=== PATIENT | female | born 1940 | race Caucasian/White ===

== ENCOUNTER 2018-01-29 03:54 | Inpatient (IN) ==
[2018-01-29] MEDS ORDERED: IOPAMIDOL 100 ML BOTTLE IV ONE (03:55)
--- NOTE | 2018-01-29 04:37 | Emergency Department Note ---
Fever HPI - General Chief Complaint: Fever Stated Complaint: fever Time Seen by Provider: 01/29/18 04:12 Source: family, EMS Mode of arrival: EMS Limitations: no limitations - History of Present Illness HPI Narrative: Patient brought in by ambulance due to increasing shortness of breath and fever. USP states 102 temperature recorded however current temperature now is 100.4. Patient had diverticulitis with perforation and thus had colectomy and osteotomy performed at [facility] and was also diagnosed with pneumonia related to MRSA on 01/22. She has been on IV vancomycin and Rocephin. She was seen on 01/25 at [facility] ED and her chest x- ray at that time was normal she has chronic back pain and that 1 of her complaints she has myasthenia gravis is just on prednisone. She does have a history of COPD and CHF her sats are 90% when she first arrived on room air but with O2 is back up to 94. States that prior to being hospitalized she did have oxygen used on a daily basis because of her COPD she states however she is not on oxygen at the usp.Her temperature is 100.4 the pulse is 141 respiratory rate 22 blood pressure 165/99 pulse ox 90% on room air rates the pain in her back is a 9/10 which she states is a chronic problem. USP states she is a DNR with limited interventions. Her daughter is here and confirms that she is DNR/DNI. Patient has a history of A. fib and CHF - Related Data Home Medications Medication Instructions Recorded Confirmed ALPRAZolam [Xanax] 1 mg PO HS 05/08/15 01/29/18 Cholecalciferol (Vitamin D3) 5,000 unit PO QDAY 05/08/15 01/29/18 [Vitamin D-3] albuterol sulfate HFA 90 2 puff INHALATION QID PRN g 06/18/17 01/29/18 mcg/actuation aerosol inhaler ipratropium bromide 0.02 % 0.5 mg INHALATION Q6H PRN ml 09/24/17 01/29/18 solution for inhalation ivabradine 5 mg tablet 5 mg PO BID 09/24/17 01/29/18 montelukast 10 mg tablet 10 mg PO QPM 09/24/17 01/29/18 trazodone 50 mg tablet 50 mg PO HS tab 09/24/17 01/29/18 Ibuprofen [Ibu] 600 mg PO ONCE PRN 01/29/18 01/29/18 Ondansetron HCl [Zofran ODT] 4 mg SL Q4-6HP PRN 01/29/18 01/29/18 Pantoprazole [Protonix] 40 mg PO ONCE 01/29/18 01/29/18 predniSONE [Prednisone] 12.5 mg PO ONCE 01/29/18 01/29/18 Allergies Allergy/AdvReac Type Severity Reaction Status Date / Time fluoxetine Allergy Verified 01/29/18 03:59 immune globulin,alpha (IgA) Allergy Verified 01/29/18 03:59 codeine AdvReac Mild Hallucinati Verified 09/24/17 13:19 ng morphine AdvReac Mild Hallucinati Verified 09/24/17 13:19 ng Review of Systems All systems ED: reviewed and negative except as stated. Constitutional: Reports: fever, chills Cardiovascular: Reports: dyspnea on exertion. Denies: chest pain, palpitations Respiratory: Reports: shortness of breath, cough Gastrointestinal: Reports: nausea. Denies: abdominal pain, vomiting Genitourinary: Denies: dysuria, urgency, frequency Musculoskeletal: Reports: back pain Fever PMH - Past Medical History [facility] Narrative: All Active Problems (Last Reviewed 09/24/17 @ 14:02 by Aung Bearden MD) Sleepiness (Acute) Medication side effects (Acute) Dyspnea (Chronic) Arthritis of sacroiliac joint of both sides (Chronic) Macular degeneration (Chronic) Osteoporosis (Chronic) Fracture of left foot (Chronic ~01/2006) Myasthenia gravis (Chronic) Atypical chest pain (Chronic) Past Surgical History (Last Reviewed 09/24/17 @ 14:02 by Aung Bearden MD) History of lumbar surgery (Chronic ~10/2010) Hx of total hysterectomy (Chronic) Family History (Last Reviewed 09/24/17 @ 14:02 by Aung Bearden MD) Mother Heart disease Hypertension Kidney disease Arthritis Osteoporosis Medical history: Reports: atrial fibrillation, CHF, hypertension, other ( myasthenia gravis. CHRONIC NARCOTICS. Chronic PREDNISONE. Pneumonia. Chronic anticoagulation with Lovenox.). Denies: cancer, CVA, DVT, DM, pulmonary embolus Psychiatric history: Reports: anxiety, depression - Social History smoking status: Never smoker (She does have COPD they are uncertain whether causes although her did smoke heavily) Alcohol use: Reports: None Drug use: Reports: none. Denies: marijuana Physical Exam Limitations: no limitations General appearance: anxious Head: atraumatic, normocephalic Eye: Present: normal appearance, PERRL ENT: normal exam, normal oropharynx, mucous membranes moist Neck: Present: normal inspection, full ROM Chest: Present: normal inspection, symmetric chest wall rise Respiratory: Present: normal lung sounds bilaterally Cardiovascular: Present: regular rate, normal rhythm, tachycardia. Absent: bradycardia Abdominal: Present: soft, normal bowel sounds. Absent: distention, tenderness, guarding, rebound, rigidity Extremities: Present: normal inspection, full ROM. Absent: tenderness Back: Present: tenderness, L-S tenderness Neurological: Present: alert, oriented X3, CN II-XII intact, reflexes normal. Absent: motor sensory deficit Psychiatric: Present: anxious Course Vital Signs Temperature 100.4 F H 01/29/18 03:59 Pulse Rate 141 H 01/29/18 03:59 Respiratory Rate 22 01/29/18 03:59 Blood Pressure 165/99 01/29/18 03:59 Pulse Oximetry (%) 90 01/29/18 03:59 Temperature 102.1 F H 01/29/18 06:51 Pulse Rate 144 H 01/29/18 07:07 Respiratory Rate 39 H 01/29/18 07:07 Blood Pressure 146/103 01/29/18 07:01 Pulse Oximetry (%) 90 01/29/18 07:07 Fever - MDM Narrative Medical decision making narrative: Patient was given a DuoNeb and during the DuoNeb her heart rate did go back down to 90 and appeared to be in flutter. However she is continued to run at 140. Patient given ditialzem.. Patient had an episode where her sats dropped to the 70s and required high flow O2 nonrebreather bag and however she did cough and did clear her lungs and her sats have come back to the 90s and is now on just 2 L nasal cannula at 95% d-dimer is elevated at 2.730 calcitonin less than 0.05 lactic acid running at 1.2 and can panel normal with a BUN of 8 and creatinine 1.0 sodium is 141 potassium 3.0 proBNP is 910 initial ABG showed pH of 7.47 the CO2 is 45 and the O2 at 72 on oxygen. CTA of the chest and abdomen is being performed at this time CTA shows no evidence of pulmonary emboli. Dr. Cam contacted requested a flu swab as well as a manual differential patient to be admitted. SIRS criteria - Lab Data Result diagrams: 01/29/18 04:18 01/29/18 04:18 Lab Results 01/29/18 01/29/18 01/29/18 Range/Units 04:18 04:18 04:18 WBC 3.5 L (4.5-11.0) K/mcL RBC 3.26 L (4.00-5.20) M/mcL Hgb 9.8 L (12.0-15.0) g/dL Hct 29.4 L (36.0-48.0) % MCV 90.2 (80.0-100.0) fL MCH 30.2 (26.0-34.0) pg MCHC 33.5 (31.0-36.0) g/dL RDW 17.2 H (11.5-14.5) % Plt Count 234 (140-440) K/mcL MPV 7.4 (7.4-10.4) fL Gran % 57.6 (38.0-78.0) % Lymph % (Auto) 20.5 (15.5-49.0) % [place] % (Auto) 21.0 H (1.0-12.0) % Eos % (Auto) 0.3 (0.0-7.0) % Baso % (Auto) 0.6 (0.0-2.0) % Gran # 2.0 (1.8-8.0) K/mcL Lymph # (Auto) 0.7 L (1.5-4.8) K/mcL [place] # (Auto) 0.7 (0.1-0.9) K/mcL Eos # (Auto) 0 (0.0-0.7) K/mcL Baso # (Auto) 0 (0.0-0.3) K/mcL D-Dimer (0.00-0.40) ug/ml VBG Lactic Acid 1.2 (0.5-2.2) mmol/L Sodium 141 (133-145) mmol/L Potassium 3.0 L (3.3-5.1) mmol/L Chloride 99 (96-108) mmol/L Carbon Dioxide 28 (22-30) mmol/L Anion Gap 14.0 (8-16) BUN 8 (8-23) mg/dl Creatinine 1.0 (0.6-1.1) mg/dl GFR Calculation 54 Glucose 72 (70-105) mg/dL Calcium 8.1 L (8.6-10.4) mg/dl Total Bilirubin 0.2 (0.0-1.0) mg/dL AST 22 (0-37) U/l ALT 15 (0-40) U/l Alkaline Phosphatase 80 (39-117) U/L NT-Pro-B Natriuret Pep 910.4 H (0-450) pg/ml Total Protein 5.6 L (5.9-8.4) gm/dL Albumin 3.2 (3.2-5.2) gm/dL Globulin 2.4 (2.2-3.7) gm/dL Albumin/Globulin Ratio 1.3 (1.0-2.3) Procalcitonin (<0.10) ng/mL Urine Color Urine Appearance Urine pH (5.0-9.0) Ur Specific [place] (1.000-1.035) Urine Protein (NEG) mg/dL Urine Glucose (UA) (NEG) mg/dL Urine Ketones (NEG) mg/dL Urine Occult Blood (<0.03) mg/dL Urine Nitrate (NEG) Urine Bilirubin (NEG) mg/dL Urine Urobilinogen (NEG) mg/dL Ur Leukocyte Esterase (NEG) /uL Urine RBC (0-1) /hpf Urine WBC (0-4) /hpf Ur Squamous Epith Cells (0-4) /hpf Amorphous Crystals (0) /hpf Urine Bacteria (0) /hpf Hyaline Casts (0-2) /lpf Urine Mucus (0) /hpf Ur Culture Indicated? 01/29/18 01/29/18 01/29/18 Range/Units 04:18 04:34 04:52 WBC (4.5-11.0) K/mcL RBC (4.00-5.20) M/mcL Hgb (12.0-15.0) g/dL Hct (36.0-48.0) % MCV (80.0-100.0) fL MCH (26.0-34.0) pg MCHC (31.0-36.0) g/dL RDW (11.5-14.5) % Plt Count (140-440) K/mcL MPV (7.4-10.4) fL Gran % (38.0-78.0) % Lymph % (Auto) (15.5-49.0) % [place] % (Auto) (1.0-12.0) % Eos % (Auto) (0.0-7.0) % Baso % (Auto) (0.0-2.0) % Gran # (1.8-8.0) K/mcL Lymph # (Auto) (1.5-4.8) K/mcL [place] # (Auto) (0.1-0.9) K/mcL Eos # (Auto) (0.0-0.7) K/mcL Baso # (Auto) (0.0-0.3) K/mcL D-Dimer 2.73 H (0.00-0.40) ug/ml VBG Lactic Acid (0.5-2.2) mmol/L Sodium (133-145) mmol/L Potassium (3.3-5.1) mmol/L Chloride (96-108) mmol/L Carbon Dioxide (22-30) mmol/L Anion Gap (8-16) BUN (8-23) mg/dl Creatinine (0.6-1.1) mg/dl GFR Calculation Glucose (70-105) mg/dL Calcium (8.6-10.4) mg/dl Total Bilirubin (0.0-1.0) mg/dL AST (0-37) U/l ALT (0-40) U/l Alkaline Phosphatase (39-117) U/L NT-Pro-B Natriuret Pep (0-450) pg/ml Total Protein (5.9-8.4) gm/dL Albumin (3.2-5.2) gm/dL Globulin (2.2-3.7) gm/dL Albumin/Globulin Ratio (1.0-2.3) Procalcitonin < 0.05 (<0.10) ng/mL Urine Color Yellow Urine Appearance Hazy Urine pH 6.0 (5.0-9.0) Ur Specific [place] 1.012 (1.000-1.035) Urine Protein 30 A (NEG) mg/dL Urine Glucose (UA) Negative (NEG) mg/dL Urine Ketones Neg (NEG) mg/dL Urine Occult Blood Neg (<0.03) mg/dL Urine Nitrate Neg (NEG) Urine Bilirubin Neg (NEG) mg/dL Urine Urobilinogen Neg (NEG) mg/dL Ur Leukocyte Esterase Neg (NEG) /uL Urine RBC 1 (0-1) /hpf Urine WBC 0 (0-4) /hpf Ur Squamous Epith Cells 0 (0-4) /hpf Amorphous Crystals Few A (0) /hpf Urine Bacteria 0 (0) /hpf Hyaline Casts 4 H (0-2) /lpf Urine Mucus Few (0) /hpf Ur Culture Indicated? No Disposition Pt seen by TERRA[facility] FINISHER/PA only: No Clinical Impression: Sepsis Disposition: Xfer As Inpt ([facility]) Condition: Fair Referrals: Ashley Azar ARNP [Primary Care Provider] -
[2018-01-29] MEDS ORDERED: IPRATROPIUM/ALBUTEROL 3 ML AMPUL.NEB NEB ONE (04:43)
--- NOTE | 2018-01-29 04:49 | XRay Report ---
CLINICAL INFORMATION: SOB COMPARISON: 01/25/2018 FINDINGS: Left PICC line tip remains in satisfactory position overlying the SVC/right atrial junction. Heart is mildly enlarged, but unchanged. Mediastinum and pulmonary vessels are normal. Minor airspace disease developing in the right base likely represents atelectasis. Right diaphragm is chronically elevated IMPRESSION: Minor right basilar atelectasis. Mild cardiomegaly - stable Interpreted and Authenticated by: Roland Simmons 01/29/18
[2018-01-29] MEDS ORDERED: 0.9 % SODIUM CHLORIDE 1,000 ML IV ONE (04:55)
[2018-01-29] MEDS ORDERED: VANCOMYCIN 1,500 MG in 0.9 % SODIUM CHLORIDE 500 ML IV ONE (04:55)
[2018-01-29] MEDS ORDERED: DILTIAZEM 25 MG/5 ML VIAL IV ONE (05:25)
[2018-01-29] MEDS ORDERED: DILTIAZEM 125 MG in DEXTROSE 5% IN WATER 100 ML IV SCH (05:30)
[2018-01-29 05:42] LABS: ALT/SGPT 15 U/l (0-40); Albumin 3.2 gm/dL (3.2-5.2); Albumin/Globulin Ratio 1.3 (1.0-2.3); Alkaline Phosphatase 80 U/L (39-117); Blood Urea Nitrogen 8 mg/dl (8-23); proBNP 910.4 pg/ml (0-450)
[2018-01-29 06:03] LABS: Basophils # (Auto) 0 K/mcL (0.0-0.3); Basophils % (Auto) 0.6 % (0.0-2.0); Eosinophils # (Auto) 0 K/mcL (0.0-0.7); Eosinophils % (Auto) 0.3 % (0.0-7.0); Granulocytes % (Auto) 57.6 % (38.0-78.0); Lymphocytes # (Auto) 0.7 K/mcL (1.5-4.8); Lymphocytes % (Auto) 20.5 % (15.5-49.0); Mean Cell Volume 90.2 fL (80.0-100.0); Mean Corpuscular HGB Conc 33.5 g/dL (31.0-36.0); Mean Corpuscular Hemoglobin 30.2 pg (26.0-34.0); Monocytes # (Auto) 0.7 K/mcL (0.1-0.9); Platelet Count 234 K/mcL (140-440); RBC 3.26 M/mcL (4.00-5.20); Red Cell Distribution Width 17.2 % (11.5-14.5)
[2018-01-29 06:42] LABS: Appearance,Urine HAZY; Bacteria,Urine 0 /hpf (0); Bilirubin,Urine NEG (NEG); Color,Urine YELLOW; Glucose,Urine (UA) NEGATIVE (NEG); Leukocyte Esterase,Urine NEG /uL (NEG); Mucus,Urine FEW /hpf (0); Protein,Urine 30 mg/dL (NEG); Specific Gravity,Urine 1.012 (1.000-1.035); Urine Amorphous Crystals FEW /hpf (0); Urine Blood NEG mg/dL (<0.03); Urine Hyaline Cast 4 /lpf (0-2); Urine RBC 1 /hpf (0-1); Urine Squamous Epithelial Cell 0 /hpf (0-4); Urine WBC 0 /hpf (0-4); Urobilinogen,Urine NEG (NEG)
[2018-01-29] MEDS ORDERED: ACETAMINOPHEN 325 MG TABLET PO ONE (06:45)
[2018-01-29] MEDS ORDERED: CEFEPIME 2 GM VIAL IV SCH (09:00)
--- NOTE | 2018-01-29 09:04 | Internal Med History&Physical ---
<Devan Gautam - Last Filed: 01/29/18 09:26> Medical - H&P: HPI Patient information: Note initiated : 01/29/18 at 8:55 am Service Date, if different from initiated Date: [] Patient: Inessa Torres a 77 y/o F admitted on for fever. Chief Complaint: [] Chief complaint: SOB History of present illness: Ms. Torres is a 77 year old F who presented to the ED today with a miriad of problems. Both her and her ex- [id number] provided the history. She states that she has been short of breath for the last few days with a green productive cough while in [facility] home. Pt came in a couple of days ago to the ED for productive cough, but was rehydrated and not admitted (per pt). 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 Manzano. She also had a portion of her colon removed in [place]. All of this resulted in her being placed in [facility] for rehabilitation. She has been there for a few weeks, but only in the last few days has complained of SOB. She is on 2L of oxygen at home, but received none at [place]. Pt also reports fever , chills and recent weight loss. She also states she has 8/10 pain all over her body. Daughter in law states that the aids at [place] were doing a poor job of changing/emptying pt's colostomy bag and that some contents might have entered a nearby recent suture. - Constitutional Constitutional: Present: chills, fatigue, fever(s), headache(s), night sweats, weakness, weight loss - Cardiovascular Cardiovascular: Present: chest pain (when coughing), irregular heart rhythm, leg edema, palpatations - Respiratory Respiratory: Present: cough, dyspnea, excessive phlegm production, pain with cough. Absent: hemoptysis - Gastrointestinal Gastrointestinal: Present: early satiety, nausea. Absent: abdominal pain, diarrhea, vomiting - Musculoskeletal Musculoskeletal: Present: arthralgias, back pain, myalgias - Integumentary Integumentary: Present: dry skin, unusual bruising - Neurological Neurological: Present: dizziness, headache(s), weakness Medical - H&P: PMH Medical history: Myasthenia gravis HTN Paralyzed rt diaphragm Surgical history: Hysterectomy 40 years ago Appendectomy 40 years ago Back surgery 4 years ago Hip surgery 1-2 months ago Colostomy 1-2 months ago Colectomy 1-2 months ago Family history: reviewed and not pertinent Social history: Never smoker Doesn't' drink alcohol Smoking status: Never smoker Have you smoked in the last 12 months: No Alcohol use: none Medical - H&P: Meds Home Medications Medication Instructions Recorded Confirmed Type ALPRAZolam [Xanax] 1 mg PO HS 05/08/15 01/29/18 History Cholecalciferol (Vitamin D3) 5,000 unit PO QDAY 05/08/15 01/29/18 History [Vitamin D-3] albuterol sulfate HFA 90 2 puff INHALATION QID PRN g 06/18/17 01/29/18 History mcg/actuation aerosol inhaler ipratropium bromide 0.02 % 0.5 mg INHALATION Q6H PRN ml 09/24/17 01/29/18 History solution for inhalation ivabradine 5 mg tablet 5 mg PO BID 09/24/17 01/29/18 History montelukast 10 mg tablet 10 mg PO QPM 09/24/17 01/29/18 History trazodone 50 mg tablet 50 mg PO HS tab 09/24/17 01/29/18 History Ibuprofen [Ibu] 600 mg PO ONCE PRN 01/29/18 01/29/18 History Ondansetron HCl [Zofran ODT] 4 mg SL Q4-6HP PRN 01/29/18 01/29/18 History Pantoprazole [Protonix] 40 mg PO ONCE 01/29/18 01/29/18 History predniSONE [Prednisone] 12.5 mg PO ONCE 01/29/18 01/29/18 History Allergies Allergy/AdvReac Type Severity Reaction Status Date / Time fluoxetine Allergy Verified 01/29/18 03:59 immune globulin,alpha (IgA) Allergy Verified 01/29/18 03:59 codeine AdvReac Mild Hallucinati Verified 09/24/17 13:19 ng morphine AdvReac Mild Hallucinati Verified 09/24/17 13:19 ng Medical - H&P: Exam - Constitutional Vitals: Temp Pulse Resp BP Pulse Ox 100.3 F H 144 H 27 H 130/79 87 L 01/29/18 08:33 01/29/18 08:28 01/29/18 08:28 01/29/18 07:31 01/29/18 08:28 General appearance: no acute distress - Eye Eye exam: Present: normal appearance - ENT ENT exam: Present: mucous membranes moist - Respiratory Respiratory exam: Present: accessory muscle use, decreased breath sounds, rhonchi - Expanded Respiratory Exam Location: decreased breath sounds: Left, Right, Upper, Lower, rhonchi: Left, Right, Upper, Lower - Cardiovascular Cardiovascular exam: Present: gallop, irregular rhythm, +S1, +S2. Absent: rubs , systolic murmur - GI/Abdominal GI/Abdominal exam: Present: normal bowel sounds, soft. Absent: guarding, rigid , tenderness - Extremities Exam Extremities exam: Present: tenderness, Foot pink and warm - Expanded Upper Extremities Exam Hand wrist exam: Present: ecchymosis - Expanded Neurological Exam Neuro motor strength exam: LUE: 05/07, RUE: 05/07, LLE: 05/07, RLE: 2 Medical - H&P: Reslt - Labs CBC & Chem 7: 01/29/18 04:18 01/29/18 04:18 Labs: Short CBC 01/29/18 Range/Units 04:18 WBC 3.5 L (4.5-11.0) K/mcL Hgb 9.8 L (12.0-15.0) g/dL Hct 29.4 L (36.0-48.0) % Plt Count 234 (140-440) K/mcL BMP 01/29/18 04:18 Sodium 141 Potassium 3.0 L Chloride 99 Carbon Dioxide 28 BUN 8 Creatinine 1.0 Glucose 72 Calcium 8.1 L Liver Function 01/29/18 Range/Units 04:18 Total Bilirubin 0.2 (0.0-1.0) mg/dL AST 22 (0-37) U/l ALT 15 (0-40) U/l Alkaline Phosphatase 80 (39-117) U/L Albumin 3.2 (3.2-5.2) gm/dL Urine 01/29/18 Range/Units 04:52 Urine Color Yellow Urine Appearance Hazy Urine pH 6.0 (5.0-9.0) Ur Specific [place] 1.012 (1.000-1.035) Urine Protein 30 A (NEG) mg/dL Urine Glucose (UA) Negative (NEG) mg/dL Medical - H&P: A/P (1) Shortness of breath Current visit: Yes Status: Acute Pt currently on vanco (MRSA) and Rocephin? for CAP, but apparently not working. Will change cefepime to Zosyn to cover for pseudomonas and get sputum culture to narrow abx's later. (2) Sepsis Current visit: Yes Status: Acute Blood culture have been drawn. Abx's for her PNA should cover most organisms. Will adjust according to cultures. (3) Heart palpitations Current visit: Yes Status: Acute Pt started on diltiazem in ED by Dr. Drake for potential AFib. <Nick Sams - Last Filed: 01/29/18 11:46> Medical - H&P: HPI Patient information: Note initiated : 01/29/18 at 11:24 am Service Date, if different from initiated Date: [] Patient: Inessa Torres a 77 y/o F admitted on 01/29/18 for fever. Chief Complaint: [] History of present illness: Ms. Torres is a 77 year old F who [facility] shortness of breath fever along with mental status change weakness that has evolved over the last 72 hours. Patient has been recovering from a recent hospitalization at [facility] and she was treated for bowel perforation and underwent colectomy with colostomy. She was transferred for continued rehabilitation. She was also diagnosed with MRSA pneumonia and was continuing Rocephin/vancomycin at the care center. However over the last few days patient has had worsening symptoms as above including shortness of breath and fatigue ,malaise ,fever and shaking chills. She was transferred to [facility] for further evaluation. Initial workup in the ER was consistent with sepsis with fever and leukopenia however source was unclear. She was atrial fibrillation with rapid ventricular rate and was started on diltiazem. She underwent CT scan angiogram without any evidence of PE. CT abdomen was unremarkable. Hospitalist service consulted in light of above. Patient was started on antibiotic coverage. At the Time of evaluation and remembers at present. Patient was lethargic and weak however was able to provide answers to some of the questions and provide review of systems. She denies increasing ostomy output however her abdominal midline incision has not been feeling well. She denies dysuria, night sweats. She denies headache photophobia or chest pain. We had the process of obtaining records from previous hospitalization including hip fracture/bowel surgeries/pneumonia and discharged summary. I reviewed previous records including rayon coner report from 09/24/17 for evaluation of nonfunctioning right diaphragm Review of systems A 10 point review of systems was performed and is negative except as discussed above Agree with past medical/social/family history as per medical student's note above Vital signs BP 108/68, heart rate 144 temperature 102.1 lethargic diminished breath sounds bases Mid abdominal incision site with purulent discharge but no fluctuation at the lower end of incision, fredi noted. Left lower quadrant colostomy No lymphedema Agree with the rest of examination as per student Labs and imaging as above Medical - H&P: Exam - Constitutional Vitals: Temp Pulse Resp BP Pulse Ox 100.3 F H 79 27 H 108/68 100 01/29/18 08:33 01/29/18 10:25 01/29/18 08:28 01/29/18 09:14 01/29/18 10:25 Medical - H&P: Reslt - Labs CBC & Chem 7: 01/29/18 04:18 01/29/18 04:18 Labs: Short CBC 01/29/18 01/29/18 Range/Units 04:18 04:18 WBC 3.5 L TNP (4.5-11.0) K/mcL Hgb 9.8 L TNP (12.0-15.0) g/dL Hct 29.4 L TNP (36.0-48.0) % Plt Count 234 TNP (140-440) K/mcL BMP 01/29/18 04:18 Sodium 141 Potassium 3.0 L Chloride 99 Carbon Dioxide 28 BUN 8 Creatinine 1.0 Glucose 72 Calcium 8.1 L Liver Function 01/29/18 Range/Units 04:18 Total Bilirubin 0.2 (0.0-1.0) mg/dL AST 22 (0-37) U/l ALT 15 (0-40) U/l Alkaline Phosphatase 80 (39-117) U/L Albumin 3.2 (3.2-5.2) gm/dL Urine 01/29/18 Range/Units 04:52 Urine Color Yellow Urine Appearance Hazy Urine pH 6.0 (5.0-9.0) Ur Specific [place] 1.012 (1.000-1.035) Urine Protein 30 A (NEG) mg/dL Urine Glucose (UA) Negative (NEG) mg/dL Medical - H&P: A/P (1) Nosocomial condition Current visit: Yes Status: Acute 77-year-old with a recent abdominal surgery/MRSA pneumonia undergoing rehabilitation at [facility] home receiving IV antibiotics decompensated with fever and shortness of breath progressing over the last 3 days * Nosocomial pneumonia-extend coverage with vancomycin and zosyn to include Pseudomonas and intraabdomial pathogens. Infectious disease consult. * Atrial fibrillation with RVR secondary to above- start diltiazem drip. Continue rate control measures and transition to oral diltiazem once adequate rate control achieved * Sepsis with leukopenia and fever. 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
[2018-01-29] MEDS ORDERED: PANTOPRAZOLE 40 MG TABLET PO SCH (10:04)
[2018-01-29] MEDS ORDERED: MAGNESIUM SULFATE 2 GM/50 ML BAG IV PRN (10:04)
[2018-01-29] MEDS ORDERED: VANCOMYCIN PER PHARMACY IV SCH (10:04)
[2018-01-29] MEDS ORDERED: ACETAMINOPHEN 325 MG TABLET PO PRN (10:04)
[2018-01-29] MEDS: BUDESONIDE 0.5 MG/2 ML AMPUL.NEB NEB SCH ×2 (10:20→18:50)
[2018-01-29] MEDS ORDERED: BUDESONIDE 0.5 MG/2 ML AMPUL.NEB NEB ONE (10:24)
[2018-01-29] MEDS: METOPROLOL TARTRATE 5 MG/5 ML VIAL IV SCH ×2 (11:10→21:42)
[2018-01-29] MEDS: DILTIAZEM 125 MG in DEXTROSE 5% IN WATER 100 ML IV SCH ×2 (11:15→23:42)
[2018-01-29 11:22] LABS: Anisocytosis 1+ (NONE SEEN); Band Neutrophils % 4 % (0-10); Lymphocytes % 22 % (15-49); Monocytes % (Manual) 14 % (1-12); Platelet Estimate NORMAL (NORMAL); RBC Morphology ABNORM (NORMAL); Segmented Neutrophils % 60 % (38-78)
[2018-01-29] MEDS: DOCUSATE SODIUM 100 MG CAPSULE PO SCH ×3 (11:35→19:43)
[2018-01-29] MEDS: MULTIVIT,THER IRON,CA,FA & MIN 1 TABLET PO SCH ×2 (11:35→11:52)
[2018-01-29] MEDS: HEPARIN 5,000 UNIT/ML VIAL SQ SCH ×2 (11:36→19:42)
[2018-01-29] MEDS: 0.9 % SODIUM CHLORIDE 1,000 ML IV SCH (11:37)
[2018-01-29] MEDS: IPRATROPIUM/ALBUTEROL 3 ML AMPUL.NEB NEB SCH ×4 (11:56→22:50)
[2018-01-29] MEDS: methylPREDNISolone SOD SUCC 125 MG/2 ML VIAL IV SCH ×2 (12:13→17:55)
[2018-01-29] MEDS: PIPERACILLIN SODIUM/TAZOBACTAM 3.375 GM in DEXTROSE 5% IN WATER 50 ML IV SCH ×2 (12:13→17:55)
--- NOTE | 2018-01-29 14:05 | Cat Scan Report ---
CLINICAL INFORMATION: Elevated d-dimer and shortness of breath COMPARISON: 01/20/2018 and 01/04/[address] TECHNIQUE: 80 cc of Isovue-300 were injected intravenously. Using SmartPrep to maximize pulmonary artery opacification, 2.5 mm helical slices were obtained from the lung apices through the lung bases. Following reconstruction, 2.5 mm sagittal, coronal, and axial reformations were processed. The exam was reviewed at mediastinal, lung, and bone windows. The exam was performed using radiation dose optimization techniques including, but not limited to, automated exposure control, adjustment of the mA and/or kV according to patient size and use of iterative reconstruction technique. FINDINGS: Pulmonary parenchymal windows show chronic complete atelectasis of the entire right middle lobe. There is also subsegmental atelectasis in both posterior lower lobes and focal pleural-based scarring in the lingula which demonstrates long-term stability. No new pulmonary abnormalities. No effusions. There are few tiny nodules less than 5 mm scattered within the tracheobronchial lumen has also described on the recent CT nine days ago. Presumably, these represent tiny polyps or adherent mucus. Mediastinal windows show the pulmonary arteries are normal in contour and caliber and well opacified - no evidence of embolus. The thoracic aorta x-ray minimal diffuse wall thickening and is normal in diameter. There is no adenopathy in the mediastinal hilar or axillary regions. Heart is moderately enlarged and there is moderate atherosclerotic plaque scattered throughout the coronary arteries. Sternotomy changes noted. Esophagus is grossly normal. Inhomogeneous thyroid with a few small low-attenuation nodule are stable. IMPRESSION: 1. Complete chronic atelectasis of the right middle lobe is also noted on CTs dating back two years. No endobronchial mass or other cause for obstruction. 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 Subsegmental atelectasis noted in both posterior lower lobes. The remaining lungs are clear. 2. Pulmonary arteries are well opacified - no evidence of embolus. 3. Scattered tiny nodules in the tracheobronchial tree are also seen on today's exam. They may represent small polyps or adherent mucus. Interpreted and Authenticated by: Roland Simmons 01/29/18
--- NOTE | 2018-01-29 14:15 | Cat Scan Report ---
CLINICAL INFORMATION: Recent partial sigmoid colectomy colostomy and Lackey's pouch creation abdominal pain COMPARISON: Postoperative abdomen and pelvic CT nine days prior - 01/20/2018. TECHNIQUE: Following enteric contrast, 80 cc of Isovue-300 were injected intravenously, and 60 seconds later, 0.625 mm helical slices were obtained from the mid heart through the subtrochanteric regions. Following reconstruction, 2.5 mm sagittal, coronal and axial reformatted images were processed and reviewed at bone, lung and soft tissue windows. Five minutes later, 0.625 mm helical slices were obtained from the mid heart through the kidneys and viewed at soft tissue windows.The exam was performed using radiation dose optimization techniques including, but not limited to, automated exposure control, adjustment of the mA and/or kV according to patient size and use of iterative reconstruction technique. FINDINGS: Gallbladder and bile ducts are normal: CBD measures 5 mm. The liver, both kidneys, adrenal glands, spleen are normal in size, configuration and attenuation without focal lesion. 16 mm well-circumscribed cyst in the pancreatic head is again noted. The remaining pancreas, including the pancreatic ducts, normal.. The aorta is normal in contour and caliber with scattered atherosclerotic plaque. Aortic branches are normal. Images should the pelvis show Powers catheter well-positioned in the urinary bladder with complete bladder decompression.. Hysterectomy last oophorectomy changes are noted. Left lower quadrant colostomy featuring the descending colon swung in the anterior abdominal wall again appreciated. Mild edema within Camper's fascia surrounding the colostomy is stable Lackey's pouch been created of the mid/distal sigmoid colon and rectum. Proximal sigmoid colon shows minimal wall thickening and inflammation in the perisigmoid fat with a small (2.6 cm) free fluid collection. No luther abscess. Findings compatible with resolving sigmoid diverticulitis. Nonunified old fractures of the left superior pubic ramus root, the left inferior pubic ramus and right pubic symphysis are seen - as before. Fusion changes lower lumbar spine stable. IMPRESSION: 1. Partial sigmoid colectomy with descending colon swung into a left lower quadrant colostomy and Lackey's pouch creation the residual sigmoid colon and rectum. Mild sigmoid diverticulitis within the oversewn proximal sigmoid colon has improved since the comparison CT nine days prior. No evidence of abscess. There is a small amount of fluid adjacent to the sigmoid colon which has decreased. 2. 16 mm simple cyst in the pancreatic head is almost certainly merely a simple cyst rather than IPMN or cystadenoma. Suggest follow ultrasound in 6-12 months Interpreted and Authenticated by: Roland Simmons 01/29/18
[2018-01-29] MEDS: 0.9 % SODIUM CHLORIDE 10 ML SYRINGE IV SCH ×2 (16:25→22:40)
[2018-01-29] MEDS: POTASSIUM CHLORIDE 20 MEQ PACKET PO PRN (18:45)
[2018-01-29] MEDS: ALPRAZolam 0.5 MG TABLET PO SCH (19:42)
[2018-01-29] MEDS: traZODone HCL 50 MG TABLET PO SCH (19:42)
[2018-01-29] MEDS: SENNOSIDES/DOCUSATE SODIUM 1 TAB TABLET PO SCH (19:43)
[2018-01-29] MEDS: MONTELUKAST 10 MG TABLET PO SCH (19:43)
[2018-01-29] MEDS: ACETAMINOPHEN 1,000 MG/100 ML BOTTLE IV PRN (20:24)
[2018-01-29] MEDS: METOPROLOL TARTRATE 50 MG TABLET PO SCH (21:05)
[2018-01-29] MEDS: ONDANSETRON 4 MG/2 ML VIAL IV PRN (21:13)
[2018-01-29] MEDS ORDERED: KETOROLAC 15 MG/ML VIAL ONE (22:33)
[2018-01-29] MEDS ORDERED: KETOROLAC 15 MG/ML VIAL IV PRN (22:37)
[2018-01-30] MEDS: PIPERACILLIN SODIUM/TAZOBACTAM 3.375 GM in DEXTROSE 5% IN WATER 50 ML IV SCH ×4 (00:05→17:31)
[2018-01-30] MEDS: methylPREDNISolone SOD SUCC 125 MG/2 ML VIAL IV SCH ×4 (00:05→17:36)
[2018-01-30] MEDS: ACETAMINOPHEN 1,000 MG/100 ML BOTTLE IV PRN (02:06)
[2018-01-30] MEDS: IPRATROPIUM/ALBUTEROL 3 ML AMPUL.NEB NEB SCH ×6 (02:35→22:49)
[2018-01-30] MEDS ORDERED: KETOROLAC 15 MG/ML VIAL ONE (04:40)
[2018-01-30] MEDS: 0.9 % SODIUM CHLORIDE 10 ML SYRINGE IV SCH ×3 (05:26→20:58)
[2018-01-30 06:09] LABS: Mean Corpuscular HGB Conc 32.8 g/dL (31.0-36.0); Mean Corpuscular Hemoglobin 29.8 pg (26.0-34.0); Platelet Count 163 K/mcL (140-440); RBC 2.83 M/mcL (4.00-5.20); Red Cell Distribution Width 17.4 % (11.5-14.5)
[2018-01-30 07:06] LABS: ALT/SGPT 12 U/l (0-40); Albumin 2.7 gm/dL (3.2-5.2); Albumin/Globulin Ratio 1.1 (1.0-2.3); Alkaline Phosphatase 62 U/L (39-117); Bilirubin,Direct < 0.2 mg/dL (0.0-0.3); Blood Urea Nitrogen 11 mg/dl (8-23); Gamma Glutamyl Transpeptidase 62 U/L (5-36)
[2018-01-30] MEDS: BUDESONIDE 0.5 MG/2 ML AMPUL.NEB NEB SCH ×2 (07:26→19:47)
[2018-01-30] MEDS ORDERED: DILTIAZEM 125 MG in DEXTROSE 5% IN WATER 100 ML IV PRN (08:15)
[2018-01-30] MEDS: VANCOMYCIN 1,000 MG in 0.9 % SODIUM CHLORIDE 250 ML IV SCH (09:00)
[2018-01-30 09:08] LABS: Anisocytosis 1+ (NONE SEEN); Band Neutrophils % 5 % (0-10); Lymphocytes % 9 % (15-49); Monocytes % (Manual) 4 % (1-12); Platelet Estimate NORMAL (NORMAL); RBC Morphology ABNORM (NORMAL); Segmented Neutrophils % 82 % (38-78)
[2018-01-30] MEDS: 0.9 % SODIUM CHLORIDE 1,000 ML IV SCH ×3 (09:34→15:02)
[2018-01-30] MEDS: HEPARIN 5,000 UNIT/ML VIAL SQ SCH ×2 (09:43→20:56)
[2018-01-30] MEDS: MULTIVIT,THER IRON,CA,FA & MIN 1 TABLET PO SCH (09:43)
[2018-01-30] MEDS: DOCUSATE SODIUM 100 MG CAPSULE PO SCH ×2 (09:43→20:56)
[2018-01-30] MEDS: METOPROLOL TARTRATE 50 MG TABLET PO SCH ×2 (09:43→20:56)
--- NOTE | 2018-01-30 12:28 | Internal Med Progress Note ---
Medical - PN: Subj Patient information: Note initiated : 01/30/18 at 12:13 pm Service Date, if different from initiated Date: [] Patient: Inessa Torres 77 y/o F admitted on 01/29/18 for fever. Chief Complaint: f/u febrile illness Interval history: 01/29 Ms. Torres is a 77 year old F who presents from [facility] with worsening shortness of breath fever along with mental status change weakness that has evolved over the last 72 hours. Patient has been recovering from a recent hospitalization at [place]. Where and she was treated for bowel perforation and underwent colectomy with colostomy. She was transferred for continued rehabilitation. She was also diagnosed with MRSA pneumonia and was continuing Rocephin/vancomycin at the care center. However over the last few days patient has had worsening symptoms as above including shortness of breath and fatigue ,malaise ,fever and shaking chills. She was transferred to [facility] for further evaluation. Initial workup in the ER was consistent with sepsis with fever and leukopenia however source was unclear. She was atrial fibrillation with rapid ventricular rate and was started on diltiazem. She underwent CT scan angiogram without any evidence of PE. CT abdomen was unremarkable. Hospitalist service consulted in light of above. Patient was started on antibiotic coverage. At the Time of evaluation and remembers at present. Patient was lethargic and weak however was able to provide answers to some of the questions and provide review of systems. She denies increasing ostomy output however her abdominal midline incision has not been feeling well. She denies dysuria, night sweats. She denies headache photophobia or chest pain. 01/30 Significant old records reviewed from [facility]. Patient with a history of pelvic fracture about 2 months ago, had returned to home Early January, abdominal pain and diarrhea-->diagnosed and treated for diverticulitis, returned home Forty-eight hours after returning home, recuttent abdominal pain, nausea, no stool, decreased flatus 01/14-Presents to [place], found to have perforated diverticulitis with pneumoperitoneum and pneumomediastinum (tracking from peritoneum) Transferred to [facility], underwent laparotomy, sigmoid resection with sigmoidostomy and Martin's procedure Cultures: Abd: Citrobacter freundii; Klebsiella pneumoniae, Enterococcus faecalis, MRSA , Bacteroides fragilis, Clostridium perfringens Sputum: MRSA She was treated with ceftriaxone, metronidazole (and presumptive vancomycin-as is on SNF med list, but not in D/C summary) At [facility], receiving vancomycin and ceftriaxone, do not see metronidazole. Overnight, significant back pain (chronic low back pain with sciatica, worsened in bed), Tx with ketorolac Codeine listed as an allergy, but she confirms she takes Tylenol #3 at home--> allergy list updated, ketorolac stopped Today feels a little better; coughing, but no sputum; some abdominal pain, but unchanged. Cultures NGTD - Constitutional Vitals: Vital Signs Temp Pulse Resp BP Pulse Ox 97.7 F 76 16 143/70 97 01/30/18 06:02 01/30/18 11:54 01/30/18 11:54 01/30/18 06:02 01/30/18 07:30 Period Temp Pulse Resp BP Sys/Montiel Pulse Ox Last 24 Hr 97.1 F-98.9 F 59-147 16-32 107-155/58-90 93-100 Intake and Output 01/29/18 01/30/18 01/30/18 21:59 05:59 13:59 Intake Total 163 / 163 200 / 200 994 / 994 Output Total 927 / 927 181 / 181 34 / 34 Balance -764 / -764 19 960 / 960 Weight 163 lb 9 oz Intake & Output: Intake & Output 01/29/18 01/30/18 01/30/18 21:59 05:59 13:59 Intake Total 163 / 163 200 / 200 994 / 994 Output Total 927 / 927 181 / 181 34 / 34 Balance -764 / -764 19 960 / 960 Weight 163 lb 9 oz Intake: IV 163 / 163 200 / 200 994 / 994 Cardizem 125 mg In Dextrose 5% 63 / 63 0 / 0 in Water 100 ml @ 5 MG/HR 5 mls /hr IV Q12H [facility] Rx#:[id number] Zosyn 3.375 gm In Dextrose 5% 100 / 100 50 / 50 in Water 50 ml @ 100 mls/hr IV Q6H ARUN Rx#:[id number] Output: Urine Catheter Amount 927 / 927 181 / 181 34 / 34 Other: Meal Breakfast Percent of Meal Consumed 100% Feeding Ability Independent Urine Appearance Uretheral (Powers) Clear Urine Color Straw Straw Uretheral (Powers) Dark Yellow Straw Urine Odor Normal Exam: General: In bed, mildly uncomfortable Chest: Diminished at bases, no rales, no wheezes, unlabored CV: RRR, trace edema Abd: Soft, mild left-sided TTP, no rebound; LLQ ostomy intact with stool Skin: Mid-line abdominal wound with few superficial areas of breakdown, no discharge Neuro: Alert, Ox3 Medical - PN: Obj Da - Labs CBC & Chem 7: 01/30/18 12:41 01/30/18 04:00 Labs: Abnormal Lab Results 01/30/18 01/30/18 01/29/18 04:00 04:00 11:30 WBC 1.4 L RBC 2.83 L Hgb 8.4 L Hct 25.8 L RDW 17.4 H [place] % (Auto) Lymph # (Auto) Seg Neutrophils % 82 H Lymphocytes % 9 L Monocytes % (Manual) Nucleated RBCs RBC Morphology Abnorm A Polychromasia Anisocytosis 1+ A ESR 91 H D-Dimer Potassium Glucose 124 H Calcium 7.6 L GGT 62 H Lactate Dehydrogenase 270 H C-Reactive Protein NT-Pro-B Natriuret Pep Total Protein 5.1 L Albumin 2.7 L Triglycerides 151 H Urine Protein Amorphous Crystals Hyaline Casts 01/29/18 01/29/18 01/29/18 10:41 04:52 04:34 WBC RBC Hgb Hct RDW [place] % (Auto) Lymph # (Auto) Seg Neutrophils % Lymphocytes % Monocytes % (Manual) 14 H Nucleated RBCs 1 H RBC Morphology Abnorm A Polychromasia 1+ A Anisocytosis 1+ A ESR D-Dimer 2.73 H Potassium Glucose Calcium GGT Lactate Dehydrogenase C-Reactive Protein NT-Pro-B Natriuret Pep Total Protein Albumin Triglycerides Urine Protein 30 A Amorphous Crystals Few A Hyaline Casts 4 H 01/29/18 01/29/18 01/29/18 04:18 04:18 04:18 WBC 3.5 L RBC 3.26 L Hgb 9.8 L Hct 29.4 L RDW 17.2 H [place] % (Auto) 21.0 H Lymph # (Auto) 0.7 L Seg Neutrophils % Lymphocytes % Monocytes % (Manual) Nucleated RBCs RBC Morphology Polychromasia Anisocytosis ESR D-Dimer Potassium 3.0 L Glucose Calcium 8.1 L GGT Lactate Dehydrogenase C-Reactive Protein 1.8 H NT-Pro-B Natriuret Pep 910.4 H Total Protein 5.6 L Albumin Triglycerides Urine Protein Amorphous Crystals Hyaline Casts Meds: Medications Acetaminophen/Codeine Phosphate (Tylenol #3) 1 tab PO Q4-6HP PRN PRN Reason: PAIN LEVEL 3-6 Albuterol/Ipratropium (Duoneb) 3 ml NEB Q4HRT [facility] Last Admin: 01/30/18 11:40 Dose: 3 ml Alprazolam (Xanax) 1 mg PO HS [facility] Last Admin: 01/29/18 19:42 Dose: 1 mg Budesonide (Pulmicort) 0.5 mg NEB Q12 [facility] Last Admin: 01/30/18 07:26 Dose: 0.5 mg Docusate Sodium (Colace) 100 mg PO BID [facility] Last Admin: 01/30/18 09:43 Dose: 100 mg Heparin Sodium (Porcine) (Heparin) 5,000 unit SQ Q12 [facility] Last Admin: 01/30/18 09:43 Dose: 5,000 unit Heparin Sodium (Porcine) (Heparin Flush) 2 ml IV Q12 [facility] Last Admin: 01/30/18 09:42 Dose: 2 ml Magnesium Sulfate (Magnesium Sulfate) 2 gm in 50 mls @ 50 mls/hr IV UD PRN PRN Reason: MG = or < 1.7 Vancomycin HCl 1,000 mg/ (Sodium Chloride) 250 mls @ 250 mls/hr IV DAILY [facility] Last Admin: 01/30/18 09:00 Dose: 250 mls/hr Piperacillin Sod/Tazobactam (Sod 3.375 gm/ Dextrose) 50 mls @ 100 mls/hr IV Q6H [facility] Last Admin: 01/30/18 11:38 Dose: 100 mls/hr Sodium Chloride (Sodium Chloride 0.9%) 1,000 mls @ 100 mls/hr IV .Q10H [facility] Stop: 01/31/18 02:29 Last Admin: 01/30/18 09:37 Dose: Not Given Iron Carb/Multivit/[place]/Folic Acid (Multivitamin W/Minerals) 1 tab PO DAILY [facility] Last Admin: 01/30/18 09:43 Dose: 1 tab Methylprednisolone Sodium Succinate (Solu-Medrol) 62.5 mg IV Q6 [facility] Last Admin: 01/30/18 11:38 Dose: 62.5 mg Metoprolol Tartrate (Lopressor) 50 mg PO BID [facility] Last Admin: 01/30/18 09:43 Dose: 50 mg Montelukast Sodium (Singular) 10 mg PO QPM [facility] Last Admin: 01/29/18 19:43 Dose: 10 mg Ivabradine Hcl [ Corlanor] 5 Mg Tablet 5 mg PO BID [facility] Last Admin: 01/30/18 09:31 Dose: Not Given Ondansetron HCl (Zofran) 4 mg IV Q4-6HP PRN PRN Reason: Nausea And Vomiting Last Admin: 01/29/18 21:13 Dose: 4 mg Potassium Chloride (Klor-Con) 40 meq PO DAILYP PRN PRN Reason: K+ < 3.5 Last Admin: 01/29/18 18:45 Dose: 40 meq Senna/Docusate Sodium (Senna Plus Tablet) 1 tab PO HS [facility] Last Admin: 01/29/18 19:43 Dose: 1 tab Sodium Chloride (Saline Flush) 10 ml IV Q8 [facility] Last Admin: 01/30/18 05:26 Dose: 10 ml Trazodone HCl (Desyrel) 50 mg PO [facility] Last Admin: 01/29/18 19:42 Dose: 50 mg Vancomycin HCl (Vancomycin Per Pharmacy) 1 order IV UD [facility] Medical - PN: A/P - Time Spent With Patient Total time spent is greater than 50% in coordination of care (as documented) at patient's floor/unit and/or counseling patient: Greater than 35 minutes - Narrative A/P Narrative: 77-year-old with a recent abdominal surgery/MRSA pneumonia undergoing rehabilitation at [facility] home receiving IV antibiotics decompensated with fever and shortness of breath progressing over the last 3 days Febrile illness at [facility] facility in the setting of recent peritonitis from perforated diverticulitis. Status post laparotomy with sigmoid colectomy and Lackey's procedure at outside hospital ([facility], ). Unclear if current presentation is secondary to untreated anaerobic infection (metronidazole not on her skilled facility MAR). Otherwise vancomycin and ceftriaxone should have fully covered the remainder of pathogens cultured from her abdominal wound. Differential also includes pneumonia, viral illness. Plan: Continue vancomycin and Zosyn, follow up cultures here. Influenza swab negative, check respiratory viral panel as cause of fever. Nosocomial pneumonia with MRSA cultured from sputum at [facility]. Continue with vancomycin, Zosyn added to cover other resistant gram negatives and may have been acquired at skilled facility. Plan: Continue current antibiotics, follow-up cultures Atrial fibrillation rapid ventricular response. Patient is converted to sinus rhythm. Home metoprolol resumed. Plan: Continue telemetry, continue metoprolol. Sepsis. She has leukopenia, worsened this morning with a white count 1.4, better at 2.1 on recheck. May be secondary to sepsis. She did not have leukopenia when she was at [facility], indeed was able to mount a leukocytosis. Currently leukopenia could be secondary to sepsis. Plan: Continue antibiotics, monitor. Abdominal wound from exploratory laparotomy. Status post colostomy. Plan: Wound care, ostomy care. Anxiety disorder. Stable. Plan: Continue with alprazolam and trazodone. 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 Plan: Continue bronchodilators, supplemental oxygen, incentive spirometer. Full code Prophylaxis heparin Medical - PN: Qual - VTE Deep Vein Thrombosis/Pulmonary Embolism Present on Admission: No
[2018-01-30 13:10] LABS: Mean Cell Volume 89.1 fL (80.0-100.0); Mean Corpuscular HGB Conc 33.8 g/dL (31.0-36.0); Mean Corpuscular Hemoglobin 30.1 pg (26.0-34.0); Platelet Count 158 K/mcL (140-440); RBC 2.84 M/mcL (4.00-5.20); Red Cell Distribution Width 16.8 % (11.5-14.5)
[2018-01-30 13:42] LABS: Anisocytosis 1+ (NONE SEEN); Band Neutrophils % 2 % (0-10); Lymphocytes % 14 % (15-49); Monocytes % (Manual) 5 % (1-12); Platelet Estimate NORMAL (NORMAL); RBC Morphology ABNORM (NORMAL); Segmented Neutrophils % 78 % (38-78)
[2018-01-30] MEDS: ACETAMINOPHEN W/CODEINE #3 1 TABLET PO PRN ×3 (13:48→21:51)
[2018-01-30] MEDS: ONDANSETRON 4 MG/2 ML VIAL IV PRN (15:40)
[2018-01-30] MEDS: MONTELUKAST 10 MG TABLET PO SCH (20:56)
[2018-01-30] MEDS: SENNOSIDES/DOCUSATE SODIUM 1 TAB TABLET PO SCH (20:56)
[2018-01-30] MEDS: ALPRAZolam 0.5 MG TABLET PO SCH (20:56)
[2018-01-30] MEDS: traZODone HCL 50 MG TABLET PO SCH (20:57)
[2018-01-31] MEDS: PIPERACILLIN SODIUM/TAZOBACTAM 3.375 GM in DEXTROSE 5% IN WATER 50 ML IV SCH ×3 (00:29→10:52)
[2018-01-31] MEDS: methylPREDNISolone SOD SUCC 125 MG/2 ML VIAL IV SCH ×4 (00:29→17:59)
[2018-01-31] MEDS: 0.9 % SODIUM CHLORIDE 1,000 ML IV SCH (01:45)
[2018-01-31] MEDS: ACETAMINOPHEN W/CODEINE #3 1 TABLET PO PRN ×4 (02:07→20:59)
[2018-01-31] MEDS: IPRATROPIUM/ALBUTEROL 3 ML AMPUL.NEB NEB SCH ×6 (05:08→23:01)
[2018-01-31] MEDS: 0.9 % SODIUM CHLORIDE 10 ML SYRINGE IV SCH ×3 (05:55→22:26)
[2018-01-31 06:04] LABS: ALT/SGPT 10 U/l (0-40); Albumin 2.5 gm/dL (3.2-5.2); Albumin/Globulin Ratio 1.1 (1.0-2.3); Alkaline Phosphatase 57 U/L (39-117); Bilirubin,Direct < 0.2 mg/dL (0.0-0.3); Blood Urea Nitrogen 11 mg/dl (8-23); Gamma Glutamyl Transpeptidase 53 U/L (5-36); Uric Acid 2.7 mg/dL (2.5-8.0)
[2018-01-31 06:21] LABS: Mean Cell Volume 91.1 fL (80.0-100.0); Mean Corpuscular HGB Conc 33.3 g/dL (31.0-36.0); Mean Corpuscular Hemoglobin 30.4 pg (26.0-34.0); Platelet Count 173 K/mcL (140-440); RBC 2.67 M/mcL (4.00-5.20); Red Cell Distribution Width 17.1 % (11.5-14.5)
[2018-01-31] MEDS: BUDESONIDE 0.5 MG/2 ML AMPUL.NEB NEB SCH ×3 (06:50→19:00)
[2018-01-31 06:56] LABS: Anisocytosis 1+ (NONE SEEN); Band Neutrophils % 2 % (0-10); Lymphocytes % 7 % (15-49); Monocytes % (Manual) 1 % (1-12); Platelet Estimate NORMAL (NORMAL); RBC Morphology ABNORM (NORMAL); Segmented Neutrophils % 90 % (38-78)
[2018-01-31] MEDS ORDERED: POTASSIUM CHLORIDE 40 MEQ in DEXTROSE 5% IN WATER 250 ML IV ONE (09:41)
[2018-01-31] MEDS: ONDANSETRON 4 MG/2 ML VIAL IV PRN ×2 (10:54→18:25)
[2018-01-31] MEDS: VANCOMYCIN 1,000 MG in 0.9 % SODIUM CHLORIDE 250 ML IV SCH (10:54)
[2018-01-31] MEDS: HEPARIN 5,000 UNIT/ML VIAL SQ SCH ×2 (10:54→20:59)
[2018-01-31] MEDS: MULTIVIT,THER IRON,CA,FA & MIN 1 TABLET PO SCH (10:55)
[2018-01-31] MEDS: METOPROLOL TARTRATE 50 MG TABLET PO SCH ×2 (10:55→20:59)
[2018-01-31] MEDS: DOCUSATE SODIUM 100 MG CAPSULE PO SCH ×2 (10:58→21:00)
[2018-01-31] MEDS ORDERED: FUROSEMIDE 40 MG/4 ML VIAL IV ONE (11:08)
[2018-01-31] MEDS: cefTRIAXone 1 GM VIAL IV SCH (11:58)
--- NOTE | 2018-01-31 17:45 | Internal Med Progress Note ---
Medical - PN: Subj Patient information: Note initiated : 01/31/18 at 5:42 pm Service Date, if different from initiated Date: [] Patient: Inessa Torres 77 y/o F admitted on 01/29/18 for fever. Chief Complaint: f/u febrile illness Interval history: 01/29 Ms. Torres is a 77 year old F who presents from [facility] with worsening shortness of breath fever along with mental status change weakness that has evolved over the last 72 hours. Patient has been recovering from a recent hospitalization at [place]. Where and she was treated for bowel perforation and underwent colectomy with colostomy. She was transferred for continued rehabilitation. She was also diagnosed with MRSA pneumonia and was continuing Rocephin/vancomycin at the care center. However over the last few days patient has had worsening symptoms as above including shortness of breath and fatigue ,malaise ,fever and shaking chills. She was transferred to [facility] for further evaluation. Initial workup in the ER was consistent with sepsis with fever and leukopenia however source was unclear. She was atrial fibrillation with rapid ventricular rate and was started on diltiazem. She underwent CT scan angiogram without any evidence of PE. CT abdomen was unremarkable. Hospitalist service consulted in light of above. Patient was started on antibiotic coverage. At the Time of evaluation and remembers at present. Patient was lethargic and weak however was able to provide answers to some of the questions and provide review of systems. She denies increasing ostomy output however her abdominal midline incision has not been feeling well. She denies dysuria, night sweats. She denies headache photophobia or chest pain. 01/30 Significant old records reviewed from [facility]. Patient with a history of pelvic fracture about 2 months ago, had returned to home Early January, abdominal pain and diarrhea-->diagnosed and treated for diverticulitis, returned home Forty-eight hours after returning home, recuttent abdominal pain, nausea, no stool, decreased flatus 01/14-Presents to [place], found to have perforated diverticulitis with pneumoperitoneum and pneumomediastinum (tracking from peritoneum) Transferred to [place], underwent laparotomy, sigmoid resection with sigmoidostomy and Martin's procedure Cultures: Abd: Citrobacter freundii; Klebsiella pneumoniae, Enterococcus faecalis, MRSA , Bacteroides fragilis, Clostridium perfringens Sputum: MRSA She was treated with ceftriaxone, metronidazole (and presumptive vancomycin-as is on SNF med list, but not in D/C summary) At [facility], receiving vancomycin and ceftriaxone, do not see metronidazole. Overnight, significant back pain (chronic low back pain with sciatica, worsened in bed), Tx with ketorolac Codeine listed as an allergy, but she confirms she takes Tylenol #3 at home--> allergy list updated, ketorolac stopped Today feels a little better; coughing, but no sputum; some abdominal pain, but unchanged. Cultures NGTD 01/31 Respiratory viral panel has come back positive for parainfluenza virus 2. Patient feels mildly improved today, though still with cough and malaise. She is relieved however that a likely diagnosis for her presentation has been found and that further MRSA has yet to be cultured. Worked with physical therapy, managed to get up to chair today. Pertinent ROS: Cough with some sputum persists. No further fever. No nausea. No headache. - Constitutional Vitals: Vital Signs Temp Pulse Resp BP Pulse Ox 97.8 F 72 28 H 161/81 99 01/31/18 15:54 01/31/18 15:09 01/31/18 15:54 01/31/18 15:54 01/31/18 15:54 Period Temp Pulse Resp BP Sys/Montiel Pulse Ox Last 24 Hr 97.2 F-98.6 F 61-99 117-161/62-82 87-100 Intake and Output 01/31/18 01/31/18 01/31/18 05:59 13:59 21:59 Intake Total 1050 / 1050 1280 / 1280 450 / 450 Output Total 375 / 375 600 / 600 975 / 975 Balance 675 / 675 680 / 680 -525 / -525 Weight 163 lb 1.6 oz Patient Weight 02/01/18 05:59 Weight 163 lb 1.6 oz Intake & Output: Intake & Output 01/31/18 01/31/18 01/31/18 05:59 13:59 21:59 Intake Total 1050 / 1050 1280 / 1280 450 / 450 Output Total 375 / 375 600 / 600 975 / 975 Balance 675 / 675 680 / 680 -525 / -525 Weight 163 lb 1.6 oz Intake: IV 1050 / 1050 1100 / 1100 270 / 270 Sodium Chloride 0.9% 1,000 ml @ 1000 / 1000 100 mls/hr IV .Q10H [facility] Rx#: [id number] Zosyn 3.375 gm In Dextrose 5% 50 / 50 50 / 50 in Water 50 ml @ 100 mls/hr IV Q6H [facility] Rx#:[id number] Potassium Chloride 40 Meq In 270 / 270 Dextrose 5% in Water 250 ml @ 67.5 mls/hr IV ONCE ONE Rx#: [id number] Oral 180 / 180 180 / 180 Output: Urine Catheter Amount 350 / 350 600 / 600 900 / 900 Stool 25 / 25 75 / 75 Other: Meal Breakfast Lunch Percent of Meal Consumed 50% Refused Feeding Ability Independent Urine Color Dark [place] Straw Urine Odor Strong Normal Stool Color Brown Stool Consistency Liquid Exam: General: Medical - PN: Obj Da - Labs CBC & Chem 7: 01/31/18 03:58 01/31/18 03:58 Labs: Abnormal Lab Results 01/31/18 01/31/18 01/31/18 08:00 03:58 03:58 WBC RBC 2.67 L Hgb 8.1 L Hct 24.3 L RDW 17.1 H [place] % (Auto) Lymph # (Auto) Seg Neutrophils % 90 H Lymphocytes % 7 L Monocytes % (Manual) Nucleated RBCs RBC Morphology Abnorm A Polychromasia Anisocytosis 1+ A ESR D-Dimer Potassium 3.2 L Chloride 109 H Carbon Dioxide 21 L Glucose 181 H Calcium 7.5 L GGT 53 H Lactate Dehydrogenase 338 H C-Reactive Protein NT-Pro-B Natriuret Pep Total Protein 4.8 L Albumin 2.5 L Triglycerides 206 H Urine Protein Amorphous Crystals Hyaline Casts Vancomycin Trough 23.2 H* 01/30/18 01/30/18 01/30/18 12:41 04:00 04:00 WBC 2.1 L 1.4 L RBC 2.84 L 2.83 L Hgb 8.5 L 8.4 L Hct 25.3 L 25.8 L RDW 16.8 H 17.4 H [place] % (Auto) Lymph # (Auto) Seg Neutrophils % 82 H Lymphocytes % 14 L 9 L Monocytes % (Manual) Nucleated RBCs 1 H RBC Morphology Abnorm A Abnorm A Polychromasia Anisocytosis 1+ A 1+ A ESR D-Dimer Potassium Chloride Carbon Dioxide Glucose 124 H Calcium 7.6 L GGT 62 H Lactate Dehydrogenase 270 H C-Reactive Protein NT-Pro-B Natriuret Pep Total Protein 5.1 L Albumin 2.7 L Triglycerides 151 H Urine Protein Amorphous Crystals Hyaline Casts Vancomycin Trough 01/29/18 01/29/18 01/29/18 11:30 10:41 04:52 WBC RBC Hgb Hct RDW [place] % (Auto) Lymph # (Auto) Seg Neutrophils % Lymphocytes % Monocytes % (Manual) 14 H Nucleated RBCs 1 H RBC Morphology Abnorm A Polychromasia 1+ A Anisocytosis 1+ A ESR 91 H D-Dimer Potassium Chloride Carbon Dioxide Glucose Calcium GGT Lactate Dehydrogenase C-Reactive Protein NT-Pro-B Natriuret Pep Total Protein Albumin Triglycerides Urine Protein 30 A Amorphous Crystals Few A Hyaline Casts 4 H Vancomycin Trough 01/29/18 01/29/18 01/29/18 04:34 04:18 04:18 WBC RBC Hgb Hct RDW [place] % (Auto) Lymph # (Auto) Seg Neutrophils % Lymphocytes % Monocytes % (Manual) Nucleated RBCs RBC Morphology Polychromasia Anisocytosis ESR D-Dimer 2.73 H Potassium 3.0 L Chloride Carbon Dioxide Glucose Calcium 8.1 L GGT Lactate Dehydrogenase C-Reactive Protein 1.8 H NT-Pro-B Natriuret Pep 910.4 H Total Protein 5.6 L Albumin Triglycerides Urine Protein Amorphous Crystals Hyaline Casts Vancomycin Trough 01/29/18 04:18 WBC 3.5 L RBC 3.26 L Hgb 9.8 L Hct 29.4 L RDW 17.2 H [place] % (Auto) 21.0 H Lymph # (Auto) 0.7 L Seg Neutrophils % Lymphocytes % Monocytes % (Manual) Nucleated RBCs RBC Morphology Polychromasia Anisocytosis ESR D-Dimer Potassium Chloride Carbon Dioxide Glucose Calcium GGT Lactate Dehydrogenase C-Reactive Protein NT-Pro-B Natriuret Pep Total Protein Albumin Triglycerides Urine Protein Amorphous Crystals Hyaline Casts Vancomycin Trough Meds: Medications Acetaminophen/Codeine Phosphate (Tylenol #3) 1 tab PO Q4-6HP PRN PRN Reason: PAIN LEVEL 3-6 Last Admin: 01/31/18 14:52 Dose: 1 tab Albuterol/Ipratropium (Duoneb) 3 ml NEB Q4HRT [facility] Last Admin: 01/31/18 14:56 Dose: 3 ml Alprazolam (Xanax) 1 mg PO HS [facility] Last Admin: 01/30/18 20:56 Dose: 1 mg Budesonide (Pulmicort) 0.5 mg NEB Q12 [facility] Last Admin: 01/31/18 09:05 Dose: Not Given Ceftriaxone Sodium (Rocephin) 1 gm IV Q24H [facility] Last Admin: 01/31/18 11:58 Dose: 1 gm Docusate Sodium (Colace) 100 mg PO BID [facility] Last Admin: 01/31/18 10:58 Dose: 100 mg Heparin Sodium (Porcine) (Heparin) 5,000 unit SQ Q12 [facility] Last Admin: 01/31/18 10:54 Dose: 5,000 unit Heparin Sodium (Porcine) (Heparin Flush) 2 ml IV Q12 [facility] Last Admin: 01/31/18 10:53 Dose: 2 ml Magnesium Sulfate (Magnesium Sulfate) 2 gm in 50 mls @ 50 mls/hr IV UD PRN PRN Reason: MG = or < 1.7 Last Infusion: 01/30/18 10:00 Dose: Infused Iron Carb/Multivit/Squirt Machine Operator/Folic Acid (Multivitamin W/Minerals) 1 tab PO DAILY [facility] Last Admin: 01/31/18 10:55 Dose: 1 tab Methylprednisolone Sodium Succinate (Solu-Medrol) 62.5 mg IV Q6 [facility] Last Admin: 01/31/18 10:53 Dose: 62.5 mg Metoprolol Tartrate (Lopressor) 50 mg PO BID [facility] Last Admin: 01/31/18 10:55 Dose: 50 mg Montelukast Sodium (Singular) 10 mg PO QPM [facility] Last Admin: 01/30/18 20:56 Dose: 10 mg Ivabradine Hcl [ Corlanor] 5 Mg Tablet 5 mg PO BID [facility] Last Admin: 01/31/18 09:00 Dose: Not Given Ondansetron HCl (Zofran) 4 mg IV Q4-6HP PRN PRN Reason: Nausea And Vomiting Last Admin: 01/31/18 10:54 Dose: 4 mg Potassium Chloride (Klor-Con) 40 meq PO DAILYP PRN PRN Reason: K+ < 3.5 Last Admin: 01/29/18 18:45 Dose: 40 meq Senna/Docusate Sodium (Senna Plus Tablet) 1 tab PO HS [facility] Last Admin: 01/30/18 20:56 Dose: 1 tab Sodium Chloride (Saline Flush) 10 ml IV Q8 [facility] Last Admin: 01/31/18 12:00 Dose: 10 ml Trazodone HCl (Desyrel) 50 mg PO HS [facility] Last Admin: 01/30/18 20:57 Dose: 50 mg Vancomycin HCl (Vancomycin Per Pharmacy) 1 order IV UD [facility] Medical - PN: A/P - Time Spent With Patient Total time spent is greater than 50% in coordination of care (as documented) at patient's floor/unit and/or counseling patient: - Narrative A/P Narrative: 77-year-old with a recent abdominal surgery/MRSA pneumonia undergoing rehabilitation at long term home receiving IV antibiotics decompensated with fever and shortness of breath progressing over the last 3 days Febrile illness at long term facility in the setting of recent peritonitis from perforated diverticulitis. Suspect now secondary to parainfluenza viral infection. This is in setting of status post laparotomy with sigmoid colectomy and Lackey's procedure at [facility], . Complication from her peritonitis or surgical wound. Was on vancomycin and ceftriaxone at SNF, should have fully covered the aerobic pathogens cultured from her abdominal wound. Plan: Continue vancomycin, adjust based upon levels; stop Zosyn and change back to ceftriaxone an monitor for recurrent fever; continue to follow up cultures here. Parainfluenza virus 2 infection. Respiratory viral panel positive. Suspect this explains her presentation and febrile illness at her skilled facility. Plan: Droplet percussions, supportive care Nosocomial pneumonia with MRSA cultured from sputum at [facility]. Continue with vancomycin, changing back to ceftriaxone from Zosyn, will monitor , now lower suspicion of resistant gram negatives. Plan: Continue vancomycin, dosed based upon levels; stop Zosyn and begin ceftriaxone. Atrial fibrillation rapid ventricular response. Patient is converted to sinus rhythm. Home metoprolol resumed. Plan: Continue telemetry, continue metoprolol. Sepsis. She has leukopenia, worsened Thursday morning with a white count 1.4, better at 2.1 on recheck. Now rebounded to 7.1. Suspect secondary to viral illness. Plan: Monitor. Abdominal wound from exploratory laparotomy. Status post colostomy. Plan: Wound care, ostomy care. Anxiety disorder. Stable. Plan: Continue with alprazolam and trazodone. 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 Plan: Continue bronchodilators, supplemental oxygen, incentive spirometer. Full code Prophylaxis heparin Medical - PN: Qual - VTE Deep Vein Thrombosis/Pulmonary Embolism Present on Admission: No
[2018-01-31] MEDS: ALPRAZolam 0.5 MG TABLET PO SCH (20:59)
[2018-01-31] MEDS: traZODone HCL 50 MG TABLET PO SCH (21:00)
[2018-01-31] MEDS: SENNOSIDES/DOCUSATE SODIUM 1 TAB TABLET PO SCH (21:00)
[2018-01-31] MEDS: MONTELUKAST 10 MG TABLET PO SCH (21:00)
[2018-02-01] MEDS: ACETAMINOPHEN W/CODEINE #3 1 TABLET PO PRN ×4 (01:01→22:19)
[2018-02-01] MEDS: methylPREDNISolone SOD SUCC 125 MG/2 ML VIAL IV SCH ×4 (01:02→18:13)
[2018-02-01] MEDS: IPRATROPIUM/ALBUTEROL 3 ML AMPUL.NEB NEB SCH ×5 (03:02→19:11)
[2018-02-01 05:45] LABS: Mean Cell Volume 90.7 fL (80.0-100.0); Mean Corpuscular HGB Conc 33.6 g/dL (31.0-36.0); Mean Corpuscular Hemoglobin 30.5 pg (26.0-34.0); Platelet Count 163 K/mcL (140-440); RBC 2.74 M/mcL (4.00-5.20); Red Cell Distribution Width 17.3 % (11.5-14.5)
[2018-02-01] MEDS: 0.9 % SODIUM CHLORIDE 10 ML SYRINGE IV SCH ×3 (05:58→20:54)
[2018-02-01 06:03] LABS: ALT/SGPT 11 U/l (0-40); Albumin 2.9 gm/dL (3.2-5.2); Albumin/Globulin Ratio 1.2 (1.0-2.3); Alkaline Phosphatase 55 U/L (39-117); Bilirubin,Direct < 0.2 mg/dL (0.0-0.3); Blood Urea Nitrogen 14 mg/dl (8-23); Gamma Glutamyl Transpeptidase 53 U/L (5-36); Uric Acid 2.8 mg/dL (2.5-8.0)
[2018-02-01 06:16] LABS: Vancomycin,Random 17.3 ug/mL
[2018-02-01 06:34] LABS: Anisocytosis 1+ (NONE SEEN); Lymphocytes % 5 % (15-49); Monocytes % (Manual) 6 % (1-12); Platelet Estimate NORMAL (NORMAL); RBC Morphology ABNORM (NORMAL); Segmented Neutrophils % 89 % (38-78)
[2018-02-01] MEDS: BUDESONIDE 0.5 MG/2 ML AMPUL.NEB NEB SCH (07:41)
[2018-02-01] MEDS: POTASSIUM CHLORIDE 20 MEQ PACKET PO PRN (08:17)
[2018-02-01] MEDS: cefTRIAXone 1 GM VIAL IV SCH (08:17)
[2018-02-01] MEDS: METOPROLOL TARTRATE 50 MG TABLET PO SCH ×2 (08:18→20:52)
[2018-02-01] MEDS: MULTIVIT,THER IRON,CA,FA & MIN 1 TABLET PO SCH (08:18)
[2018-02-01] MEDS: HEPARIN 5,000 UNIT/ML VIAL SQ SCH ×2 (08:18→20:52)
[2018-02-01] MEDS: DOCUSATE SODIUM 100 MG CAPSULE PO SCH ×2 (08:18→20:53)
[2018-02-01] MEDS: VANCOMYCIN 1,000 MG in 0.9 % SODIUM CHLORIDE 250 ML IV SCH (08:31)
[2018-02-01] MEDS: ONDANSETRON 4 MG/2 ML VIAL IV PRN (09:02)
[2018-02-01] MEDS ORDERED: POTASSIUM PHOSPHATE 40 MEQ in DEXTROSE 5% IN WATER 500 ML IV ONE (12:30)
[2018-02-01] MEDS: ALPRAZolam 0.5 MG TABLET PO PRN ×2 (12:36→20:52)
[2018-02-01] MEDS ORDERED: ALBUTEROL SULFATE 2.5 MG/3 ML NEBULIZER NEB PRN (15:15)
[2018-02-01] MEDS ORDERED: FUROSEMIDE 40 MG/4 ML VIAL IV ONE (15:15)
--- NOTE | 2018-02-01 15:42 | XRay Report ---
CLINICAL INFORMATION: Dyspnea COMPARISON: 01/29/2018 FINDINGS: Mild cardiomegaly is unchanged. Left PICC line tip overlies the SVC right atrial junction. The mediastinum and pulmonary vessels are normal. Mild bibasilar atelectasis thousand worsened - more prominent on the left side. Chronic elevation right diaphragm seen as before IMPRESSION: Mild bibasilar atelectasis. Interpreted and Authenticated by: Roland Simmons 02/01/18
--- NOTE | 2018-02-01 20:10 | Internal Med Progress Note ---
Medical - PN: Subj Patient information: Note initiated : 02/01/18 at 8:08 pm Service Date, if different from initiated Date: [] Patient: Inessa Torres a 77 y/o F admitted on 01/29/18 for Fever/Nosocomial Pneumonia, Afib w/ RVR, Sepsis. Chief Complaint: Follow-up parainfluenza infection Interval history: 01/29 Ms. Torres is a 77 year old F who presents from [facility] with worsening shortness of breath fever along with mental status change weakness that has evolved over the last 72 hours. Patient has been recovering from a recent hospitalization at [place]. Where and she was treated for bowel perforation and underwent colectomy with colostomy. She was transferred for continued rehabilitation. She was also diagnosed with MRSA pneumonia and was continuing Rocephin/vancomycin at the care center. However over the last few days patient has had worsening symptoms as above including shortness of breath and fatigue ,malaise ,fever and shaking chills. She was transferred to [facility] for further evaluation. Initial workup in the ER was consistent with sepsis with fever and leukopenia however source was unclear. She was atrial fibrillation with rapid ventricular rate and was started on diltiazem. She underwent CT scan angiogram without any evidence of PE. CT abdomen was unremarkable. Hospitalist service consulted in light of above. Patient was started on antibiotic coverage. At the Time of evaluation and remembers at present. Patient was lethargic and weak however was able to provide answers to some of the questions and provide review of systems. She denies increasing ostomy output however her abdominal midline incision has not been feeling well. She denies dysuria, night sweats. She denies headache photophobia or chest pain. 01/30 Significant old records reviewed from [facility]. Patient with a history of pelvic fracture about 2 months ago, had returned to home Early January, abdominal pain and diarrhea-->diagnosed and treated for diverticulitis, returned home Forty-eight hours after returning home, recuttent abdominal pain, nausea, no stool, decreased flatus 01/14-Presents to [place], found to have perforated diverticulitis with pneumoperitoneum and pneumomediastinum (tracking from peritoneum) Transferred to [place], underwent laparotomy, sigmoid resection with sigmoidostomy and Martin's procedure Cultures: Abd: Citrobacter freundii; Klebsiella pneumoniae, Enterococcus faecalis, MRSA , Bacteroides fragilis, Clostridium perfringens Sputum: MRSA She was treated with ceftriaxone, metronidazole (and presumptive vancomycin-as is on SNF med list, but not in D/C summary) At [facility], receiving vancomycin and ceftriaxone, do not see metronidazole. Overnight, significant back pain (chronic low back pain with sciatica, worsened in bed), Tx with ketorolac Codeine listed as an allergy, but she confirms she takes Tylenol #3 at home--> allergy list updated, ketorolac stopped Today feels a little better; coughing, but no sputum; some abdominal pain, but unchanged. Cultures NGTD 01/31 Respiratory viral panel has come back positive for parainfluenza virus 2. Patient feels mildly improved today, though still with cough and malaise. She is relieved however that a likely diagnosis for her presentation has been found and that further MRSA has yet to be cultured. Worked with physical therapy, managed to get up to chair today. 02/01 Continues to have significant dyspnea at times. Cough becoming more productive , some difficulty mobilizing secretions. Having significant anxiety, worsened by dyspnea. Receive furosemide yesterday. Further dose ordered today. Pertinent ROS: Positive for dyspnea, anxiety. Negative for nausea, vomiting, abdominal pain. - Constitutional Vitals: Vital Signs Temp Pulse Resp BP Pulse Ox 97.3 F 77 23 H 161/78 95 02/01/18 19:54 02/01/18 19:05 02/01/18 19:54 02/01/18 19:54 02/01/18 19:54 Period Temp Pulse Resp BP Sys/Montiel Pulse Ox Last 24 Hr 97.3 F-98.9 F 67-83 18-32 145-161/78-98 95-100 Intake and Output 02/01/18 02/01/18 02/01/18 05:59 13:59 21:59 Intake Total 250 / 938 995.5600 / 869.0909 Output Total 300 / 300 425 / 425 Balance -300 / -300 250 / 003 755.6122 / 444.0909 Weight 174 lb 12.8 oz Patient Weight 02/02/18 05:59 Weight 174 lb 12.8 oz Intake & Output: Intake & Output 02/01/18 02/01/18 02/01/18 05:59 13:59 21:59 Intake Total 250 / 787 613.3902 / 869.0909 Output Total 300 / 300 425 / 425 Balance -300 / -300 250 / 334 536.7094 / 444.0909 Weight 174 lb 12.8 oz Intake: IV 250 / 716 324.2020 / 509.0909 Potassium Phosphate 40 Meq In 509.0909 / 509.0909 Dextrose 5% in Water 500 ml @ 127.273 mls/hr IV ONCE ONE Rx#: [id number] Vancomycin 1,000 mg In Sodium 250 / 250 Chloride 0.9% 250 ml @ 250 mls/ hr IV Q48H [facility] Rx#:[id number] Oral 360 / 360 Output: Urine Catheter Amount 300 / 300 425 / 425 Other: Urine Appearance Clear Clear Uretheral (Powers) Clear Urine Color Bright Yellow Bright Yellow Dark Yellow Dark Yellow Uretheral (Powers) Bright Yellow Urine Odor Normal Normal Uretheral (Powers) Normal Stool Color Brown Stool Consistency Liquid Exam: General: Anxious, mildly uncomfortable Chest: Scattered rhonchi throughout, respirations mild to moderately labored Cardiovascular: Regular Abdomen: Soft, nontender Neuro: Alert, oriented, mood is anxious, moves all extremities equally Medical - PN: Obj Da - Labs CBC & Chem 7: 02/01/18 03:46 02/01/18 03:46 Labs: Abnormal Lab Results 02/01/18 02/01/18 01/31/18 03:46 03:46 08:00 WBC RBC 2.74 L Hgb 8.4 L Hct 24.8 L RDW 17.3 H Seg Neutrophils % 89 H Lymphocytes % 5 L Nucleated RBCs RBC Morphology Abnorm A Anisocytosis 1+ A Potassium Chloride Carbon Dioxide Glucose 119 H Calcium 8.0 L Phosphorus 2.1 L GGT 53 H Lactate Dehydrogenase 321 H Total Protein 5.4 L Albumin 2.9 L Triglycerides 235 H Vancomycin Trough 23.2 H* 01/31/18 01/31/18 01/30/18 03:58 03:58 12:41 WBC 2.1 L RBC 2.67 L 2.84 L Hgb 8.1 L 8.5 L Hct 24.3 L 25.3 L RDW 17.1 H 16.8 H Seg Neutrophils % 90 H Lymphocytes % 7 L 14 L Nucleated RBCs 1 H RBC Morphology Abnorm A Abnorm A Anisocytosis 1+ A 1+ A Potassium 3.2 L Chloride 109 H Carbon Dioxide 21 L Glucose 181 H Calcium 7.5 L Phosphorus GGT 53 H Lactate Dehydrogenase 338 H Total Protein 4.8 L Albumin 2.5 L Triglycerides 206 H Vancomycin Trough 01/30/18 01/30/18 04:00 04:00 WBC 1.4 L RBC 2.83 L Hgb 8.4 L Hct 25.8 L RDW 17.4 H Seg Neutrophils % 82 H Lymphocytes % 9 L Nucleated RBCs RBC Morphology Abnorm A Anisocytosis 1+ A Potassium Chloride Carbon Dioxide Glucose 124 H Calcium 7.6 L Phosphorus GGT 62 H Lactate Dehydrogenase 270 H Total Protein 5.1 L Albumin 2.7 L Triglycerides 151 H Vancomycin Trough Meds: Medications Acetaminophen/Codeine Phosphate (Tylenol #3) 1 tab PO Q4-6HP PRN PRN Reason: PAIN LEVEL 3-6 Last Admin: 02/01/18 17:26 Dose: 1 tab Albuterol Sulfate (Ventolin) 2.5 mg NEB Q3HP PRN PRN Reason: Shortness Of Breath Last Admin: 02/01/18 15:41 Dose: 2.5 mg Albuterol/Ipratropium (Duoneb) 3 ml NEB Q6HRT [facility] Last Admin: 02/01/18 19:11 Dose: 3 ml Alprazolam (Xanax) 1 mg PO HS [facility] Last Admin: 01/31/18 20:59 Dose: 1 mg Alprazolam (Xanax) 0.5 mg PO TIDP PRN PRN Reason: Anxiety Last Admin: 02/01/18 12:36 Dose: 0.5 mg Ceftriaxone Sodium (Rocephin) 1 gm IV Q24H [facility] Last Admin: 02/01/18 08:17 Dose: 1 gm Docusate Sodium (Colace) 100 mg PO BID [facility] Last Admin: 02/01/18 08:18 Dose: 100 mg Guaifenesin (Robitussin Dm) 5 ml PO Q4HP PRN PRN Reason: Cough Heparin Sodium (Porcine) (Heparin) 5,000 unit SQ Q12 [facility] Last Admin: 02/01/18 08:18 Dose: 5,000 unit Heparin Sodium (Porcine) (Heparin Flush) 2 ml IV Q12 [facility] Last Admin: 02/01/18 08:17 Dose: 2 ml Magnesium Sulfate (Magnesium Sulfate) 2 gm in 50 mls @ 50 mls/hr IV UD PRN PRN Reason: MG = or < 1.7 Last Infusion: 01/30/18 10:00 Dose: Infused Vancomycin HCl 1,000 mg/ (Sodium Chloride) 250 mls @ 250 mls/hr IV Q48H [facility] Last Infusion: 02/01/18 09:31 Dose: Infused Iron Carb/Multivit/[place]/Folic Acid (Multivitamin W/Minerals) 1 tab PO DAILY [facility] Last Admin: 02/01/18 08:18 Dose: 1 tab Methylprednisolone Sodium Succinate (Solu-Medrol) 62.5 mg IV Q6 [facility] Last Admin: 02/01/18 18:13 Dose: 62.5 mg Metoprolol Tartrate (Lopressor) 50 mg PO BID [facility] Last Admin: 02/01/18 08:18 Dose: 50 mg Montelukast Sodium (Singular) 10 mg PO QPM [facility] Last Admin: 01/31/18 21:00 Dose: 10 mg Ivabradine Hcl [ Corlanor] 5 Mg Tablet 5 mg PO BID [facility] Last Admin: 02/01/18 08:10 Dose: Not Given Ondansetron HCl (Zofran) 4 mg IV Q4-6HP PRN PRN Reason: Nausea And Vomiting Last Admin: 02/01/18 09:02 Dose: 4 mg Potassium Chloride (Klor-Con) 40 meq PO DAILYP PRN PRN Reason: K+ < 3.5 Last Admin: 02/01/18 08:17 Dose: 40 meq Senna/Docusate Sodium (Senna Plus Tablet) 1 tab PO HS [facility] Last Admin: 01/31/18 21:00 Dose: 1 tab Sodium Chloride (Saline Flush) 10 ml IV Q8 [facility] Last Admin: 02/01/18 12:39 Dose: 10 ml Trazodone HCl (Desyrel) 50 mg PO HS [facility] Last Admin: 01/31/18 21:00 Dose: 50 mg Vancomycin HCl (Vancomycin Per Pharmacy) 1 order IV UD [facility] Medical - PN: A/P - Time Spent With Patient Total time spent is greater than 50% in coordination of care (as documented) at patient's floor/unit and/or counseling patient: - Narrative A/P Narrative: 77-year-old with a recent abdominal surgery/MRSA pneumonia undergoing rehabilitation at intermediate home receiving IV antibiotics decompensated with fever and shortness of breath progressing over the last 3 days Febrile illness at intermediate facility in the setting of recent peritonitis from perforated diverticulitis. Suspect now secondary to parainfluenza viral infection. This is in setting of status post laparotomy with sigmoid colectomy and Lackey's procedure at [facility], . Complication from her peritonitis or surgical wound. Was on vancomycin and ceftriaxone at SNF, should have fully covered the aerobic pathogens cultured from her abdominal wound. Plan: Continue vancomycin, adjust based upon levels; stop Zosyn and change back to ceftriaxone an monitor for recurrent fever; continue to follow up cultures here. Parainfluenza virus 2 infection. Respiratory viral panel positive. Suspect this explains her presentation and febrile illness at her skilled facility. Plan: Droplet percussions, supportive care; flutter valve to help mobilize secretions, supplemental oxygen, bronchodilators Nosocomial pneumonia with MRSA cultured from sputum at [facility]. Continue with vancomycin, changing back to ceftriaxone from Zosyn, will monitor , now lower suspicion of resistant gram negatives. Plan: Continue vancomycin, dosed based upon levels; stop Zosyn and begin ceftriaxone. Atrial fibrillation rapid ventricular response. Patient is converted to sinus rhythm. Home metoprolol resumed. Plan: Continue telemetry, continue metoprolol. Sepsis. She has leukopenia, worsened Thursday morning with a white count 1.4, better at 2.1 on recheck. Now normalized. Suspect secondary to viral illness. Plan: Monitor. Abdominal wound from exploratory laparotomy. Status post colostomy. Plan: Wound care, ostomy care. Anxiety disorder. Worsened with dyspnea. Plan: Continue with alprazolam and trazodone, add when necessary alprazolam. 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 Plan: Continue bronchodilators, supplemental oxygen, incentive spirometer. Full code Prophylaxis heparin Medical - PN: Qual - VTE Deep Vein Thrombosis/Pulmonary Embolism Present on Admission: No
[2018-02-01] MEDS: guaiFENesin/DEXTROMETHORPHAN ORAL SOL PO PRN (20:51)
[2018-02-01] MEDS: ALPRAZolam 0.5 MG TABLET PO SCH (20:51)
[2018-02-01] MEDS: traZODone HCL 50 MG TABLET PO SCH (20:52)
[2018-02-01] MEDS: MONTELUKAST 10 MG TABLET PO SCH (20:52)
[2018-02-01] MEDS: SENNOSIDES/DOCUSATE SODIUM 1 TAB TABLET PO SCH (20:52)
[2018-02-02] MEDS: methylPREDNISolone SOD SUCC 125 MG/2 ML VIAL IV SCH ×4 (01:32→18:03)
[2018-02-02] MEDS: IPRATROPIUM/ALBUTEROL 3 ML AMPUL.NEB NEB SCH ×4 (01:33→19:22)
[2018-02-02] MEDS ORDERED: METOPROLOL TARTRATE 5 MG/5 ML VIAL IV PRN (02:47)
[2018-02-02] MEDS ORDERED: METOPROLOL TARTRATE 5 MG/5 ML VIAL IV ONE (03:00)
[2018-02-02] MEDS: ACETAMINOPHEN W/CODEINE #3 1 TABLET PO PRN ×3 (05:44→18:04)
[2018-02-02] MEDS: guaiFENesin/DEXTROMETHORPHAN ORAL SOL PO PRN ×3 (05:44→18:05)
[2018-02-02] MEDS: 0.9 % SODIUM CHLORIDE 10 ML SYRINGE IV SCH ×3 (05:47→20:45)
[2018-02-02 06:29] LABS: Mean Cell Volume 90.4 fL (80.0-100.0); Mean Corpuscular HGB Conc 32.6 g/dL (31.0-36.0); Mean Corpuscular Hemoglobin 29.5 pg (26.0-34.0); Platelet Count 155 K/mcL (140-440); RBC 2.81 M/mcL (4.00-5.20); Red Cell Distribution Width 16.9 % (11.5-14.5)
[2018-02-02 06:57] LABS: ALT/SGPT 13 U/l (0-40); Albumin 2.9 gm/dL (3.2-5.2); Albumin/Globulin Ratio 1.2 (1.0-2.3); Alkaline Phosphatase 53 U/L (39-117); Bilirubin,Direct < 0.2 mg/dL (0.0-0.3); Blood Urea Nitrogen 12 mg/dl (8-23); Gamma Glutamyl Transpeptidase 60 U/L (5-36); Uric Acid 2.5 mg/dL (2.5-8.0)
[2018-02-02] MEDS: HEPARIN 5,000 UNIT/ML VIAL SQ SCH ×2 (07:52→20:29)
[2018-02-02] MEDS: ONDANSETRON 4 MG/2 ML VIAL IV PRN (07:52)
[2018-02-02] MEDS: MULTIVIT,THER IRON,CA,FA & MIN 1 TABLET PO SCH (07:53)
[2018-02-02] MEDS: DOCUSATE SODIUM 100 MG CAPSULE PO SCH ×2 (07:53→20:33)
[2018-02-02] MEDS: ALPRAZolam 0.5 MG TABLET PO PRN ×2 (07:53→18:04)
[2018-02-02] MEDS: METOPROLOL TARTRATE 50 MG TABLET PO SCH ×2 (07:53→20:28)
[2018-02-02] MEDS: cefTRIAXone 1 GM VIAL IV SCH (07:55)
[2018-02-02 08:06] LABS: Anisocytosis 1+ (NONE SEEN); Basophilic Stippling FEW (NONE SEEN); Lymphocytes % 8 % (15-49); Monocytes % (Manual) 7 % (1-12); Platelet Estimate NORMAL (NORMAL); RBC Morphology ABNORM (NORMAL); Segmented Neutrophils % 85 % (38-78)
[2018-02-02] MEDS ORDERED: ALTEPLASE 2 MG VIAL IV ONE (08:28)
[2018-02-02] MEDS ORDERED: FUROSEMIDE 40 MG/4 ML VIAL IV ONE (09:38)
[2018-02-02] MEDS ORDERED: POTASSIUM PHOSPHATE 40 MEQ in DEXTROSE 5% IN WATER 500 ML IV ONE (10:00)
[2018-02-02] MEDS: traZODone HCL 50 MG TABLET PO SCH (20:28)
[2018-02-02] MEDS: ALPRAZolam 0.5 MG TABLET PO SCH (20:29)
[2018-02-02] MEDS: MONTELUKAST 10 MG TABLET PO SCH (20:29)
[2018-02-02] MEDS: SENNOSIDES/DOCUSATE SODIUM 1 TAB TABLET PO SCH (20:29)
--- NOTE | 2018-02-02 20:34 | Internal Med Progress Note ---
Medical - PN: Subj Patient information: Note initiated : 02/02/18 at 8:32 pm Service Date, if different from initiated Date: [] Patient: Inessa Torres 77 y/o F admitted on 01/29/18 for Fever/Nosocomial Pneumonia, Afib w/ RVR, Sepsis. Chief Complaint: f/u Afib, parainfluenza virus Interval history: 01/29 Ms. Torres is a 77 year old F who presents from the [facility] with worsening shortness of breath fever along with mental status change weakness that has evolved over the last 72 hours. Patient has been recovering from a recent hospitalization at [place]. Where and she was treated for bowel perforation and underwent colectomy with colostomy. She was transferred for continued rehabilitation. She was also diagnosed with MRSA pneumonia and was continuing Rocephin/vancomycin at the care center. However over the last few days patient has had worsening symptoms as above including shortness of breath and fatigue ,malaise ,fever and shaking chills. She was transferred to [facility] for further evaluation. Initial workup in the ER was consistent with sepsis with fever and leukopenia however source was unclear. She was atrial fibrillation with rapid ventricular rate and was started on diltiazem. She underwent CT scan angiogram without any evidence of PE. CT abdomen was unremarkable. Hospitalist service consulted in light of above. Patient was started on antibiotic coverage. At the Time of evaluation and remembers at present. Patient was lethargic and weak however was able to provide answers to some of the questions and provide review of systems. She denies increasing ostomy output however her abdominal midline incision has not been feeling well. She denies dysuria, night sweats. She denies headache photophobia or chest pain. 01/30 Significant old records reviewed from [facility]. Patient with a history of pelvic fracture about 2 months ago, had returned to home Early January, abdominal pain and diarrhea-->diagnosed and treated for diverticulitis, returned home Forty-eight hours after returning home, recuttent abdominal pain, nausea, no stool, decreased flatus 01/14-Presents to [facility], found to have perforated diverticulitis with pneumoperitoneum and pneumomediastinum (tracking from peritoneum) Transferred to [place], underwent laparotomy, sigmoid resection with sigmoidostomy and Martin's procedure Cultures: Abd: Citrobacter freundii; Klebsiella pneumoniae, Enterococcus faecalis, MRSA , Bacteroides fragilis, Clostridium perfringens Sputum: MRSA She was treated with ceftriaxone, metronidazole (and presumptive vancomycin-as is on SNF med list, but not in D/C summary) At [facility], receiving vancomycin and ceftriaxone, do not see metronidazole. Overnight, significant back pain (chronic low back pain with sciatica, worsened in bed), Tx with ketorolac Codeine listed as an allergy, but she confirms she takes Tylenol #3 at home--> allergy list updated, ketorolac stopped Today feels a little better; coughing, but no sputum; some abdominal pain, but unchanged. Cultures NGTD 01/31 Respiratory viral panel has come back positive for parainfluenza virus 2. Patient feels mildly improved today, though still with cough and malaise. She is relieved however that a likely diagnosis for her presentation has been found and that further MRSA has yet to be cultured. Worked with physical therapy, managed to get up to chair today. 02/01 Continues to have significant dyspnea at times. Cough becoming more productive , some difficulty mobilizing secretions. Having significant anxiety, worsened by dyspnea. Receive furosemide yesterday. Further dose ordered today. 02/02 Slowly improving, though still a significant fatigue. Diuresis has improved her dyspnea considerably. No chest pain, no nausea or vomiting. Adri removed from her abdominal incision yesterday. Had run of atrial fibrillation RVR overnight, received IV metoprolol, subsequent cardioverted. - Constitutional Vitals: Vital Signs Temp Pulse Resp BP Pulse Ox 98.1 F 81 20 154/67 99 02/02/18 16:39 02/02/18 19:22 02/02/18 20:12 02/02/18 19:00 02/02/18 19:22 Period Temp Pulse Resp BP Sys/Montiel Pulse Ox Last 24 Hr 97.2 F-98.2 F 68-134 16-29 144-171/67-87 93-99 Intake and Output 02/02/18 02/02/18 02/02/18 05:59 13:59 21:59 Intake Total 240 / 855 774.5155 / 809.0909 Output Total 900 / 900 1850 / 1850 Balance -900 / -900 240 / 240 -1040.9091 / -1040.9091 Intake & Output: Intake & Output 02/02/18 02/02/18 02/02/18 05:59 13:59 21:59 Intake Total 240 / 986 873.7729 / 809.0909 Output Total 900 / 900 1850 / 1850 Balance -900 / -900 240 / 240 -1040.9091 / -1040.9091 Intake: IV 509.0909 / 509.0909 Potassium Phosphate 40 Meq In 509.0909 / 509.0909 Dextrose 5% in Water 500 ml @ 127.273 mls/hr IV ONCE ONE Rx#: [id number] Oral 240 / 240 300 / 300 Output: Urine Catheter Amount 750 / 750 1500 / 1500 Stool 150 / 150 350 / 350 Other: Meal Breakfast Percent of Meal Consumed 100% Feeding Ability Assist with Tray Set Up Urine Appearance Clear Uretheral (Powers) Clear Urine Color Dark Yellow Uretheral (Powers) Dark Yellow Urine Odor Normal Uretheral (Powers) Normal Stool Color Brown Stool Consistency Soft Exam: General: In bed in no acute distress Chest: Scattered rhonchi throughout both lung [place], no wheezes Cardiovascular: Distant, partially obscured by lung sounds, regular, no wheezes appreciated Abdomen: Soft, nontender, midline incision intact, dressing in place and a few areas of superficial breakdown Neuro: Alert, oriented, generally weak. Medical - PN: Obj Da - Labs CBC & Chem 7: 02/02/18 03:30 02/02/18 03:30 Labs: Abnormal Lab Results 02/02/18 02/02/18 02/01/18 03:30 03:30 03:46 RBC 2.81 L Hgb 8.3 L Hct 25.5 L RDW 16.9 H Seg Neutrophils % 85 H Lymphocytes % 8 L Nucleated RBCs 1 H RBC Morphology Abnorm A Polychromasia Few A Basophilic Stippling Few A Anisocytosis 1+ A Potassium Chloride Carbon Dioxide Glucose 119 H 119 H Calcium 7.9 L 8.0 L Phosphorus 2.3 L 2.1 L GGT 60 H 53 H Lactate Dehydrogenase 349 H 321 H Total Protein 5.3 L 5.4 L Albumin 2.9 L 2.9 L Triglycerides 272 H 235 H Vancomycin Trough 02/01/18 01/31/18 01/31/18 03:46 08:00 03:58 RBC 2.74 L Hgb 8.4 L Hct 24.8 L RDW 17.3 H Seg Neutrophils % 89 H Lymphocytes % 5 L Nucleated RBCs RBC Morphology Abnorm A Polychromasia Basophilic Stippling Anisocytosis 1+ A Potassium 3.2 L Chloride 109 H Carbon Dioxide 21 L Glucose 181 H Calcium 7.5 L Phosphorus GGT 53 H Lactate Dehydrogenase 338 H Total Protein 4.8 L Albumin 2.5 L Triglycerides 206 H Vancomycin Trough 23.2 H* 01/31/18 03:58 RBC 2.67 L Hgb 8.1 L Hct 24.3 L RDW 17.1 H Seg Neutrophils % 90 H Lymphocytes % 7 L Nucleated RBCs RBC Morphology Abnorm A Polychromasia Basophilic Stippling Anisocytosis 1+ A Potassium Chloride Carbon Dioxide Glucose Calcium Phosphorus GGT Lactate Dehydrogenase Total Protein Albumin Triglycerides Vancomycin Trough Meds: Medications Acetaminophen/Codeine Phosphate (Tylenol #3) 1 tab PO Q4-6HP PRN PRN Reason: PAIN LEVEL 3-6 Last Admin: 02/02/18 18:04 Dose: 1 tab Albuterol Sulfate (Ventolin) 2.5 mg NEB Q3HP PRN PRN Reason: Shortness Of Breath Last Admin: 02/01/18 15:41 Dose: 2.5 mg Albuterol/Ipratropium (Duoneb) 3 ml NEB Q6HRT [facility] Last Admin: 02/02/18 19:22 Dose: 3 ml Alprazolam (Xanax) 1 mg PO HS [facility] Last Admin: 02/02/18 20:29 Dose: 1 mg Alprazolam (Xanax) 0.5 mg PO TIDP PRN PRN Reason: Anxiety Last Admin: 02/02/18 18:04 Dose: 0.5 mg Ceftriaxone Sodium (Rocephin) 1 gm IV Q24H [facility] Last Admin: 02/02/18 07:55 Dose: 1 gm Docusate Sodium (Colace) 100 mg PO BID [facility] Last Admin: 02/02/18 07:53 Dose: 100 mg Guaifenesin (Robitussin Dm) 5 ml PO Q4HP PRN PRN Reason: Cough Last Admin: 02/02/18 18:05 Dose: 5 ml Heparin Sodium (Porcine) (Heparin) 5,000 unit SQ Q12 [facility] Last Admin: 02/02/18 20:29 Dose: 5,000 unit Heparin Sodium (Porcine) (Heparin Flush) 2 ml IV Q12 [facility] Last Admin: 02/02/18 20:29 Dose: 2 ml Magnesium Sulfate (Magnesium Sulfate) 2 gm in 50 mls @ 50 mls/hr IV UD PRN PRN Reason: MG = or < 1.7 Last Infusion: 01/30/18 10:00 Dose: Infused Vancomycin HCl 1,000 mg/ (Sodium Chloride) 250 mls @ 250 mls/hr IV Q48H [facility] Last Infusion: 02/01/18 09:31 Dose: Infused Iron Carb/Multivit/[place]/Folic Acid (Multivitamin W/Minerals) 1 tab PO DAILY [facility] Last Admin: 02/02/18 07:53 Dose: 1 tab Methylprednisolone Sodium Succinate (Solu-Medrol) 62.5 mg IV Q6 [facility] Last Admin: 02/02/18 18:03 Dose: 62.5 mg Metoprolol Tartrate (Lopressor) 50 mg PO BID [facility] Last Admin: 02/02/18 20:28 Dose: 50 mg Metoprolol Tartrate (Lopressor) 5 mg IV Q6HP PRN PRN Reason: Tachyarrhythmias Last Admin: 02/02/18 03:04 Dose: 5 mg Montelukast Sodium (Singular) 10 mg PO QPM [facility] Last Admin: 02/02/18 20:29 Dose: 10 mg Ondansetron HCl (Zofran) 4 mg IV Q4-6HP PRN PRN Reason: Nausea And Vomiting Last Admin: 02/02/18 07:52 Dose: 4 mg Ivabradine Hcl [ Corlanor] 5 Mg Tablet 1 dose PO BID [facility] Last Admin: 02/02/18 15:00 Dose: 1 dose Potassium Chloride (Klor-Con) 40 meq PO DAILYP PRN PRN Reason: K+ < 3.5 Last Admin: 02/01/18 08:17 Dose: 40 meq Senna/Docusate Sodium (Senna Plus Tablet) 1 tab PO HS [facility] Last Admin: 02/02/18 20:29 Dose: 1 tab Sodium Chloride (Saline Flush) 10 ml IV Q8 [facility] Last Admin: 02/02/18 13:33 Dose: Not Given Trazodone HCl (Desyrel) 50 mg PO [facility] Last Admin: 02/02/18 20:28 Dose: 50 mg Vancomycin HCl (Vancomycin Per Pharmacy) 1 order IV [facility] Medical - PN: A/P - Narrative A/P Narrative: 77-year-old with a recent abdominal surgery/MRSA pneumonia undergoing rehabilitation [facility] receiving IV antibiotics decompensated with fever and shortness of breath progressing over the last 3 days Febrile illness at [facility]way facility in the setting of recent peritonitis from perforated diverticulitis. Suspect now secondary to parainfluenza viral infection, and not the presence of a resistant gram- negative nosocomial infection. Parainfluenza virus 2 infection. Respiratory viral panel positive. Suspect this explains her presentation and febrile illness at her skilled facility. Plan: Droplet percussions, supportive care; flutter valve to help mobilize secretions, supplemental oxygen, bronchodilators, diurese Recent ruptured diverticulitis with pneumoperitoneum and pneumomediastinum, status post laparotomy with sigmoid colectomy and Lackey's procedure at [facility], . Complication from her peritonitis or surgical wound. Was on vancomycin and ceftriaxone at SNF, should have fully covered the aerobic pathogens cultured from her abdominal wound. Plan: Continue vancomycin, adjust based upon levels; changed back to ceftriaxone (from Zosyn) continue to monitor for recurrent fever; continue to follow up cultures here. Nosocomial pneumonia with MRSA cultured from sputum at [facility]. Continue with vancomycin, changed back to ceftriaxone from Zosyn, will monitor, now lower suspicion of resistant gram negatives. Plan: Continue vancomycin, dosed based upon levels; continue ceftriaxone. Atrial fibrillation rapid ventricular response. Patient is converted to sinus rhythm. Home metoprolol resumed. Also now on home ivabradine (brought in). Plan: Continue telemetry, continue metoprolol and ivabradine. Sepsis. She had leukopenia, worsened Thursday morning with a white count 1.4, better at 2.1 on recheck. Now normalized. Suspect secondary to viral illness. Plan: Monitor. Abdominal wound from exploratory laparotomy. Status post colostomy. Plan: Wound care, ostomy care. Anxiety disorder. Worsened with dyspnea. Improved Thursday. Plan: Continue with alprazolam and trazodone, added PRN alprazolam. 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 Plan: Continue bronchodilators, supplemental oxygen, incentive spirometer. Full code Prophylaxis heparin Medical - PN: Qual - VTE Deep Vein Thrombosis/Pulmonary Embolism Present on Admission: No
[2018-02-03] MEDS: guaiFENesin/DEXTROMETHORPHAN ORAL SOL PO PRN (00:25)
[2018-02-03] MEDS: ACETAMINOPHEN W/CODEINE #3 1 TABLET PO PRN ×2 (00:25→19:19)
[2018-02-03] MEDS: methylPREDNISolone SOD SUCC 125 MG/2 ML VIAL IV SCH ×4 (00:28→18:28)
[2018-02-03] MEDS: IPRATROPIUM/ALBUTEROL 3 ML AMPUL.NEB NEB SCH ×4 (00:42→19:11)
[2018-02-03] MEDS: ALPRAZolam 0.5 MG TABLET PO PRN ×2 (04:20→13:43)
[2018-02-03] MEDS: 0.9 % SODIUM CHLORIDE 10 ML SYRINGE IV SCH ×3 (05:49→20:53)
[2018-02-03 06:17] LABS: Mean Cell Volume 90.2 fL (80.0-100.0); Mean Corpuscular HGB Conc 33.1 g/dL (31.0-36.0); Mean Corpuscular Hemoglobin 29.9 pg (26.0-34.0); Platelet Count 170 K/mcL (140-440); RBC 2.78 M/mcL (4.00-5.20); Red Cell Distribution Width 16.4 % (11.5-14.5)
[2018-02-03 06:47] LABS: ALT/SGPT 16 U/l (0-40); Albumin 2.8 gm/dL (3.2-5.2); Albumin/Globulin Ratio 1.2 (1.0-2.3); Alkaline Phosphatase 57 U/L (39-117); Bilirubin,Direct < 0.2 mg/dL (0.0-0.3); Blood Urea Nitrogen 13 mg/dl (8-23); Gamma Glutamyl Transpeptidase 78 U/L (5-36); Uric Acid 2.1 mg/dL (2.5-8.0)
[2018-02-03 07:51] LABS: Anisocytosis 1+ (NONE SEEN); Band Neutrophils % 1 % (0-10); Lymphocytes % 3 % (15-49); Monocytes % (Manual) 7 % (1-12); Ovalocytes FEW (NONE SEEN); Platelet Estimate NORMAL (NORMAL); RBC Morphology ABNORM (NORMAL); Segmented Neutrophils % 89 % (38-78)
[2018-02-03] MEDS: HEPARIN 5,000 UNIT/ML VIAL SQ SCH ×2 (08:45→20:54)
[2018-02-03] MEDS: MULTIVIT,THER IRON,CA,FA & MIN 1 TABLET PO SCH (08:45)
[2018-02-03] MEDS: METOPROLOL TARTRATE 50 MG TABLET PO SCH ×2 (08:45→20:54)
[2018-02-03] MEDS: DOCUSATE SODIUM 100 MG CAPSULE PO SCH ×2 (08:45→20:54)
--- NOTE | 2018-02-03 10:14 | Internal Med Progress Note ---
Medical - PN: Subj Patient information: Note initiated : 02/03/18 at 10:11 am Service Date, if different from initiated Date: [] Patient: Inessa Torres a 77 y/o F admitted on 01/29/18 for Fever/Nosocomial Pneumonia, Afib w/ RVR, Sepsis. Chief Complaint: f/u parainfluenza infection Interval history: 01/29 Ms. Torres is a 77 year old F who presents from [facility] with worsening shortness of breath fever along with mental status change weakness that has evolved over the last 72 hours. Patient has been recovering from a recent hospitalization at [place]. Where and she was treated for bowel perforation and underwent colectomy with colostomy. She was transferred for continued rehabilitation. She was also diagnosed with MRSA pneumonia and was continuing Rocephin/vancomycin at the care center. However over the last few days patient has had worsening symptoms as above including shortness of breath and fatigue ,malaise ,fever and shaking chills. She was transferred to [facility] for further evaluation. Initial workup in the ER was consistent with sepsis with fever and leukopenia however source was unclear. She was atrial fibrillation with rapid ventricular rate and was started on diltiazem. She underwent CT scan angiogram without any evidence of PE. CT abdomen was unremarkable. Hospitalist service consulted in light of above. Patient was started on antibiotic coverage. At the Time of evaluation and remembers at present. Patient was lethargic and weak however was able to provide answers to some of the questions and provide review of systems. She denies increasing ostomy output however her abdominal midline incision has not been feeling well. She denies dysuria, night sweats. She denies headache photophobia or chest pain. 01/30 Significant old records reviewed from [facility]. Patient with a history of pelvic fracture about 2 months ago, had returned to home Early January, abdominal pain and diarrhea-->diagnosed and treated for diverticulitis, returned home Forty-eight hours after returning home, recuttent abdominal pain, nausea, no stool, decreased flatus 01/14-Presents to [place], found to have perforated diverticulitis with pneumoperitoneum and pneumomediastinum (tracking from peritoneum) Transferred to [place], underwent laparotomy, sigmoid resection with sigmoidostomy and Martin's procedure Cultures: Abd: Citrobacter freundii; Klebsiella pneumoniae, Enterococcus faecalis, MRSA , Bacteroides fragilis, Clostridium perfringens Sputum: MRSA She was treated with ceftriaxone, metronidazole (and presumptive vancomycin-as is on SNF med list, but not in D/C summary) At [facility], receiving vancomycin and ceftriaxone, do not see metronidazole. Overnight, significant back pain (chronic low back pain with sciatica, worsened in bed), Tx with ketorolac Codeine listed as an allergy, but she confirms she takes Tylenol #3 at home--> allergy list updated, ketorolac stopped Today feels a little better; coughing, but no sputum; some abdominal pain, but unchanged. Cultures NGTD 01/31 Respiratory viral panel has come back positive for parainfluenza virus 2. Patient feels mildly improved today, though still with cough and malaise. She is relieved however that a likely diagnosis for her presentation has been found and that further MRSA has yet to be cultured. Worked with physical therapy, managed to get up to chair today. 02/01 Continues to have significant dyspnea at times. Cough becoming more productive , some difficulty mobilizing secretions. Having significant anxiety, worsened by dyspnea. Receive furosemide yesterday. Further dose ordered today. 02/02 Slowly improving, though still a significant fatigue. Diuresis has improved her dyspnea considerably. No chest pain, no nausea or vomiting. Adri removed from her abdominal incision yesterday. Had run of atrial fibrillation RVR overnight, received IV metoprolol, subsequent cardioverted. 02/03 Still with significant rattling cough, difficulty mobilizing secretions. Significantly wheezy this morning as well. Anxiety is improved with as needed alprazolam added during the day. Had a few beat run of wide complex tachycardia overnight, back on her home antiarrhythmic. Pertinent ROS: No fever, dyspnea persist, less anxiety. No nausea or vomiting. Appetite is okay. - Constitutional Vitals: Vital Signs Temp Pulse Resp BP Pulse Ox 96.9 F L 87 18 176/66 96 02/03/18 03:58 02/03/18 07:34 02/03/18 07:34 02/03/18 03:58 02/03/18 03:58 Period Temp Pulse Resp BP Sys/Montiel Pulse Ox Last 24 Hr 96.9 F-98.2 F 68-87 16-24 150-176/66-82 94-99 Intake and Output 02/02/18 02/03/18 02/03/18 21:59 05:59 13:59 Intake Total 809.0909 / 809.0909 Output Total 1850 / 1850 450 / 450 Balance -1040.9091 / -1040.9091 -450 / -450 Weight 170 lb 3.2 oz Intake & Output: Intake & Output 02/02/18 02/03/18 02/03/18 21:59 05:59 13:59 Intake Total 809.0909 / 809.0909 Output Total 1850 / 1850 450 / 450 Balance -1040.9091 / -1040.9091 -450 / -450 Weight 170 lb 3.2 oz Intake: IV 509.0909 / 509.0909 Potassium Phosphate 40 Meq In 509.0909 / 509.0909 Dextrose 5% in Water 500 ml @ 127.273 mls/hr IV ONCE ONE Rx#: [id number] Oral 300 / 300 Output: Urine Catheter Amount 1500 / 1500 400 / 400 Stool 350 / 350 50 / 50 Exam: General: Laying in bed, looks mildly ill Chest: Scattered rhonchi and wheezes in all lung [place] Cardiovascular: Distant, regular, trace lower extremity edema Abdomen: Soft, nontender, incisions intact, ostomy intact with stool Neuro: Alert, oriented, generally weak. Medical - PN: Obj Da - Labs CBC & Chem 7: 02/03/18 03:30 02/03/18 03:30 Labs: Abnormal Lab Results 02/03/18 02/03/18 02/02/18 03:30 03:30 03:30 RBC 2.78 L Hgb 8.3 L Hct 25.1 L RDW 16.4 H Seg Neutrophils % 89 H Lymphocytes % 3 L Nucleated RBCs 2 H RBC Morphology Abnorm A Polychromasia Basophilic Stippling Anisocytosis 1+ A Ovalocytes Few A Glucose 126 H 119 H Uric Acid 2.1 L Calcium 7.9 L 7.9 L Phosphorus 2.3 L GGT 78 H 60 H Lactate Dehydrogenase 354 H 349 H Total Protein 5.1 L 5.3 L Albumin 2.8 L 2.9 L Triglycerides 233 H 272 H 02/02/18 02/01/18 02/01/18 03:30 03:46 03:46 RBC 2.81 L 2.74 L Hgb 8.3 L 8.4 L Hct 25.5 L 24.8 L RDW 16.9 H 17.3 H Seg Neutrophils % 85 H 89 H Lymphocytes % 8 L 5 L Nucleated RBCs 1 H RBC Morphology Abnorm A Abnorm A Polychromasia Few A Basophilic Stippling Few A Anisocytosis 1+ A 1+ A Ovalocytes Glucose 119 H Uric Acid Calcium 8.0 L Phosphorus 2.1 L GGT 53 H Lactate Dehydrogenase 321 H Total Protein 5.4 L Albumin 2.9 L Triglycerides 235 H Meds: Medications Acetaminophen/Codeine Phosphate (Tylenol #3) 1 tab PO Q4-6HP PRN PRN Reason: PAIN LEVEL 3-6 Last Admin: 02/03/18 00:25 Dose: 1 tab Albuterol Sulfate (Ventolin) 2.5 mg NEB Q3HP PRN PRN Reason: Shortness Of Breath Last Admin: 02/01/18 15:41 Dose: 2.5 mg Albuterol/Ipratropium (Duoneb) 3 ml NEB Q6HRT [facility] Last Admin: 02/03/18 07:23 Dose: 3 ml Alprazolam (Xanax) 1 mg PO HS [facility] Last Admin: 02/02/18 20:29 Dose: 1 mg Alprazolam (Xanax) 0.5 mg PO TIDP PRN PRN Reason: Anxiety Last Admin: 02/03/18 04:20 Dose: 0.5 mg Ceftriaxone Sodium (Rocephin) 1 gm IV Q24H [facility] Last Admin: 02/02/18 07:55 Dose: 1 gm Docusate Sodium (Colace) 100 mg PO BID [facility] Last Admin: 02/03/18 08:45 Dose: 100 mg Guaifenesin (Robitussin Dm) 5 ml PO Q4HP PRN PRN Reason: Cough Last Admin: 02/03/18 00:25 Dose: 5 ml Heparin Sodium (Porcine) (Heparin) 5,000 unit SQ Q12 [facility] Last Admin: 02/03/18 08:45 Dose: 5,000 unit Heparin Sodium (Porcine) (Heparin Flush) 2 ml IV Q12 [facility] Last Admin: 02/03/18 08:46 Dose: 2 ml Magnesium Sulfate (Magnesium Sulfate) 2 gm in 50 mls @ 50 mls/hr IV UD PRN PRN Reason: MG = or < 1.7 Last Infusion: 01/30/18 10:00 Dose: Infused Vancomycin HCl 1,000 mg/ (Sodium Chloride) 250 mls @ 250 mls/hr IV Q48H [facility] Last Infusion: 02/01/18 09:31 Dose: Infused Iron Carb/Multivit/Dewey/Folic Acid (Multivitamin W/Minerals) 1 tab PO DAILY [facility] Last Admin: 02/03/18 08:45 Dose: 1 tab Methylprednisolone Sodium Succinate (Solu-Medrol) 62.5 mg IV Q6 [facility] Last Admin: 02/03/18 05:49 Dose: 62.5 mg Metoprolol Tartrate (Lopressor) 50 mg PO BID [facility] Last Admin: 02/03/18 08:45 Dose: 50 mg Metoprolol Tartrate (Lopressor) 5 mg IV Q6HP PRN PRN Reason: Tachyarrhythmias Last Admin: 02/02/18 03:04 Dose: 5 mg Montelukast Sodium (Singular) 10 mg PO QPM [facility] Last Admin: 02/02/18 20:29 Dose: 10 mg Ondansetron HCl (Zofran) 4 mg IV Q4-6HP PRN PRN Reason: Nausea And Vomiting Last Admin: 02/02/18 07:52 Dose: 4 mg Ivabradine Hcl [ Corlanor] 5 Mg Tablet 1 dose PO BID [facility] Last Admin: 02/02/18 23:00 Dose: 1 dose Potassium Chloride (Klor-Con) 40 meq PO DAILYP PRN PRN Reason: K+ < 3.5 Last Admin: 02/01/18 08:17 Dose: 40 meq Senna/Docusate Sodium (Senna Plus Tablet) 1 tab PO [facility] Last Admin: 02/02/18 20:29 Dose: 1 tab Sodium Chloride (Saline Flush) 10 ml IV Q8 [facility] Last Admin: 02/03/18 05:49 Dose: 10 ml Trazodone HCl (Desyrel) 50 mg PO [facility] Last Admin: 02/02/18 20:28 Dose: 50 mg Vancomycin HCl (Vancomycin Per Pharmacy) 1 order IV UD [facility] Medical - PN: A/P - Narrative A/P Narrative: 77-year-old with a recent perforated diverticulitis and abdominal surgery and post-op MRSA pneumonia undergoing rehabilitation at care home home receiving IV antibiotics decompensated with fever and shortness of breath progressing over the last 3 days prior to admission. Febrile illness at care home facility in the setting of recent peritonitis from perforated diverticulitis. Suspect now secondary to parainfluenza viral infection, and not the presence of a resistant gram- negative nosocomial infection. Parainfluenza virus 2 infection. Respiratory viral panel positive. Suspect this explains her presentation and febrile illness at her skilled facility. Plan: Droplet percussions, supportive care; flutter valve to help mobilize secretions, supplemental oxygen, bronchodilators, diurese; add steroids Wed for significant wheezing. Recent ruptured diverticulitis with pneumoperitoneum and pneumomediastinum, status post laparotomy with sigmoid colectomy and Lackey's procedure at [facility], . Was on vancomycin and ceftriaxone at [facility], should have fully covered the aerobic pathogens cultured from her abdominal wound. No further fever or leukocytosis after Zosyn stopped and changed back to ceftriaxone. Plan: Continue vancomycin, adjust based upon levels; changed back to ceftriaxone (from Zosyn) continue to monitor for recurrent fever; continue to follow up cultures here, no growth to date. Nosocomial pneumonia with MRSA cultured from sputum at [facility]. Continue with vancomycin, changed back to ceftriaxone from Zosyn, will monitor, now lower suspicion of resistant gram negatives. Plan: Continue vancomycin, dosed based upon levels; continue ceftriaxone. Atrial fibrillation rapid ventricular response. Patient is converted to sinus rhythm. Home metoprolol resumed. Also now on home ivabradine (brought in). Plan: Continue telemetry, continue metoprolol and ivabradine. Sepsis. She had leukopenia, worsened Thursday morning with a white count 1.4, better at 2.1 on recheck. Now normalized. Suspect secondary to viral illness. Plan: Monitor. Anemia. Suspect combination of chronic illness, blood loss from her surgeries. Stable. Plan: Monitor Abdominal wound from exploratory laparotomy. Status post colostomy. Plan: Wound care, ostomy care. Anxiety disorder. Worsened with dyspnea. Improved Thursday. Plan: Continue with alprazolam and trazodone, added PRN alprazolam. 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 Plan: Continue bronchodilators, supplemental oxygen, incentive spirometer. Full code Prophylaxis heparin Medical - PN: Qual - VTE Deep Vein Thrombosis/Pulmonary Embolism Present on Admission: No
[2018-02-03] MEDS: VANCOMYCIN 1,000 MG in 0.9 % SODIUM CHLORIDE 250 ML IV SCH (10:48)
[2018-02-03] MEDS ORDERED: FUROSEMIDE 40 MG/4 ML VIAL IV ONE (13:05)
[2018-02-03] MEDS: cefTRIAXone 1 GM VIAL IV SCH (13:41)
[2018-02-03] MEDS: SENNOSIDES/DOCUSATE SODIUM 1 TAB TABLET PO SCH (20:54)
[2018-02-03] MEDS: ALPRAZolam 0.5 MG TABLET PO SCH (20:54)
[2018-02-03] MEDS: MONTELUKAST 10 MG TABLET PO SCH (20:54)
[2018-02-03] MEDS: traZODone HCL 50 MG TABLET PO SCH (20:58)
[2018-02-04] MEDS: methylPREDNISolone SOD SUCC 125 MG/2 ML VIAL IV SCH ×2 (00:42→05:34)
[2018-02-04] MEDS: IPRATROPIUM/ALBUTEROL 3 ML AMPUL.NEB NEB SCH ×4 (00:43→19:17)
[2018-02-04] MEDS: ALPRAZolam 0.5 MG TABLET PO PRN ×2 (01:15→08:46)
[2018-02-04] MEDS: ACETAMINOPHEN W/CODEINE #3 1 TABLET PO PRN ×4 (01:17→21:12)
[2018-02-04] MEDS: 0.9 % SODIUM CHLORIDE 10 ML SYRINGE IV SCH ×3 (05:35→22:00)
[2018-02-04 06:57] LABS: Basophils # (Auto) 0 K/mcL (0.0-0.3); Basophils % (Auto) 0 % (0.0-2.0); Eosinophils # (Auto) 0 K/mcL (0.0-0.7); Eosinophils % (Auto) 0 % (0.0-7.0); Granulocytes % (Auto) 85.4 % (38.0-78.0); Lymphocytes # (Auto) 0.4 K/mcL (1.5-4.8); Lymphocytes % (Auto) 5.5 % (15.5-49.0); Mean Cell Volume 90.7 fL (80.0-100.0); Mean Corpuscular Hemoglobin 29.9 pg (26.0-34.0); Monocytes # (Auto) 0.7 K/mcL (0.1-0.9); Monocytes % (Auto) 9.1 % (1.0-12.0); Platelet Count 182 K/mcL (140-440); RBC 2.85 M/mcL (4.00-5.20); Red Cell Distribution Width 16.5 % (11.5-14.5)
[2018-02-04 07:36] LABS: ALT/SGPT 24 U/l (0-40); Albumin 2.9 gm/dL (3.2-5.2); Albumin/Globulin Ratio 1.3 (1.0-2.3); Alkaline Phosphatase 67 U/L (39-117); Bilirubin,Direct < 0.2 mg/dL (0.0-0.3); Blood Urea Nitrogen 14 mg/dl (8-23); Gamma Glutamyl Transpeptidase 125 U/L (5-36); Uric Acid 2.4 mg/dL (2.5-8.0)
[2018-02-04] MEDS: FUROSEMIDE 40 MG/4 ML VIAL IV SCH (08:42)
[2018-02-04] MEDS: MULTIVIT,THER IRON,CA,FA & MIN 1 TABLET PO SCH (08:42)
[2018-02-04] MEDS: DOCUSATE SODIUM 100 MG CAPSULE PO SCH ×2 (08:42→19:35)
[2018-02-04] MEDS: HEPARIN 5,000 UNIT/ML VIAL SQ SCH ×2 (08:42→19:37)
[2018-02-04] MEDS: cefTRIAXone 1 GM VIAL IV SCH (08:42)
[2018-02-04] MEDS: METOPROLOL TARTRATE 50 MG TABLET PO SCH ×2 (08:43→19:35)
[2018-02-04] MEDS: ONDANSETRON 4 MG/2 ML VIAL IV PRN (13:29)
[2018-02-04] MEDS ORDERED: PANTOPRAZOLE 40 MG VIAL IV ONE (14:46)
[2018-02-04] MEDS: VENLAFAXINE 37.5 MG TAB.ER.24H PO SCH (15:20)
[2018-02-04] MEDS: NYSTATIN 500,000 UNITS/5 ML ORAL.SUSP SSP SCH ×2 (15:21→19:37)
--- NOTE | 2018-02-04 18:24 | Internal Med Progress Note ---
Medical - PN: Subj Patient information: Note initiated : 02/04/18 at 6:22 pm Service Date, if different from initiated Date: [] Patient: Inessa Torres a 77 y/o F admitted on 01/29/18 for Fever/Nosocomial Pneumonia, Afib w/ RVR, Sepsis. Chief Complaint: [] Interval history: Ms. Torres is a 77 year old F who presents from [facility] with worsening shortness of breath fever along with mental status change weakness that has evolved over the last 72 hours. Patient has been recovering from a recent hospitalization at [place]. Where and she was treated for bowel perforation and underwent colectomy with colostomy. She was transferred for continued rehabilitation. She was also diagnosed with MRSA pneumonia and was continuing Rocephin/vancomycin at the care center. However over the last few days patient has had worsening symptoms as above including shortness of breath and fatigue ,malaise ,fever and shaking chills. She was transferred to [facility] for further evaluation. Initial workup in the ER was consistent with sepsis with fever and leukopenia however source was unclear. She was atrial fibrillation with rapid ventricular rate and was started on diltiazem. She underwent CT scan angiogram without any evidence of PE. CT abdomen was unremarkable. Hospitalist service consulted in light of above. Patient was started on antibiotic coverage. At the Time of evaluation and remembers at present. Patient was lethargic and weak however was able to provide answers to some of the questions and provide review of systems. She denies increasing ostomy output however her abdominal midline incision has not been feeling well. She denies dysuria, night sweats. She denies headache photophobia or chest pain. 01/30 Significant old records reviewed from [facility]. Patient with a history of pelvic fracture about 2 months ago, had returned to home Early January, abdominal pain and diarrhea-->diagnosed and treated for diverticulitis, returned home Forty-eight hours after returning home, recuttent abdominal pain, nausea, no stool, decreased flatus 01/14-Presents to [place], found to have perforated diverticulitis with pneumoperitoneum and pneumomediastinum (tracking from peritoneum) Transferred to [place], underwent laparotomy, sigmoid resection with sigmoidostomy and Martin's procedure Cultures: Abd: Citrobacter freundii; Klebsiella pneumoniae, Enterococcus faecalis, MRSA , Bacteroides fragilis, Clostridium perfringens Sputum: MRSA She was treated with ceftriaxone, metronidazole (and presumptive vancomycin-as is on SNF med list, but not in D/C summary) At [facility], receiving vancomycin and ceftriaxone, do not see metronidazole. Overnight, significant back pain (chronic low back pain with sciatica, worsened in bed), Tx with ketorolac Codeine listed as an allergy, but she confirms she takes Tylenol #3 at home--> allergy list updated, ketorolac stopped Today feels a little better; coughing, but no sputum; some abdominal pain, but unchanged. Cultures NGTD 01/31 Respiratory viral panel has come back positive for parainfluenza virus 2. Patient feels mildly improved today, though still with cough and malaise. She is relieved however that a likely diagnosis for her presentation has been found and that further MRSA has yet to be cultured. Worked with physical therapy, managed to get up to chair today. 02/01 Continues to have significant dyspnea at times. Cough becoming more productive , some difficulty mobilizing secretions. Having significant anxiety, worsened by dyspnea. Receive furosemide yesterday. Further dose ordered today. 02/02 Slowly improving, though still a significant fatigue. Diuresis has improved her dyspnea considerably. No chest pain, no nausea or vomiting. Adri removed from her abdominal incision yesterday. Had run of atrial fibrillation RVR overnight, received IV metoprolol, subsequent cardioverted. 02/03 Still with significant rattling cough, difficulty mobilizing secretions. Significantly wheezy this morning as well. Anxiety is improved with as needed alprazolam added during the day. Had a few beat run of wide complex tachycardia overnight, back on her home antiarrhythmic. 02/04 patient seen examiend, no acute overnight issues, still has wheezing, using xanax for anxiety, but has no clinical signs of anxiety the wound care nurse noted pt reported to her that she feels depressed with all that has been happening so far. Agreeable to start on anti depressants not working with PT, just likes to be in bed plan for d/c plascencia catheter try to encourage PT wean off steroids, some nausea reported was on steroids, iV ppi started no acute tele events reported Pertinent ROS: Denies headache, dizziness Denies chest pain, palpitations Denies cough or shortness of breath Denies abdominal pain, nausea or vomiting. - Constitutional Vitals: Vital Signs Temp Pulse Resp BP Pulse Ox 98.8 F 70 22 124/103 97 02/04/18 16:00 02/04/18 16:00 02/04/18 16:00 02/04/18 12:00 02/04/18 16:00 Period Temp Pulse Resp BP Sys/Montiel Pulse Ox Last 24 Hr 96.9 F-98.8 F 54-105 18-24 124-160/71-103 94-99 Intake and Output 02/04/18 02/04/18 02/04/18 05:59 13:59 21:59 Intake Total 340 / 340 100 / 100 Output Total 350 / 350 25 / 25 Balance -350 / -350 340 / 340 75 / 75 Weight 168 lb 3.2 oz Patient Weight 02/05/18 05:59 Weight 168 lb 3.2 oz Intake & Output: Intake & Output 02/04/18 02/04/18 02/04/18 05:59 13:59 21:59 Intake Total 340 / 340 100 / 100 Output Total 350 / 350 25 / 25 Balance -350 / -350 340 / 340 75 / 75 Weight 168 lb 3.2 oz Intake: Oral 340 / 340 100 / 100 Output: Urine Catheter Amount 350 / 350 Void Amount 25 / 25 Other: Meal Breakfast Dinner Percent of Meal Consumed 50% a few bite Feeding Ability Assist with Tray Set Up Assist with Tray Set Up Urine Appearance Clear Clear Urine Color Pale Bright Yellow Straw Exam: Constitutional; Afebrile, cooperative, alert, not in distress. morbidly obese Respiratory system: Air Entry equal on both sides, No crackles or wheezing, no rhonchi. CVS- Rate rhythm regular, S1,S2 heard, no gallop, no rub. Abdomen- Soft nontender abdomen, no organomegaly, no tenderness, no guarding or rigidity, colostomy bag in place. HELP DESK OPERATOR- AOOx3, moving all extremities, no gross focal deficit noted. Medical - PN: Obj Da - Labs CBC & Chem 7: 02/04/18 03:40 02/04/18 03:40 Labs: Abnormal Lab Results 02/04/18 02/04/18 02/03/18 03:40 03:40 03:30 RBC 2.85 L Hgb 8.5 L Hct 25.8 L RDW 16.5 H Gran % 85.4 H Lymph % (Auto) 5.5 L Lymph # (Auto) 0.4 L Seg Neutrophils % Lymphocytes % Nucleated RBCs RBC Morphology Polychromasia Basophilic Stippling Anisocytosis Ovalocytes Glucose 117 H 126 H Uric Acid 2.4 L 2.1 L Calcium 8.4 L 7.9 L Phosphorus GGT 125 H 78 H Lactate Dehydrogenase 413 H 354 H Total Protein 5.1 L 5.1 L Albumin 2.9 L 2.8 L Triglycerides 227 H 233 H 02/03/18 02/02/18 02/02/18 03:30 03:30 03:30 RBC 2.78 L 2.81 L Hgb 8.3 L 8.3 L Hct 25.1 L 25.5 L RDW 16.4 H 16.9 H Gran % Lymph % (Auto) Lymph # (Auto) Seg Neutrophils % 89 H 85 H Lymphocytes % 3 L 8 L Nucleated RBCs 2 H 1 H RBC Morphology Abnorm A Abnorm A Polychromasia Few A Basophilic Stippling Few A Anisocytosis 1+ A 1+ A Ovalocytes Few A Glucose 119 H Uric Acid Calcium 7.9 L Phosphorus 2.3 L GGT 60 H Lactate Dehydrogenase 349 H Total Protein 5.3 L Albumin 2.9 L Triglycerides 272 H Meds: Medications Acetaminophen/Codeine Phosphate (Tylenol #3) 1 tab PO Q4-6HP PRN PRN Reason: PAIN LEVEL 3-6 Last Admin: 02/04/18 15:36 Dose: 1 tab Albuterol Sulfate (Ventolin) 2.5 mg NEB Q3HP PRN PRN Reason: Shortness Of Breath Last Admin: 02/01/18 15:41 Dose: 2.5 mg Albuterol/Ipratropium (Duoneb) 3 ml NEB Q6HRT [facility] Last Admin: 02/04/18 13:33 Dose: 3 ml Alprazolam (Xanax) 1 mg PO HS [facility] Last Admin: 02/03/18 20:54 Dose: 1 mg Alprazolam (Xanax) 0.5 mg PO TIDP PRN PRN Reason: Anxiety Last Admin: 02/04/18 08:46 Dose: 0.5 mg Ceftriaxone Sodium (Rocephin) 1 gm IV Q24H [facility] Last Admin: 02/04/18 08:42 Dose: 1 gm Docusate Sodium (Colace) 100 mg PO BID [facility] Last Admin: 02/04/18 08:42 Dose: 100 mg Furosemide (Lasix) 40 mg IV DAILY [facility] Last Admin: 02/04/18 08:42 Dose: 40 mg Guaifenesin (Robitussin Dm) 5 ml PO Q4HP PRN PRN Reason: Cough Last Admin: 02/03/18 00:25 Dose: 5 ml Heparin Sodium (Porcine) (Heparin) 5,000 unit SQ Q12 [facility] Last Admin: 02/04/18 08:42 Dose: 5,000 unit Heparin Sodium (Porcine) (Heparin Flush) 2 ml IV Q12 [facility] Last Admin: 02/04/18 08:41 Dose: 2 ml Magnesium Sulfate (Magnesium Sulfate) 2 gm in 50 mls @ 50 mls/hr IV UD PRN PRN Reason: MG = or < 1.7 Last Infusion: 01/30/18 10:00 Dose: Infused Vancomycin HCl 1,000 mg/ (Sodium Chloride) 250 mls @ 250 mls/hr IV Q48H [facility] Last Infusion: 02/03/18 12:21 Dose: Infused Iron Carb/Multivit/Tur[place]/Folic Acid (Multivitamin W/Minerals) 1 tab PO DAILY [facility] Last Admin: 02/04/18 08:42 Dose: 1 tab Metoprolol Tartrate (Lopressor) 50 mg PO BID [facility] Last Admin: 02/04/18 08:43 Dose: 50 mg Metoprolol Tartrate (Lopressor) 5 mg IV Q6HP PRN PRN Reason: Tachyarrhythmias Last Admin: 02/02/18 03:04 Dose: 5 mg Montelukast Sodium (Singular) 10 mg PO QPM [facility] Last Admin: 02/03/18 20:54 Dose: 10 mg Nystatin (Nystatin) 500,000 units SSP TID [facility] Last Admin: 02/04/18 15:21 Dose: 500,000 units Ondansetron HCl (Zofran) 4 mg IV Q4-6HP PRN PRN Reason: Nausea And Vomiting Last Admin: 02/04/18 13:29 Dose: 4 mg Pantoprazole Sodium (Protonix) 40 mg IV QAMAC [facility] Ivabradine Hcl [ Corlanor] 5 Mg Tablet 1 dose PO BID [facility] Last Admin: 02/04/18 08:42 Dose: 1 dose Potassium Chloride (Klor-Con) 40 meq PO DAILYP PRN PRN Reason: K+ < 3.5 Last Admin: 02/01/18 08:17 Dose: 40 meq Prednisone (Prednisone) 40 mg PO [facility] Senna/Docusate Sodium (Senna Plus Tablet) 1 tab PO [facility] Last Admin: 02/03/18 20:54 Dose: 1 tab Sodium Chloride (Saline Flush) 10 ml IV Q8 [facility] Last Admin: 02/04/18 15:21 Dose: 10 ml Trazodone HCl (Desyrel) 50 mg PO [facility] Last Admin: 02/03/18 20:58 Dose: 50 mg Vancomycin HCl (Vancomycin Per Pharmacy) 1 order IV UD [facility] Venlafaxine HCl (Effexor Xr) 37.5 mg PO DAILY [facility] Last Admin: 02/04/18 15:20 Dose: 37.5 mg Medical - PN: A/P - Time Spent With Patient Total time spent is greater than 50% in coordination of care (as documented) at patient's floor/unit and/or counseling patient: - Narrative A/P Narrative: 77-year-old with a recent perforated diverticulitis and abdominal surgery and post-op MRSA pneumonia undergoing rehabilitation at [facility] home receiving IV antibiotics decompensated with fever and shortness of breath progressing over the last 3 days prior to admission. Febrile illness at [facility] facility in the setting of recent peritonitis from perforated diverticulitis. Suspect now secondary to parainfluenza viral infection, and not the presence of a resistant gram- negative nosocomial infection. Parainfluenza virus 2 infection. Respiratory viral panel positive. Suspect this explains her presentation and febrile illness at her skilled facility. Plan: Droplet percussions, supportive care; flutter valve to help mobilize secretions, supplemental oxygen, bronchodilators, diurese; wean IV solumedrol to po prednisone. Recent ruptured diverticulitis with pneumoperitoneum and pneumomediastinum, status post laparotomy with sigmoid colectomy and Lackey's procedure at [facility], . Was on vancomycin and ceftriaxone at SNF, should have fully covered the aerobic pathogens cultured from her abdominal wound. No further fever or leukocytosis after Zosyn stopped and changed back to ceftriaxone. Plan: Continue vancomycin, adjust based upon levels; changed back to ceftriaxone (from Zosyn) continue to monitor for recurrent fever; continue to follow up cultures here, no growth to date. ID consulted to see how long we need to continue antibiotics. Nosocomial pneumonia with MRSA cultured from sputum at [facility]. Continue with vancomycin, changed back to ceftriaxone from Zosyn, will monitor, now lower suspicion of resistant gram negatives. Plan: Continue vancomycin, dosed based upon levels; continue ceftriaxone. ID to help wtih ABX Atrial fibrillation rapid ventricular response. Patient is converted to sinus rhythm. Home metoprolol resumed. Also now on home ivabradine (brought in). Plan: Continue telemetry, continue metoprolol and ivabradine. Sepsis. She had leukopenia, worsened Thursday morning with a white count 1.4, better at 2.1 on recheck. Now normalized. Suspect secondary to viral illness. Plan: Monitor. Anemia. Suspect combination of chronic illness, blood loss from her surgeries. Stable. Plan: Monitor Abdominal wound from exploratory laparotomy. Status post colostomy. Plan: Wound care, ostomy care. Anxiety disorder. Worsened with dyspnea. Improved Thursday. Plan: Continue with alprazolam and trazodone, added PRN alprazolam. Acute copd exacerbation- right diaphragmatic paralysis, chronic hypoxic respiratory failure on oxygen at home. Plan: Continue bronchodilators, supplemental oxygen, incentive spirometer and steroids Full code Prophylaxis heparin Medical - PN: Qual - VTE Deep Vein Thrombosis/Pulmonary Embolism Present on Admission: No
[2018-02-04] MEDS: traZODone HCL 50 MG TABLET PO SCH (19:37)
[2018-02-04] MEDS: MONTELUKAST 10 MG TABLET PO SCH (19:37)
[2018-02-04] MEDS: SENNOSIDES/DOCUSATE SODIUM 1 TAB TABLET PO SCH (19:37)
[2018-02-04] MEDS: ALPRAZolam 0.5 MG TABLET PO SCH (19:38)
[2018-02-05] MEDS: IPRATROPIUM/ALBUTEROL 3 ML AMPUL.NEB NEB SCH ×6 (01:27→23:15)
[2018-02-05] MEDS: ACETAMINOPHEN W/CODEINE #3 1 TABLET PO PRN ×3 (02:51→18:39)
--- NOTE | 2018-02-05 05:41 | Infectious Disease Consult ---
History of Present Illness Patient information: Note initiated : 02/05/18 at 5:18 am Service Date, if different from initiated Date: [] Patient: Inessa Torres 77 y/o F admitted on 01/29/18 for Fever/Nosocomial Pneumonia, Afib w/ RVR, Sepsis. Chief Complaint: [] Consult date: 02/04/18 Requesting Physician: Ene Toney Reason for Consult: duration of antibiotics for rcent Hx of perforated diverticulitis History of present illness: HPI obtained from chart review as pt not able to give complete Hx Briefly, 77-year old lady with PMHx pertinent for: - perforated diverticulitis, s/p colectomy and end colostomy [Martin's procedure] on 01/14 [address] [facility], initiated on IV Vanc and IV Zosyn (then switched to IV Ceftriaxone prior to discharge) -COPD Pt has been staying at [facility] for rehab and nursing care. On 01/31, she was brought to [facility] ER with worsening shortness of breath, fever ( 102F at the [facility]), mental status change for last 2-3 days. Acc to notes, initial eval in the ER was concerning for sepsis however source was unclear. Pt also was found to have atrial fibrillation with RVR. CT chest ( PE protocol), and CT abdomen were unremarkable. At admission, there was no concerns for increasing ostomy output (which might suggest diarrhea), burning while urination, night sweats, chest pain. Pt did endorse some belly pain, cough. After admission, a RVP was also sent which came back +ve for Parainfluenza virus 2. During her hospital stay initially, she continued to have SOB, with productive cough and anxiety which improved with diuresis and bronchodilators. Her fredi from midline incision were removed on 02/02 without any signs of local infection (per notes). She also need cardioversion for rapid Afib around 02/02. At time of visit today, pt's daughter was also present with pt. Pt mentioned she is feeling weak and tired. She denied any fever, chills, n/v/diarrhea, belly pain. She endorsed some cough and pain with deep breathing. Review of Systems All systems PM: reviewed and no additional remarkable complaints except as stated Past History Past family history: not pertinent for current presentation Past social history: came from a nursing facility prior to admission but previously used to live at home Medications and Allergies Home Medications Medication Instructions Recorded Confirmed Type ALPRAZolam [Xanax] 1 mg PO HS 05/08/15 01/29/18 History Cholecalciferol (Vitamin D3) 5,000 unit PO QDAY 05/08/15 01/29/18 History [Vitamin D-3] albuterol sulfate HFA 90 2 puff INHALATION QID PRN g 06/18/17 01/29/18 History mcg/actuation aerosol inhaler ipratropium bromide 0.02 % 0.5 mg INHALATION Q6H PRN ml 09/24/17 01/29/18 History solution for inhalation ivabradine 5 mg tablet 5 mg PO BID 09/24/17 01/29/18 History montelukast 10 mg tablet 10 mg PO QPM 09/24/17 01/29/18 History trazodone 50 mg tablet 50 mg PO HS tab 09/24/17 01/29/18 History Ibuprofen [Ibu] 600 mg PO ONCE PRN 01/29/18 01/29/18 History Metoprolol Tartrate 50 mg PO BID 01/29/18 01/29/18 History Ondansetron HCl [Zofran ODT] 4 mg SL Q4-6HP PRN 01/29/18 01/29/18 History Pantoprazole [Protonix] 40 mg PO ONCE 01/29/18 01/29/18 History predniSONE [Prednisone] 12.5 mg PO ONCE 01/29/18 01/29/18 History Allergies Allergy/AdvReac Type Severity Reaction Status Date / Time fluoxetine Allergy Unknown Verified 01/30/18 11:51 immune globulin,alpha (IgA) Allergy Unknown Verified 01/30/18 11:51 morphine AdvReac Mild Hallucinati Verified 09/24/17 13:19 ng Physical Examination Vital signs: Temp Pulse Resp BP Pulse Ox 36.1 C 77 18 167/70 98 02/04/18 19:03 02/04/18 19:17 02/04/18 19:17 02/04/18 19:03 02/04/18 19:17 General appearance: no acute distress Eyes pulmonary: nonicteric ENT: other (thrush) Auscultation: bilateral: clear Cardiovascular: regular rate and rhythm Gastrointestinal: normoactive bowel sounds, non-tender Extremities: edema Results - Laboratory Findings CBC and BMP: 02/05/18 04:00 02/05/18 04:00 PT/INR, D-dimer D-Dimer 2.73 ug/ml (0.00-0.40) H 01/29/18 04:34 Abnormal lab findings: Abnormal Labs 01/29/18 01/29/18 01/29/18 04:18 04:18 04:18 WBC 3.5 L RBC 3.26 L Hgb 9.8 L Hct 29.4 L RDW 17.2 H Gran % Lymph % (Auto) Branch % (Auto) 21.0 H Lymph # (Auto) 0.7 L Seg Neutrophils % Lymphocytes % Monocytes % (Manual) Nucleated RBCs RBC Morphology Polychromasia Basophilic Stippling Anisocytosis Ovalocytes ESR D-Dimer Potassium 3.0 L Chloride Carbon Dioxide Glucose Uric Acid Calcium 8.1 L Phosphorus GGT Lactate Dehydrogenase C-Reactive Protein 1.8 H NT-Pro-B Natriuret Pep 910.4 H Total Protein 5.6 L Albumin Triglycerides Urine Protein Amorphous Crystals Hyaline Casts Vancomycin Trough 01/29/18 01/29/18 01/29/18 04:34 04:52 10:41 WBC RBC Hgb Hct RDW Gran % Lymph % (Auto) Branch % (Auto) Lymph # (Auto) Seg Neutrophils % Lymphocytes % Monocytes % (Manual) 14 H Nucleated RBCs 1 H RBC Morphology Abnorm A Polychromasia 1+ A Basophilic Stippling Anisocytosis 1+ A Ovalocytes ESR D-Dimer 2.73 H Potassium Chloride Carbon Dioxide Glucose Uric Acid Calcium Phosphorus GGT Lactate Dehydrogenase C-Reactive Protein NT-Pro-B Natriuret Pep Total Protein Albumin Triglycerides Urine Protein 30 A Amorphous Crystals Few A Hyaline Casts 4 H Vancomycin Trough 01/29/18 01/30/18 01/30/18 11:30 04:00 04:00 WBC 1.4 L RBC 2.83 L Hgb 8.4 L Hct 25.8 L RDW 17.4 H Gran % Lymph % (Auto) Branch % (Auto) Lymph # (Auto) Seg Neutrophils % 82 H Lymphocytes % 9 L Monocytes % (Manual) Nucleated RBCs RBC Morphology Abnorm A Polychromasia Basophilic Stippling Anisocytosis 1+ A Ovalocytes ESR 91 H D-Dimer Potassium Chloride Carbon Dioxide Glucose 124 H Uric Acid Calcium 7.6 L Phosphorus GGT 62 H Lactate Dehydrogenase 270 H C-Reactive Protein NT-Pro-B Natriuret Pep Total Protein 5.1 L Albumin 2.7 L Triglycerides 151 H Urine Protein Amorphous Crystals Hyaline Casts Vancomycin Trough 01/30/18 01/31/18 01/31/18 12:41 03:58 03:58 WBC 2.1 L RBC 2.84 L 2.67 L Hgb 8.5 L 8.1 L Hct 25.3 L 24.3 L RDW 16.8 H 17.1 H Gran % Lymph % (Auto) Branch % (Auto) Lymph # (Auto) Seg Neutrophils % 90 H Lymphocytes % 14 L 7 L Monocytes % (Manual) Nucleated RBCs 1 H RBC Morphology Abnorm A Abnorm A Polychromasia Basophilic Stippling Anisocytosis 1+ A 1+ A Ovalocytes ESR D-Dimer Potassium 3.2 L Chloride 109 H Carbon Dioxide 21 L Glucose 181 H Uric Acid Calcium 7.5 L Phosphorus GGT 53 H Lactate Dehydrogenase 338 H C-Reactive Protein NT-Pro-B Natriuret Pep Total Protein 4.8 L Albumin 2.5 L Triglycerides 206 H Urine Protein Amorphous Crystals Hyaline Casts Vancomycin Trough 01/31/18 02/01/18 02/01/18 08:00 03:46 03:46 WBC RBC 2.74 L Hgb 8.4 L Hct 24.8 L RDW 17.3 H Gran % Lymph % (Auto) Branch % (Auto) Lymph # (Auto) Seg Neutrophils % 89 H Lymphocytes % 5 L Monocytes % (Manual) Nucleated RBCs RBC Morphology Abnorm A Polychromasia Basophilic Stippling Anisocytosis 1+ A Ovalocytes ESR D-Dimer Potassium Chloride Carbon Dioxide Glucose 119 H Uric Acid Calcium 8.0 L Phosphorus 2.1 L GGT 53 H Lactate Dehydrogenase 321 H C-Reactive Protein NT-Pro-B Natriuret Pep Total Protein 5.4 L Albumin 2.9 L Triglycerides 235 H Urine Protein Amorphous Crystals Hyaline Casts Vancomycin Trough 23.2 H* 02/02/18 02/02/18 02/03/18 03:30 03:30 03:30 WBC RBC 2.81 L 2.78 L Hgb 8.3 L 8.3 L Hct 25.5 L 25.1 L RDW 16.9 H 16.4 H Gran % Lymph % (Auto) Branch % (Auto) Lymph # (Auto) Seg Neutrophils % 85 H 89 H Lymphocytes % 8 L 3 L Monocytes % (Manual) Nucleated RBCs 1 H 2 H RBC Morphology Abnorm A Abnorm A Polychromasia Few A Basophilic Stippling Few A Anisocytosis 1+ A 1+ A Ovalocytes Few A ESR D-Dimer Potassium Chloride Carbon Dioxide Glucose 119 H Uric Acid Calcium 7.9 L Phosphorus 2.3 L GGT 60 H Lactate Dehydrogenase 349 H C-Reactive Protein NT-Pro-B Natriuret Pep Total Protein 5.3 L Albumin 2.9 L Triglycerides 272 H Urine Protein Amorphous Crystals Hyaline Casts Vancomycin Trough 02/03/18 02/04/18 02/04/18 03:30 03:40 03:40 WBC RBC 2.85 L Hgb 8.5 L Hct 25.8 L RDW 16.5 H Gran % 85.4 H Lymph % (Auto) 5.5 L Branch % (Auto) Lymph # (Auto) 0.4 L Seg Neutrophils % Lymphocytes % Monocytes % (Manual) Nucleated RBCs RBC Morphology Polychromasia Basophilic Stippling Anisocytosis Ovalocytes ESR D-Dimer Potassium Chloride Carbon Dioxide Glucose 126 H 117 H Uric Acid 2.1 L 2.4 L Calcium 7.9 L 8.4 L Phosphorus GGT 78 H 125 H Lactate Dehydrogenase 354 H 413 H C-Reactive Protein NT-Pro-B Natriuret Pep Total Protein 5.1 L 5.1 L Albumin 2.8 L 2.9 L Triglycerides 233 H 227 H Urine Protein Amorphous Crystals Hyaline Casts Vancomycin Trough Microbiology: Microbiology 01/29/18 04:18 Blood Blood Culture - Final 01/29/18 04:34 Blood Blood Culture - Final 01/29/18 20:58 Sputum - Induced Gram Stain - Final 01/29/18 20:58 Sputum - Induced Sputum Culture - Final 01/30/18 16:25 Nasopharynx Respiratory Virus Panel (PCR) - Final 01/30/18 16:25 Nasopharynx Respiratory Panel (PCR) - Final Assessment and Plan - Narrative A/P Narrative: A: 1. Recent Hx of perforated diverticulitis, s/p colectomy and end colostomy [ Martin's procedure] on 01/14 [address] [facility], s/p 3 weeks of IV antibiotics: IV Vanc and initiallyIV Zosyn (then switched to IV Ceftriaxone prior to discharge), continued here until today - neg CT abd for any fluid collections - Blood Cx and sputum Cx NGTD 2. COPD exacerbation with component of fluid overload 3. Oral thrush: sec to antibiotics 4. Deconditioning Recommendations: - Stop IV antibiotics - Start PO Augmentin 875 bid x 3 days to finish a treatment course for COPD exacerbation (including what pt prev received since admission) - Continue Nystatin s.s qid x 7 days - No ID f/u needed Akash Bass MD Infectious diseases
[2018-02-05] MEDS: 0.9 % SODIUM CHLORIDE 10 ML SYRINGE IV SCH ×3 (05:46→21:36)
[2018-02-05] MEDS: PANTOPRAZOLE 40 MG VIAL IV SCH (06:48)
[2018-02-05 06:50] LABS: Basophils # (Auto) 0 K/mcL (0.0-0.3); Basophils % (Auto) 0 % (0.0-2.0); Eosinophils # (Auto) 0 K/mcL (0.0-0.7); Eosinophils % (Auto) 0.1 % (0.0-7.0); Granulocytes % (Auto) 78.8 % (38.0-78.0); Lymphocytes # (Auto) 0.7 K/mcL (1.5-4.8); Lymphocytes % (Auto) 7.1 % (15.5-49.0); Mean Cell Volume 90.7 fL (80.0-100.0); Mean Corpuscular HGB Conc 33.2 g/dL (31.0-36.0); Mean Corpuscular Hemoglobin 30.1 pg (26.0-34.0); Monocytes # (Auto) 1.3 K/mcL (0.1-0.9); Platelet Count 174 K/mcL (140-440); RBC 2.86 M/mcL (4.00-5.20); Red Cell Distribution Width 16.7 % (11.5-14.5)
[2018-02-05 08:04] LABS: ALT/SGPT 32 U/l (0-40); Albumin 2.8 gm/dL (3.2-5.2); Albumin/Globulin Ratio 1.3 (1.0-2.3); Alkaline Phosphatase 72 U/L (39-117); Bilirubin,Direct < 0.2 mg/dL (0.0-0.3); Blood Urea Nitrogen 16 mg/dl (8-23); Gamma Glutamyl Transpeptidase 158 U/L (5-36); Uric Acid 3.1 mg/dL (2.5-8.0)
[2018-02-05] MEDS ORDERED: POTASSIUM CHLORIDE 40 MEQ in DEXTROSE 5% IN WATER 500 ML IV ONE (08:22)
[2018-02-05] MEDS ORDERED: POTASSIUM CHLORIDE 20 MEQ PACKET PO ONE (08:22)
[2018-02-05] MEDS: VENLAFAXINE 37.5 MG TAB.ER.24H PO SCH (09:42)
[2018-02-05] MEDS: HEPARIN 5,000 UNIT/ML VIAL SQ SCH ×2 (09:42→21:25)
[2018-02-05] MEDS: FUROSEMIDE 40 MG/4 ML VIAL IV SCH (09:42)
[2018-02-05] MEDS: NYSTATIN 500,000 UNITS/5 ML ORAL.SUSP SSP SCH ×3 (09:42→21:36)
[2018-02-05] MEDS: DOCUSATE SODIUM 100 MG CAPSULE PO SCH ×2 (09:43→21:36)
[2018-02-05] MEDS: MULTIVIT,THER IRON,CA,FA & MIN 1 TABLET PO SCH (09:43)
[2018-02-05] MEDS: predniSONE 20 MG TABLET PO SCH (09:43)
[2018-02-05] MEDS: METOPROLOL TARTRATE 50 MG TABLET PO SCH ×2 (09:43→21:36)
[2018-02-05] MEDS: ONDANSETRON 4 MG/2 ML VIAL IV PRN ×3 (09:49→21:26)
[2018-02-05] MEDS: cefTRIAXone 1 GM VIAL IV SCH (13:39)
[2018-02-05] MEDS: VANCOMYCIN 1,000 MG in 0.9 % SODIUM CHLORIDE 250 ML IV SCH ×3 (13:39→13:58)
--- NOTE | 2018-02-05 17:48 | Internal Med Progress Note ---
Medical - PN: Subj Patient information: Note initiated : 02/05/18 at 5:45 pm Service Date, if different from initiated Date: [] Patient: Inessa Torres a 77 y/o F admitted on 01/29/18 for Fever/Nosocomial Pneumonia, Afib w/ RVR, Sepsis. Chief Complaint: [] Interval history: Ms. Torres is a 77 year old F who presents from [facility] with worsening shortness of breath fever along with mental status change weakness that has evolved over the last 72 hours. Patient has been recovering from a recent hospitalization at [facility]. Where and she was treated for bowel perforation and underwent colectomy with colostomy. She was transferred for continued rehabilitation. She was also diagnosed with MRSA pneumonia and was continuing Rocephin/vancomycin at the care center. However over the last few days patient has had worsening symptoms as above including shortness of breath and fatigue ,malaise ,fever and shaking chills. She was transferred to [facility] for further evaluation. Initial workup in the ER was consistent with sepsis with fever and leukopenia however source was unclear. She was atrial fibrillation with rapid ventricular rate and was started on diltiazem. She underwent CT scan angiogram without any evidence of PE. CT abdomen was unremarkable. Hospitalist service consulted in light of above. Patient was started on antibiotic coverage. At the Time of evaluation and remembers at present. Patient was lethargic and weak however was able to provide answers to some of the questions and provide review of systems. She denies increasing ostomy output however her abdominal midline incision has not been feeling well. She denies dysuria, night sweats. She denies headache photophobia or chest pain. 01/30 Significant old records reviewed from [facility]. Patient with a history of pelvic fracture about 2 months ago, had returned to home Early January, abdominal pain and diarrhea-->diagnosed and treated for diverticulitis, returned home Forty-eight hours after returning home, recuttent abdominal pain, nausea, no stool, decreased flatus 01/14-Presents to [facility], found to have perforated diverticulitis with pneumoperitoneum and pneumomediastinum (tracking from peritoneum) Transferred to [place], underwent laparotomy, sigmoid resection with sigmoidostomy and Martin's procedure Cultures: Abd: Citrobacter freundii; Klebsiella pneumoniae, Enterococcus faecalis, MRSA , Bacteroides fragilis, Clostridium perfringens Sputum: MRSA She was treated with ceftriaxone, metronidazole (and presumptive vancomycin-as is on SNF med list, but not in D/C summary) At [facility], receiving vancomycin and ceftriaxone, do not see metronidazole. Overnight, significant back pain (chronic low back pain with sciatica, worsened in bed), Tx with ketorolac Codeine listed as an allergy, but she confirms she takes Tylenol #3 at home--> allergy list updated, ketorolac stopped Today feels a little better; coughing, but no sputum; some abdominal pain, but unchanged. Cultures NGTD 01/31 Respiratory viral panel has come back positive for parainfluenza virus 2. Patient feels mildly improved today, though still with cough and malaise. She is relieved however that a likely diagnosis for her presentation has been found and that further MRSA has yet to be cultured. Worked with physical therapy, managed to get up to chair today. 02/01 Continues to have significant dyspnea at times. Cough becoming more productive , some difficulty mobilizing secretions. Having significant anxiety, worsened by dyspnea. Receive furosemide yesterday. Further dose ordered today. 02/02 Slowly improving, though still a significant fatigue. Diuresis has improved her dyspnea considerably. No chest pain, no nausea or vomiting. Adri removed from her abdominal incision yesterday. Had run of atrial fibrillation RVR overnight, received IV metoprolol, subsequent cardioverted. 02/03 Still with significant rattling cough, difficulty mobilizing secretions. Significantly wheezy this morning as well. Anxiety is improved with as needed alprazolam added during the day. Had a few beat run of wide complex tachycardia overnight, back on her home antiarrhythmic. 02/04 patient seen examined, no acute overnight issues, still has wheezing, using xanax for anxiety, but has no clinical signs of anxiety the wound care nurse noted pt reported to her that she feels depressed with all that has been happening so far. Agreeable to start on anti depressants not working with PT, just likes to be in bed plan for d/c plascencia catheter try to encourage PT wean off steroids, some nausea reported was on steroids, iV ppi started no acute tele events reported 02/05 Patient seen to examined, pt lying in bed does not wish to do much, still has shortness of breath and some cough still wheezing on exam labs stable Pertinent ROS: Denies headache, dizziness Denies chest pain, palpitations cough and shortness of breath present. Denies abdominal pain, nausea or vomiting. - Constitutional Vitals: Vital Signs Temp Pulse Resp BP Pulse Ox 97.2 F 74 16 169/70 98 02/05/18 16:02 02/05/18 16:02 02/05/18 16:02 02/05/18 16:02 02/05/18 16:02 Period Temp Pulse Resp BP Sys/Montiel Pulse Ox Last 24 Hr 96.2 F-97.2 F 67-80 14-24 155-169/70-95 94-100 Intake and Output 02/05/18 02/05/18 02/05/18 05:59 13:59 21:59 Intake Total 160 / 160 520 / 520 60 / 60 Output Total 125 / 125 800 / 800 Balance 35 / 35 -280 / -280 60 / 60 Intake & Output: Intake & Output 02/05/18 02/05/18 02/05/18 05:59 13:59 21:59 Intake Total 160 / 160 520 / 520 60 / 60 Output Total 125 / 125 800 / 800 Balance 35 / 35 -280 / -280 60 / 60 Intake: IV 520 / 520 Potassium Chloride 40 Meq In 520 / 520 Dextrose 5% in Water 500 ml @ 130 mls/hr IV ONCE ONE Rx#: [id number] Oral 160 / 160 60 / 60 Output: Void Amount 800 / 800 Stool 125 / 125 Other: Meal Lunch Percent of Meal Consumed 25% Urine Color Pale # Voids 1 Exam: Constitutional; Afebrile, cooperative, alert, not in distress. Eyes- No icterus, , No periorbital swelling Ears- Ext ear normal, hearing normal to conversation. Neck- Midline trachea, supple Respiratory system: Air Entry equal on both sides elsa wheezing exp, air entry better today than yesterday. CVS- Rate rhythm regular, S1,S2 heard, no gallop, no rub. Abdomen- Soft nontender abdomen, no organomegaly, no tenderness, no guarding or rigidity, [employer]- AOOx3, moving all extremities, no gross focal deficit noted. Psych- Flat affect Medical - PN: Obj Da - Labs CBC & Chem 7: 02/05/18 04:00 02/05/18 04:00 Labs: Abnormal Lab Results 02/05/18 02/05/18 02/04/18 04:00 04:00 03:40 RBC 2.86 L Hgb 8.6 L Hct 26.0 L RDW 16.7 H Gran % 78.8 H Lymph % (Auto) 7.1 L [place] % (Auto) 14.0 H Lymph # (Auto) 0.7 L [place] # (Auto) 1.3 H Seg Neutrophils % Lymphocytes % Nucleated RBCs RBC Morphology Anisocytosis Ovalocytes Potassium 2.7 L* Carbon Dioxide 32 H Glucose 117 H Uric Acid 2.4 L Calcium 8.4 L Phosphorus 2.3 L GGT 158 H 125 H Lactate Dehydrogenase 433 H 413 H Total Protein 5.0 L 5.1 L Albumin 2.8 L 2.9 L Triglycerides 288 H 227 H 02/04/18 02/03/18 02/03/18 03:40 03:30 03:30 RBC 2.85 L 2.78 L Hgb 8.5 L 8.3 L Hct 25.8 L 25.1 L RDW 16.5 H 16.4 H Gran % 85.4 H Lymph % (Auto) 5.5 L [place] % (Auto) Lymph # (Auto) 0.4 L [place] # (Auto) Seg Neutrophils % 89 H Lymphocytes % 3 L Nucleated RBCs 2 H RBC Morphology Abnorm A Anisocytosis 1+ A Ovalocytes Few A Potassium Carbon Dioxide Glucose 126 H Uric Acid 2.1 L Calcium 7.9 L Phosphorus GGT 78 H Lactate Dehydrogenase 354 H Total Protein 5.1 L Albumin 2.8 L Triglycerides 233 H Meds: Medications Acetaminophen/Codeine Phosphate (Tylenol #3) 1 tab PO Q4-6HP PRN PRN Reason: PAIN LEVEL 3-6 Last Admin: 02/05/18 09:49 Dose: 1 tab Albuterol Sulfate (Ventolin) 2.5 mg NEB Q3HP PRN PRN Reason: Shortness Of Breath Last Admin: 02/01/18 15:41 Dose: 2.5 mg Albuterol/Ipratropium (Duoneb) 3 ml NEB Q4HRT ARUN Last Admin: 02/05/18 15:50 Dose: 3 ml Alprazolam (Xanax) 1 mg PO HS [facility] Last Admin: 02/04/18 19:38 Dose: 1 mg Alprazolam (Xanax) 0.5 mg PO TIDP PRN PRN Reason: Anxiety Last Admin: 02/04/18 08:46 Dose: 0.5 mg Amoxicillin/Clavulanate Potassium ([facility]in) [facility] Stop: 02/08/18 08:01 Docusate Sodium (Colace) 100 mg PO BID [facility] Last Admin: 02/05/18 09:43 Dose: 100 mg Furosemide (Lasix) 40 mg IV DAILY [facility] Last Admin: 02/05/18 09:42 Dose: 40 mg Guaifenesin (Robitussin Dm) 5 ml PO Q4HP PRN PRN Reason: Cough Last Admin: 02/03/18 00:25 Dose: 5 ml Heparin Sodium (Porcine) (Heparin) 5,000 unit SQ Q12 [facility] Last Admin: 02/05/18 09:42 Dose: 5,000 unit Heparin Sodium (Porcine) (Heparin Flush) 2 ml IV Q12 [facility] Last Admin: 02/05/18 09:49 Dose: 2 ml Magnesium Sulfate (Magnesium Sulfate) 2 gm in 50 mls @ 50 mls/hr IV UD PRN PRN Reason: MG = or < 1.7 Last Infusion: 01/30/18 10:00 Dose: Infused Iron Carb/Multivit/[place]/Folic Acid (Multivitamin W/Minerals) 1 tab PO DAILY [facility] Last Admin: 02/05/18 09:43 Dose: 1 tab Metoprolol Tartrate (Lopressor) 50 mg PO BID [facility] Last Admin: 02/05/18 09:43 Dose: 50 mg Metoprolol Tartrate (Lopressor) 5 mg IV Q6HP PRN PRN Reason: Tachyarrhythmias Last Admin: 02/02/18 03:04 Dose: 5 mg Montelukast Sodium (Singular) 10 mg PO QPM [facility] Last Admin: 02/04/18 19:37 Dose: 10 mg Nystatin (Nystatin) 500,000 units SSP TID [facility] Last Admin: 02/05/18 16:49 Dose: Not Given Ondansetron HCl (Zofran) 4 mg IV Q4-6HP PRN PRN Reason: Nausea And Vomiting Last Admin: 02/05/18 14:17 Dose: 4 mg Pantoprazole Sodium (Protonix) 40 mg IV QAMAC [facility] Last Admin: 02/05/18 06:48 Dose: 40 mg Ivabradine Hcl [ Corlanor] 5 Mg Tablet 1 dose PO BID [facility] Last Admin: 02/05/18 09:42 Dose: 1 dose Potassium Chloride (Klor-Con) 40 meq PO DAILYP PRN PRN Reason: K+ < 3.5 Last Admin: 02/01/18 08:17 Dose: 40 meq Pred[facility]one [facility]) [facility] Last Admin: 02/05/18 09:43 Dose: 40 mg Senna/Docusate Sodium (Senna Plus Tablet) 1 tab PO [facility] Last Admin: 02/04/18 19:37 Dose: 1 tab Sodium Chloride (Saline Flush) 10 ml IV Q8 [facility] Last Admin: 02/05/18 16:48 Dose: Not Given Trazodone HCl (Desyrel) 50 mg PO [facility] Last Admin: 02/04/18 19:37 Dose: 50 mg Venlafaxine HCl (Effexor Xr) 37.5 mg PO DAILY [facility] Last Admin: 02/05/18 09:42 Dose: 37.5 mg Medical - PN: A/P - Time Spent With Patient Total time spent is greater than 50% in coordination of care (as documented) at patient's floor/unit and/or counseling patient: - Narrative A/P Narrative: 77-year-old with a recent perforated diverticulitis and abdominal surgery and post-op MRSA pneumonia undergoing rehabilitation at assisted home receiving IV antibiotics decompensated with fever and shortness of breath progressing over the last 3 days prior to admission. Febrile illness at assisted facility in the setting of recent peritonitis from perforated diverticulitis. Suspect now secondary to parainfluenza viral infection, and not the presence of a resistant gram- negative nosocomial infection. Parainfluenza virus 2 infection. Respiratory viral panel positive. Suspect this explains her presentation and febrile illness at her skilled facility. Plan: Droplet percussions, supportive care; flutter valve to help mobilize secretions, supplemental oxygen, bronchodilators, diuresis. Recent ruptured diverticulitis with pneumoperitoneum and pneumomediastinum, status post laparotomy with sigmoid colectomy and Lackey's procedure at [facility], . Was on vancomycin and ceftriaxone at SNF, should have fully covered the aerobic pathogens cultured from her abdominal wound. No further fever or leukocytosis after Zosyn stopped and changed back to ceftriaxone. Plan: appreciate ID input, no more IV antibiotics needed. Nosocomial pneumonia with MRSA cultured from sputum at [facility]. Continue with vancomycin, changed back to ceftriaxone from Zosyn, will monitor, now lower suspicion of resistant gram negatives. Plan: s/p abx, Atrial fibrillation rapid ventricular response. Patient is converted to sinus rhythm. Home metoprolol resumed. Also now on home ivabradine (brought in). Plan: Continue telemetry, continue metoprolol and ivabradine. HR stable, intermittent tachycardia noted Sepsis. She had leukopenia, worsened Thursday morning with a white count 1.4, better at 2.1 on recheck. Now normalized. Suspect secondary to viral illness. Plan: Monitor. Anemia. Suspect combination of chronic illness, blood loss from her surgeries. Stable. Plan: Monitor Hypokalemia- Replace K aggressively Abdominal wound from exploratory laparotomy. Status post colostomy. Plan: Wound care, ostomy care. Anxiety disorder. Worsened with dyspnea. Improved Thursday. Plan: Continue with alprazolam and trazodone, cut back on xanax from tid to bidp , try to cut back further. Pt seems to want it but does not have any s/o anxiety. Acute copd exacerbation- right diaphragmatic paralysis, chronic hypoxic respiratory failure on oxygen at home. Plan: Continue bronchodilators, supplemental oxygen, incentive spirometer and steroids, change duonebs from q6 to q4 Full code Prophylaxis heparin Medical - PN: Qual - VTE Deep Vein Thrombosis/Pulmonary Embolism Present on Admission: No
[2018-02-05] MEDS ORDERED: ALPRAZolam 0.5 MG TABLET PO PRN (17:49)
[2018-02-05] MEDS: AMOXICILLIN/POTASSIUM CLAV 875 MG TABLET PO SCH (17:50)
[2018-02-05] MEDS: traZODone HCL 50 MG TABLET PO SCH (21:36)
[2018-02-05] MEDS: MONTELUKAST 10 MG TABLET PO SCH (21:36)
[2018-02-05] MEDS: SENNOSIDES/DOCUSATE SODIUM 1 TAB TABLET PO SCH (21:36)
[2018-02-05] MEDS: ALPRAZolam 0.5 MG TABLET PO SCH (21:37)
[2018-02-06] MEDS: ONDANSETRON 4 MG/2 ML VIAL IV PRN ×2 (00:52→09:44)
[2018-02-06] MEDS: IPRATROPIUM/ALBUTEROL 3 ML AMPUL.NEB NEB SCH ×6 (02:34→23:33)
[2018-02-06] MEDS: ACETAMINOPHEN W/CODEINE #3 1 TABLET PO PRN ×3 (04:30→16:49)
[2018-02-06] MEDS: 0.9 % SODIUM CHLORIDE 10 ML SYRINGE IV SCH ×5 (06:00→20:15)
[2018-02-06 06:37] LABS: Basophils # (Auto) 0 K/mcL (0.0-0.3); Basophils % (Auto) 0.1 % (0.0-2.0); Eosinophils # (Auto) 0 K/mcL (0.0-0.7); Eosinophils % (Auto) 0.4 % (0.0-7.0); Granulocytes % (Auto) 77.8 % (38.0-78.0); Lymphocytes # (Auto) 0.6 K/mcL (1.5-4.8); Lymphocytes % (Auto) 7.2 % (15.5-49.0); Mean Cell Volume 90.6 fL (80.0-100.0); Mean Corpuscular HGB Conc 33.1 g/dL (31.0-36.0); Monocytes # (Auto) 1.2 K/mcL (0.1-0.9); Monocytes % (Auto) 14.5 % (1.0-12.0); Platelet Count 154 K/mcL (140-440); RBC 2.87 M/mcL (4.00-5.20); Red Cell Distribution Width 17.9 % (11.5-14.5)
[2018-02-06 06:59] LABS: ALT/SGPT 34 U/l (0-40); Albumin 2.8 gm/dL (3.2-5.2); Albumin/Globulin Ratio 1.2 (1.0-2.3); Alkaline Phosphatase 77 U/L (39-117); Bilirubin,Direct < 0.2 mg/dL (0.0-0.3); Blood Urea Nitrogen 12 mg/dl (8-23); Gamma Glutamyl Transpeptidase 147 U/L (5-36); Uric Acid 2.8 mg/dL (2.5-8.0)
[2018-02-06] MEDS: AMOXICILLIN/POTASSIUM CLAV 875 MG TABLET PO SCH ×2 (08:07→16:48)
[2018-02-06] MEDS: predniSONE 20 MG TABLET PO SCH (08:07)
[2018-02-06] MEDS: PANTOPRAZOLE 40 MG VIAL IV SCH (08:08)
[2018-02-06] MEDS: MULTIVIT,THER IRON,CA,FA & MIN 1 TABLET PO SCH (09:29)
[2018-02-06] MEDS: NYSTATIN 500,000 UNITS/5 ML ORAL.SUSP SSP SCH ×3 (09:29→20:14)
[2018-02-06] MEDS: VENLAFAXINE 37.5 MG TAB.ER.24H PO SCH (09:29)
[2018-02-06] MEDS: METOPROLOL TARTRATE 50 MG TABLET PO SCH ×2 (09:30→20:11)
[2018-02-06] MEDS: DOCUSATE SODIUM 100 MG CAPSULE PO SCH ×2 (09:30→20:12)
[2018-02-06] MEDS: FUROSEMIDE 40 MG/4 ML VIAL IV SCH (09:30)
[2018-02-06] MEDS: HEPARIN 5,000 UNIT/ML VIAL SQ SCH ×2 (09:31→20:14)
[2018-02-06] MEDS ORDERED: POTASSIUM CHLORIDE 40 MEQ in DEXTROSE 5% IN WATER 500 ML IV ONE (13:24)
[2018-02-06] MEDS ORDERED: DEXTROSE 5%-LR W/20MEQ KCL 1,000 ML IV SCH (13:30)
[2018-02-06] MEDS ORDERED: OXANDROLONE 2.5 MG TABLET PO SCH (13:45)
--- NOTE | 2018-02-06 13:59 | Internal Med Progress Note ---
Medical - PN: Subj Patient information: Note initiated : 02/06/18 at 1:56 pm Service Date, if different from initiated Date: [] Patient: Inessa Torres a 77 y/o F admitted on 01/29/18 for Fever/Nosocomial Pneumonia, Afib w/ RVR, Sepsis. Chief Complaint: [] Interval history: Ms. Torres is a 77 year old F who presents from [facility] with worsening shortness of breath fever along with mental status change weakness that has evolved over the last 72 hours. Patient has been recovering from a recent hospitalization at [place]. Where and she was treated for bowel perforation and underwent colectomy with colostomy. She was transferred for continued rehabilitation. She was also diagnosed with MRSA pneumonia and was continuing Rocephin/vancomycin at the care center. However over the last few days patient has had worsening symptoms as above including shortness of breath and fatigue ,malaise ,fever and shaking chills. She was transferred to [facility] for further evaluation. Initial workup in the ER was consistent with sepsis with fever and leukopenia however source was unclear. She was atrial fibrillation with rapid ventricular rate and was started on diltiazem. She underwent CT scan angiogram without any evidence of PE. CT abdomen was unremarkable. Hospitalist service consulted in light of above. Patient was started on antibiotic coverage. At the Time of evaluation and remembers at present. Patient was lethargic and weak however was able to provide answers to some of the questions and provide review of systems. She denies increasing ostomy output however her abdominal midline incision has not been feeling well. She denies dysuria, night sweats. She denies headache photophobia or chest pain. 01/30 Significant old records reviewed from [facility]. Patient with a history of pelvic fracture about 2 months ago, had returned to home Early January, abdominal pain and diarrhea-->diagnosed and treated for diverticulitis, returned home Forty-eight hours after returning home, recuttent abdominal pain, nausea, no stool, decreased flatus 01/14-Presents to [place], found to have perforated diverticulitis with pneumoperitoneum and pneumomediastinum (tracking from peritoneum) Transferred to [place], underwent laparotomy, sigmoid resection with sigmoidostomy and Martin's procedure Cultures: Abd: Citrobacter freundii; Klebsiella pneumoniae, Enterococcus faecalis, MRSA , Bacteroides fragilis, Clostridium perfringens Sputum: MRSA She was treated with ceftriaxone, metronidazole (and presumptive vancomycin-as is on SNF med list, but not in D/C summary) At [facility], receiving vancomycin and ceftriaxone, do not see metronidazole. Overnight, significant back pain (chronic low back pain with sciatica, worsened in bed), Tx with ketorolac Codeine listed as an allergy, but she confirms she takes Tylenol #3 at home--> allergy list updated, ketorolac stopped Today feels a little better; coughing, but no sputum; some abdominal pain, but unchanged. Cultures NGTD 01/31 Respiratory viral panel has come back positive for parainfluenza virus 2. Patient feels mildly improved today, though still with cough and malaise. She is relieved however that a likely diagnosis for her presentation has been found and that further MRSA has yet to be cultured. Worked with physical therapy, managed to get up to chair today. 02/01 Continues to have significant dyspnea at times. Cough becoming more productive , some difficulty mobilizing secretions. Having significant anxiety, worsened by dyspnea. Receive furosemide yesterday. Further dose ordered today. 02/02 Slowly improving, though still a significant fatigue. Diuresis has improved her dyspnea considerably. No chest pain, no nausea or vomiting. Adri removed from her abdominal incision yesterday. Had run of atrial fibrillation RVR overnight, received IV metoprolol, subsequent cardioverted. 02/03 Still with significant rattling cough, difficulty mobilizing secretions. Significantly wheezy this morning as well. Anxiety is improved with as needed alprazolam added during the day. Had a few beat run of wide complex tachycardia overnight, back on her home antiarrhythmic. 02/04 patient seen examined, no acute overnight issues, still has wheezing, using xanax for anxiety, but has no clinical signs of anxiety the wound care nurse noted pt reported to her that she feels depressed with all that has been happening so far. Agreeable to start on anti depressants not working with PT, just likes to be in bed plan for d/c plascencia catheter try to encourage PT wean off steroids, some nausea reported was on steroids, iV ppi started no acute tele events reported 02/05 Patient seen to examined, pt lying in bed does not wish to do much, still has shortness of breath and some cough still wheezing on exam labs stable 02/06 Pt seen examined, no acute overnight issues, in bed, did not sleep well last night in bed always, not eating much , neg balance over the last few days D/C iv lasix, start on IVF for maintanence get x ray abdomen and chest Discussed with family, need to improve nutrition and patient needs to participate in rehab Discussed trial of oxandrolone to see if this helps. Pertinent ROS: Denies headache, dizziness Denies chest pain, palpitations Denies cough or shortness of breath Denies abdominal pain, nausea present no vomiting. - Constitutional Vitals: Vital Signs Temp Pulse Resp BP Pulse Ox 97.4 F 74 16 164/91 99 02/06/18 12:20 02/06/18 11:38 02/06/18 12:20 02/06/18 12:20 02/06/18 12:20 Period Temp Pulse Resp BP Sys/Montiel Pulse Ox Last 24 Hr 97.0 F-98.7 F 61-84 14-20 146-172/70-91 93-99 Intake and Output 02/05/18 02/06/18 02/06/18 21:59 05:59 13:59 Intake Total 580 / 580 50 / 50 Output Total 0 / 0 325 / 325 Balance 580 / 580 50 / 50 -325 / -325 Weight 166 lb Intake & Output: Intake & Output 02/05/18 02/06/18 02/06/18 21:59 05:59 13:59 Intake Total 580 / 580 50 / 50 Output Total 0 / 0 325 / 325 Balance 580 / 580 50 / 50 -325 / -325 Weight 166 lb Intake: IV 250 / 250 Oral 330 / 330 50 / 50 Output: Void Amount 325 / 325 Stool 0 / 0 Other: Meal Lunch Breakfast Percent of Meal Consumed 25% 3 bites Feeding Ability Needs Supervision Urine Appearance Clear Urine Color Dark [place] Urine Odor Strong Stool Size Small Stool Color Brown Stool Consistency Loose # Voids 1 Exam: Constitutional; Afebrile, cooperative, in bed, drowys, not in distress. Respiratory system: Air Entry equal on both sides, elsa rhonchi, elsa air entry much better today than yesterday. CVS- Rate rhythm regular, S1,S2 heard, no gallop, no rub. Abdomen- Soft nontender abdomen, no organomegaly, no tenderness, no guarding or rigidity, PATENT SEARCHER- AOOx3, moving all extremities, no gross focal deficit noted. generalized weakness present. Medical - PN: Obj Da - Labs CBC & Chem 7: 02/06/18 04:00 02/06/18 04:00 Labs: Abnormal Lab Results 02/06/18 02/06/18 02/05/18 04:00 04:00 04:00 RBC 2.87 L Hgb 8.6 L Hct 26.0 L RDW 17.9 H Gran % Lymph % (Auto) 7.2 L [place] % (Auto) 14.5 H Lymph # (Auto) 0.6 L [place] # (Auto) 1.2 H Potassium 2.7 L* Carbon Dioxide 31 H 32 H Glucose 68 L Uric Acid Calcium 8.2 L Phosphorus 2.3 L GGT 147 H 158 H Lactate Dehydrogenase 378 H 433 H Total Protein 5.1 L 5.0 L Albumin 2.8 L 2.8 L Triglycerides 246 H 288 H 02/05/18 02/04/18 02/04/18 04:00 03:40 03:40 RBC 2.86 L 2.85 L Hgb 8.6 L 8.5 L Hct 26.0 L 25.8 L RDW 16.7 H 16.5 H Gran % 78.8 H 85.4 H Lymph % (Auto) 7.1 L 5.5 L [place] % (Auto) 14.0 H Lymph # (Auto) 0.7 L 0.4 L [place] # (Auto) 1.3 H Potassium Carbon Dioxide Glucose 117 H Uric Acid 2.4 L Calcium 8.4 L Phosphorus GGT 125 H Lactate Dehydrogenase 413 H Total Protein 5.1 L Albumin 2.9 L Triglycerides 227 H Meds: Medications Acetaminophen/Codeine Phosphate (Tylenol #3) 1 tab PO Q4-6HP PRN PRN Reason: PAIN LEVEL 3-6 Last Admin: 02/06/18 12:37 Dose: 1 tab Albuterol Sulfate (Ventolin) 2.5 mg NEB Q3HP PRN PRN Reason: Shortness Of Breath Last Admin: 02/01/18 15:41 Dose: 2.5 mg Albuterol/Ipratropium (Duoneb) 3 ml NEB Q4HRT AR[place] Last Admin: 02/06/18 11:38 Dose: 3 ml Alprazolam (Xanax) 1 mg PO HS [facility] Last Admin: 11/02/18 21:37 Dose: 1 mg Amoxicillin/Clavulanate Potassium ([facility]in) [facility] Stop: 02/08/18 08:01 Last Admin: 02/06/18 08:07 Dose: 875 mg Docusate Sodium (Colace) 100 mg PO BID [facility] Last Admin: 02/06/18 09:30 Dose: 100 mg Guaifenesin (Robitussin Dm) 5 ml PO Q4HP PRN PRN Reason: Cough Last Admin: 02/03/18 00:25 Dose: 5 ml Heparin Sodium (Porcine) (Heparin) 5,000 unit SQ Q12 [facility] Last Admin: 02/06/18 09:31 Dose: 5,000 unit Heparin Sodium (Porcine) (Heparin Flush) 2 ml IV Q12 [facility] Last Admin: 02/06/18 09:33 Dose: 2 ml Magnesium Sulfate (Magnesium Sulfate) 2 gm in 50 mls @ 50 mls/hr IV UD PRN PRN Reason: MG = or < 1.7 Last Infusion: 01/30/18 10:00 Dose: Infused Potassium Chloride 40 meq/ (Dextrose) 520 mls @ 130 mls/hr IV ONCE ONE Stop: 02/06/18 17:23 Potassium Cl/Dextrose/Lact Ringer's (Dextrose 5%-Lr W/20meq Kcl) 1,000 mls @ 75 mls/hr IV .[id number] [facility] Stop: 02/07/18 16:09 Iron Carb/Multivit/Application Spec/Folic Acid (Multivitamin W/Minerals) 1 tab PO DAILY [facility] Last Admin: 02/06/18 09:29 Dose: 1 tab Metoprolol Tartrate (Lopressor) 50 mg PO BID [facility] Last Admin: 02/06/18 09:30 Dose: 50 mg Metoprolol Tartrate (Lopressor) 5 mg IV Q6HP PRN PRN Reason: Tachyarrhythmias Last Admin: 02/02/18 03:04 Dose: 5 mg Montelukast Sodium (Singular) 10 mg PO QPM [facility] Last Admin: 02/05/18 21:36 Dose: 10 mg Nystatin (Nystatin) 500,000 units SSP TID [facility] Last Admin: 02/06/18 09:29 Dose: 500,000 units Ondansetron HCl (Zofran) 4 mg IV Q4-6HP PRN PRN Reason: Nausea And Vomiting Last Admin: 02/06/18 09:44 Dose: 4 mg Oxandrolone (Oxandrin) 5 mg PO BID [facility] Pantoprazole Sodium (Protonix) 40 mg IV QAMAC [facility] Last Admin: 02/06/18 08:08 Dose: 40 mg Ivabradine Hcl [ Corlanor] 5 Mg Tablet 1 dose PO BID [facility] Last Admin: 02/06/18 09:36 Dose: 1 dose Potassium Chloride (Klor-Con) 40 meq PO DAILYP PRN PRN Reason: K+ < 3.5 Last Admin: 02/01/18 08:17 Dose: 40 meq Prednisone (Prednisone) 40 mg PO QAC [facility] Last Admin: 02/06/18 08:07 Dose: 40 mg Senna/Docusate Sodium (Senna Plus Tablet) [address] [facility] Last Admin: 02/05/18 21:36 Dose: 1 tab Sodium Chloride (Saline Flush) 10 ml IV Q8 [facility] Last Admin: 02/06/18 09:30 Dose: 10 ml Trazodone HCl (Desyrel) [address] [facility] Last Admin: 02/05/18 21:36 Dose: 50 mg Venlafaxine HCl (Effexor Xr) 37.5 mg PO DAILY [facility] Last Admin: 02/06/18 09:29 Dose: 37.5 mg Medical - PN: A/P - Time Spent With Patient Total time spent is greater than 50% in coordination of care (as documented) at patient's floor/unit and/or counseling patient: - Narrative A/P Narrative: 77-year-old with a recent perforated diverticulitis and abdominal surgery and post-op MRSA pneumonia undergoing rehabilitation at residential home receiving IV antibiotics decompensated with fever and shortness of breath progressing over the last 3 days prior to admission. Febrile illness at residential facility in the setting of recent peritonitis from perforated diverticulitis. Suspect now secondary to parainfluenza viral infection, and not the presence of a resistant gram- negative nosocomial infection. Parainfluenza virus 2 infection. Respiratory viral panel positive. Suspect this explains her presentation and febrile illness at her skilled facility. Plan: symptomatic management for now. D Poor oral intake- Not feeling well enough to eat, trial of oxyndrolone 5mg bid to see if this helps. I will libralize her diet to regular to encourage intake. Family advised to bring food from outside if patient wishes. Genralized weakness- Etiology? steroid induced myopathy? viral illness related weakness? Depresssion? difficult to gauge at this time, Will continue with aggresive rehab, BID Physical therapy from now. Recent ruptured diverticulitis with pneumoperitoneum and pneumomediastinum, status post laparotomy with sigmoid colectomy and Lackey's procedure at [facility], . Was on vancomycin and ceftriaxone at SNF, should have fully covered the aerobic pathogens cultured from her abdominal wound. No further fever or leukocytosis after Zosyn stopped and changed back to ceftriaxone. Plan: appreciate ID input, no more IV antibiotics needed. Nosocomial pneumonia with MRSA cultured from sputum at [facility]. Continue with vancomycin, changed back to ceftriaxone from Zosyn, will monitor, now lower suspicion of resistant gram negatives. Plan: s/p abx, repeat CXR today Atrial fibrillation rapid ventricular response. Patient is converted to sinus rhythm. Home metoprolol resumed. Also now on home ivabradine (brought in). Plan: y, continue metoprolol and ivabradine. HR stable, intermittent tachycardia noted, xfer to med surg status. Sepsis. She had leukopenia, worsened Thursday morning with a white count 1.4, better at 2.1 on recheck. Now normalized. Suspect secondary to viral illness. Plan: Monitor. Anemia. Suspect combination of chronic illness, blood loss from her surgeries. Stable. Plan: Monitor Hypokalemia- Replace K aggressively Abdominal wound from exploratory laparotomy. Status post colostomy. Plan: Wound care, ostomy care. Anxiety disorder. Worsened with dyspnea. Improved Thursday. Plan: Continue with alprazolam and trazodone,d/c prn xanax as pt is always in bed. Acute copd exacerbation- right diaphragmatic paralysis, chronic hypoxic respiratory failure on oxygen at home. Plan: Continue bronchodilators, supplemental oxygen, incentive spirometer and steroids, change duonebs from q6 to q4, improving clinically Full code Prophylaxis heparin Medical - PN: Qual - VTE Deep Vein Thrombosis/Pulmonary Embolism Present on Admission: No
--- NOTE | 2018-02-06 15:00 | XRay Report ---
CLINICAL INFORMATION: cough COMPARISON: 02/01/2018 FINDINGS: Moderate cardiomegaly is unchanged. Mediastinum and pulmonary vessels are normal. Left PICC line in stable satisfactory position. Right diaphragm remains moderately elevated. Bibasilar atelectasis has completely cleared since yesterday. Tiny bilateral pleural effusions noted IMPRESSION: Interval clearance in bibasilar atelectasis/infiltrate Moderate cardiomegaly stable Interpreted and Authenticated by: Roland Simmons 02/06/18
--- NOTE | 2018-02-06 15:01 | XRay Report ---
CLINICAL INFORMATION: constipation COMPARISON: 04/22/2012 FINDINGS: Moderate stool is present within the colon. Stomach, small and large bowel are normal caliber. No free air or soft tissue mass. Old fracture the right superior pubic ramus seen as before IMPRESSION: No acute disease - moderate colonic stool Interpreted and Authenticated by: Roland Simmons 02/06/18
[2018-02-06] MEDS ORDERED: MAGNESIUM SULFATE 2 GM/50 ML BAG IV PRN (15:54)
[2018-02-06] MEDS ORDERED: POTASSIUM CHLORIDE 20 MEQ PACKET PO PRN (15:54)
[2018-02-06] MEDS ORDERED: ALBUTEROL SULFATE 2.5 MG/3 ML NEBULIZER NEB PRN (15:54)
[2018-02-06] MEDS ORDERED: guaiFENesin/DEXTROMETHORPHAN ORAL SOL PO PRN (15:54)
[2018-02-06] MEDS ORDERED: METOPROLOL TARTRATE 5 MG/5 ML VIAL IV PRN (15:54)
[2018-02-06] MEDS: DEXTROSE 5%-LR W/20MEQ KCL 1,000 ML IV SCH (16:50)
[2018-02-06] MEDS: ALPRAZolam 0.5 MG TABLET PO SCH (20:10)
[2018-02-06] MEDS: SENNOSIDES/DOCUSATE SODIUM 1 TAB TABLET PO SCH (20:11)
[2018-02-06] MEDS: OXANDROLONE 2.5 MG TABLET PO SCH (20:11)
[2018-02-06] MEDS: traZODone HCL 50 MG TABLET PO SCH (20:12)
[2018-02-06] MEDS: MONTELUKAST 10 MG TABLET PO SCH (20:12)
[2018-02-07] MEDS: ACETAMINOPHEN W/CODEINE #3 1 TABLET PO PRN ×4 (01:15→23:27)
[2018-02-07] MEDS: ONDANSETRON 4 MG/2 ML VIAL IV PRN ×2 (01:58→08:21)
[2018-02-07] MEDS: IPRATROPIUM/ALBUTEROL 3 ML AMPUL.NEB NEB SCH ×6 (03:21→22:56)
[2018-02-07] MEDS: 0.9 % SODIUM CHLORIDE 10 ML SYRINGE IV SCH ×4 (04:15→20:18)
[2018-02-07 05:24] LABS: Basophils # (Auto) 0 K/mcL (0.0-0.3); Basophils % (Auto) 0.1 % (0.0-2.0); Eosinophils # (Auto) 0.1 K/mcL (0.0-0.7); Eosinophils % (Auto) 0.9 % (0.0-7.0); Granulocytes % (Auto) 75.2 % (38.0-78.0); Lymphocytes # (Auto) 0.8 K/mcL (1.5-4.8); Mean Cell Volume 91.6 fL (80.0-100.0); Mean Corpuscular HGB Conc 32.5 g/dL (31.0-36.0); Mean Corpuscular Hemoglobin 29.7 pg (26.0-34.0); Monocytes # (Auto) 1.5 K/mcL (0.1-0.9); Monocytes % (Auto) 15.8 % (1.0-12.0); Platelet Count 147 K/mcL (140-440); RBC 2.71 M/mcL (4.00-5.20); Red Cell Distribution Width 18.3 % (11.5-14.5)
[2018-02-07 05:46] LABS: ALT/SGPT 30 U/l (0-40); Albumin 2.4 gm/dL (3.2-5.2); Albumin/Globulin Ratio 1.1 (1.0-2.3); Alkaline Phosphatase 65 U/L (39-117); Bilirubin,Direct < 0.2 mg/dL (0.0-0.3); Blood Urea Nitrogen 8 mg/dl (8-23); Gamma Glutamyl Transpeptidase 121 U/L (5-36); Uric Acid 3.2 mg/dL (2.5-8.0)
[2018-02-07] MEDS: PANTOPRAZOLE 40 MG VIAL IV SCH (07:25)
[2018-02-07] MEDS: predniSONE 20 MG TABLET PO SCH (07:26)
[2018-02-07] MEDS: AMOXICILLIN/POTASSIUM CLAV 875 MG TABLET PO SCH ×2 (07:26→17:12)
[2018-02-07] MEDS: DEXTROSE 5%-LR W/20MEQ KCL 1,000 ML IV SCH (07:27)
[2018-02-07] MEDS: HEPARIN 5,000 UNIT/ML VIAL SQ SCH ×2 (08:54→20:19)
[2018-02-07] MEDS: METOPROLOL TARTRATE 50 MG TABLET PO SCH ×2 (08:54→20:17)
[2018-02-07] MEDS: DOCUSATE SODIUM 100 MG CAPSULE PO SCH ×2 (08:54→20:17)
[2018-02-07] MEDS: MULTIVIT,THER IRON,CA,FA & MIN 1 TABLET PO SCH (08:55)
[2018-02-07] MEDS: NYSTATIN 500,000 UNITS/5 ML ORAL.SUSP SSP SCH ×3 (08:56→20:19)
[2018-02-07] MEDS: OXANDROLONE 2.5 MG TABLET PO SCH ×2 (08:56→20:16)
[2018-02-07] MEDS ORDERED: VENLAFAXINE 37.5 MG TAB.ER.24H PO SCH (09:00)
--- NOTE | 2018-02-07 12:40 | Internal Med Progress Note ---
Medical - PN: Subj Patient information: Note initiated : 02/07/18 at 12:37 pm Service Date, if different from initiated Date: [] Patient: Inessa Torres a 77 y/o F admitted on 01/29/18 for Fever/Nosocomial Pneumonia, Afib w/ RVR, Sepsis. Chief Complaint: [] Interval history: Ms. Torres is a 77 year old F who presents from [facility] with worsening shortness of breath fever along with mental status change weakness that has evolved over the last 72 hours. Patient has been recovering from a recent hospitalization at [facility]. Where and she was treated for bowel perforation and underwent colectomy with colostomy. She was transferred for continued rehabilitation. She was also diagnosed with MRSA pneumonia and was continuing Rocephin/vancomycin at the care center. However over the last few days patient has had worsening symptoms as above including shortness of breath and fatigue ,malaise ,fever and shaking chills. She was transferred to [facility] for further evaluation. Initial workup in the ER was consistent with sepsis with fever and leukopenia however source was unclear. She was atrial fibrillation with rapid ventricular rate and was started on diltiazem. She underwent CT scan angiogram without any evidence of PE. CT abdomen was unremarkable. Hospitalist service consulted in light of above. Patient was started on antibiotic coverage. At the Time of evaluation and remembers at present. Patient was lethargic and weak however was able to provide answers to some of the questions and provide review of systems. She denies increasing ostomy output however her abdominal midline incision has not been feeling well. She denies dysuria, night sweats. She denies headache photophobia or chest pain. 01/30 Significant old records reviewed from [facility]. Patient with a history of pelvic fracture about 2 months ago, had returned to home Early January, abdominal pain and diarrhea-->diagnosed and treated for diverticulitis, returned home Forty-eight hours after returning home, recuttent abdominal pain, nausea, no stool, decreased flatus 01/14-Presents to [place], found to have perforated diverticulitis with pneumoperitoneum and pneumomediastinum (tracking from peritoneum) Transferred to [place], underwent laparotomy, sigmoid resection with sigmoidostomy and Martin's procedure Cultures: Abd: Citrobacter freundii; Klebsiella pneumoniae, Enterococcus faecalis, MRSA , Bacteroides fragilis, Clostridium perfringens Sputum: MRSA She was treated with ceftriaxone, metronidazole (and presumptive vancomycin-as is on SNF med list, but not in D/C summary) At [facility], receiving vancomycin and ceftriaxone, do not see metronidazole. Overnight, significant back pain (chronic low back pain with sciatica, worsened in bed), Tx with ketorolac Codeine listed as an allergy, but she confirms she takes Tylenol #3 at home--> allergy list updated, ketorolac stopped Today feels a little better; coughing, but no sputum; some abdominal pain, but unchanged. Cultures NGTD 01/31 Respiratory viral panel has come back positive for parainfluenza virus 2. Patient feels mildly improved today, though still with cough and malaise. She is relieved however that a likely diagnosis for her presentation has been found and that further MRSA has yet to be cultured. Worked with physical therapy, managed to get up to chair today. 02/01 Continues to have significant dyspnea at times. Cough becoming more productive , some difficulty mobilizing secretions. Having significant anxiety, worsened by dyspnea. Receive furosemide yesterday. Further dose ordered today. 02/02 Slowly improving, though still a significant fatigue. Diuresis has improved her dyspnea considerably. No chest pain, no nausea or vomiting. Adri removed from her abdominal incision yesterday. Had run of atrial fibrillation RVR overnight, received IV metoprolol, subsequent cardioverted. 02/03 Still with significant rattling cough, difficulty mobilizing secretions. Significantly wheezy this morning as well. Anxiety is improved with as needed alprazolam added during the day. Had a few beat run of wide complex tachycardia overnight, back on her home antiarrhythmic. 02/04 patient seen examined, no acute overnight issues, still has wheezing, using xanax for anxiety, but has no clinical signs of anxiety the wound care nurse noted pt reported to her that she feels depressed with all that has been happening so far. Agreeable to start on anti depressants not working with PT, just likes to be in bed plan for d/c plascencia catheter try to encourage PT wean off steroids, some nausea reported was on steroids, iV ppi started no acute tele events reported 02/05 Patient seen to examined, pt lying in bed does not wish to do much, still has shortness of breath and some cough still wheezing on exam labs stable 02/06 Pt seen examined, no acute overnight issues, in bed, did not sleep well last night in bed always, not eating much , neg balance over the last few days D/C iv lasix, start on IVF for maintanence get x ray abdomen and chest Discussed with family, need to improve nutrition and patient needs to participate in rehab Discussed trial of oxandrolone to see if this helps. 02/07 Patient seen and examined, no acute overnight events. Still not eating much. But she was much more awake today and was participating in conversation. Exam shows still having bilateral wheezing. Patient does not really want to continue at this point with the treatment. When I offered palliative care she seemed interested. I will touch base with case management and see if he can have a family conference and possible palliative care for the patient. The patient has been through a lot voer the last few years. Pertinent ROS: Denies headache, dizziness Denies chest pain, palpitations Denies cough , shortess of breath present. Denies abdominal pain, nausea or vomiting. - Constitutional Vitals: Vital Signs Temp Pulse Resp BP Pulse Ox 97.2 F 67 16 122/80 98 02/07/18 12:16 02/07/18 12:00 02/07/18 12:16 02/07/18 12:16 02/07/18 12:16 Period Temp Pulse Resp BP Sys/Montiel Pulse Ox Last 24 Hr 97.1 F-98.6 F 65-86 14-20 122-168/72-96 96-98 Intake and Output 02/06/18 02/07/18 02/07/18 22:59 05:59 13:59 Intake Total 996 / 996 Balance 996 / 996 Weight Intake & Output: Intake & Output 02/06/18 02/07/18 02/07/18 22:59 05:59 13:59 Intake Total 996 / 996 Balance 996 / 996 Weight Intake: IV 996 / 996 Oral Other: Meal Breakfast Percent of Meal Consumed 75% Feeding Ability Assist with Tray Set Up Urine Color Urine Odor # Voids Exam: Constitutional; Afebrile, cooperative, alert, not in distress. Respiratory system: Air Entry equal on both sides, No crackles, elsa exp wheeze present, CVS- Rate rhythm regular, S1,S2 heard, no gallop, no rub. Abdomen- Soft nontender abdomen, no organomegaly, no tenderness, no guarding or rigidity, DANCE [employer]- AOOx3, moving all extremities, no gross focal deficit noted. Medical - PN: Obj Da - Labs CBC & Chem 7: 02/07/18 04:20 02/07/18 04:20 Labs: Abnormal Lab Results 02/07/18 02/07/18 02/06/18 04:20 04:20 04:00 RBC 2.71 L Hgb 8.1 L Hct 24.8 L RDW 18.3 H Gran % Lymph % (Auto) 8.0 L Lake % (Auto) 15.8 H Lymph # (Auto) 0.8 L Lake # (Auto) 1.5 H Potassium Carbon Dioxide 32 H 31 H Glucose 68 L Calcium 8.0 L 8.2 L Phosphorus 2.4 L GGT 121 H 147 H Lactate Dehydrogenase 272 H 378 H Total Protein 4.6 L 5.1 L Albumin 2.4 L 2.8 L Triglycerides 156 H 246 H 02/06/18 02/05/18 02/05/18 04:00 04:00 04:00 RBC 2.87 L 2.86 L Hgb 8.6 L 8.6 L Hct 26.0 L 26.0 L RDW 17.9 H 16.7 H Gran % 78.8 H Lymph % (Auto) 7.2 L 7.1 L Lake % (Auto) 14.5 H 14.0 H Lymph # (Auto) 0.6 L 0.7 L Lake # (Auto) 1.2 H 1.3 H Potassium 2.7 L* Carbon Dioxide 32 H Glucose Calcium Phosphorus 2.3 L GGT 158 H Lactate Dehydrogenase 433 H Total Protein 5.0 L Albumin 2.8 L Triglycerides 288 H Meds: Medications Acetaminophen/Codeine Phosphate (Tylenol #3) 1 tab PO Q4-6HP PRN PRN Reason: PAIN LEVEL 3-6 Last Admin: 02/07/18 08:54 Dose: 1 tab Albuterol Sulfate (Ventolin) 2.5 mg NEB Q3HP PRN PRN Reason: Shortness Of Breath Albuterol/Ipratropium (Duoneb) 3 ml NEB Q4HRT [facility] Last Admin: 02/07/18 11:58 Dose: 3 ml Alprazolam (Xanax) 1 mg PO HS [facility] Last Admin: 02/06/18 20:10 Dose: 1 mg Amoxicillin/Clavulanate Pot[facility] ([facility]in) [facility] Stop: 02/08/18 08:01 Last Admin: 02/07/18 07:26 Dose: 875 mg Docusate Sodium (Colace) 100 mg PO BID [facility] Last Admin: 02/07/18 08:54 Dose: 100 mg Guaifenesin (Robitussin Dm) 5 ml PO Q4HP PRN PRN Reason: Cough Heparin Sodium (Porcine) (Heparin) 5,000 unit SQ Q12 [facility] Last Admin: 02/07/18 08:54 Dose: 5,000 unit Heparin Sodium (Porcine) (Heparin Flush) 2 ml IV Q12 [facility] Last Admin: 02/07/18 08:56 Dose: 2 ml Potassium Cl/Dextrose/Lact Ringer's (Dextrose 5%-Lr W/20meq Kcl) 1,000 mls @ 75 mls/hr IV .[id number] [facility] Stop: 02/07/18 16:09 Last Admin: 02/07/18 07:27 Dose: 75 mls/hr Magnesium Sulfate (Magnesium Sulfate) 2 gm in 50 mls @ 50 mls/hr IV UD PRN PRN Reason: MG = or < 1.7 Potassium Chloride 40 meq/ (Dextrose) 520 mls @ 130 mls/hr IV ONCE ONE Stop: 02/07/18 16:59 Iron Carb/Multivit/Flagger/Folic Acid (Multivitamin W/Minerals) 1 tab PO DAILY [facility] Last Admin: 02/07/18 08:55 Dose: 1 tab Metoprolol Tartrate (Lopressor) 5 mg IV Q6HP PRN PRN Reason: Tachyarrhythmias Metoprolol Tartrate (Lopressor) 50 mg PO BID [facility] Last Admin: 02/07/18 08:54 Dose: 50 mg Montelukast Sodium (Singular) 10 mg PO QPM [facility] Last Admin: 02/06/18 20:12 Dose: 10 mg Nystatin (Nystatin) 500,000 units SSP TID [facility] Last Admin: 02/07/18 08:56 Dose: 500,000 units Ondansetron HCl (Zofran) 4 mg IV Q4-6HP PRN PRN Reason: Nausea And Vomiting Last Admin: 02/07/18 08:21 Dose: 4 mg Oxandrolone (Oxandrin) 5 mg PO BID [facility] Last Admin: 02/07/18 08:56 Dose: 5 mg Pantoprazole Sodium (Protonix) 40 mg IV QAMAC [facility] Last Admin: 02/07/18 07:25 Dose: 40 mg Ivabradine Hcl [ Corlanor] 5 Mg Tablet 1 dose PO BID [facility] Last Admin: 02/07/18 08:55 Dose: 1 dose Potassium Chloride (Klor-Con) 40 meq PO DAILYP PRN PRN Reason: K+ < 3.5 Prednisone (Prednisone) 40 mg PO [facility] Last Admin: 02/07/18 07:26 Dose: 40 mg Senna/Docusate Sodium (Senna Plus Tablet) 1 tab PO [facility] Last Admin: 02/06/18 20:11 Dose: 1 tab Sodium Chloride (Saline Flush) 10 ml IV Q8 [facility] Last Admin: 02/07/18 04:15 Dose: 10 ml Trazodone HCl (Desyrel) 50 mg PO [facility] Last Admin: 02/06/18 20:12 Dose: 50 mg Venlafaxine HCl (Effexor Xr) 37.5 mg PO DAILY [facility] Last Admin: 02/07/18 08:55 Dose: 37.5 mg Medical - PN: A/P - Time Spent With Patient Total time spent is greater than 50% in coordination of care (as documented) at patient's floor/unit and/or counseling patient: - Narrative A/P Narrative: 77-year-old with a recent perforated diverticulitis and abdominal surgery and post-op MRSA pneumonia undergoing [facility] receiving IV antibiotics decompensated with fever and shortness of breath progressing over the last 3 days prior to admission. Febrile illness at correction facility in the setting of recent peritonitis from perforated diverticulitis. Suspect now secondary to parainfluenza viral infection, and not the presence of a resistant gram- negative nosocomial infection. Parainfluenza virus 2 infection. Respiratory viral panel positive. Suspect this explains her presentation and febrile illness at her skilled facility. Plan: symptomatic management for now. D Poor oral intake- Not feeling well enough to eat, trial of oxandrolone 5mg bid to see if this helps. I will liberalize her diet to regular to encourage intake. Family advised to bring food from outside if patient wishes. Generalized weakness- Etiology? steroid induced myopathy? viral illness related weakness? Depresssion? difficult to gauge at this time, Will continue with aggressive rehab, BID Physical therapy from now. Recent ruptured diverticulitis with pneumoperitoneum and pneumomediastinum, status post laparotomy with sigmoid colectomy and Lackey's procedure at [facility], . Was on vancomycin and ceftriaxone at SNF, should have fully covered the aerobic pathogens cultured from her abdominal wound. No further fever or leukocytosis after Zosyn stopped and changed back to ceftriaxone. Plan: appreciate ID input, no more IV antibiotics needed. Nosocomial pneumonia with MRSA cultured from sputum at [facility]. Continue with vancomycin, changed back to ceftriaxone from Zosyn, will monitor, now lower suspicion of resistant gram negatives. Plan: s/p abx, repeat CXR today clear Atrial fibrillation rapid ventricular response. Patient is converted to sinus rhythm. Home metoprolol resumed. Also now on home ivabradine (brought in). Plan: y, continue metoprolol and ivabradine. HR stable, intermittent tachycardia noted, xfer to med surg status. Sepsis. She had leukopenia, worsened Thursday morning with a white count 1.4, better at 2.1 on recheck. Now normalized. Suspect secondary to viral illness. Plan: Monitor. Anemia. Suspect combination of chronic illness, blood loss from her surgeries. Stable, slight drop to 8.1 Plan: Monitor Hypokalemia- Replace K aggressively Abdominal wound from exploratory laparotomy. Status post colostomy. Plan: Wound care, ostomy care. Anxiety disorder. Worsened with dyspnea. Improved Thursday. Plan: Continue with alprazolam and trazodone,d/c prn xanax as pt is always in bed. Acute copd exacerbation- right diaphragmatic paralysis, chronic hypoxic respiratory failure on oxygen at home. Plan: Continue bronchodilators, supplemental oxygen, incentive spirometer and steroids, change duonebs from q6 to q4, improving clinically Patient lacks much motivation to do much, wishes for palliative care, will see if we can have family conference. Full code Prophylaxis heparin Medical - PN: Qual - VTE Deep Vein Thrombosis/Pulmonary Embolism Present on Admission: No
[2018-02-07] MEDS ORDERED: POTASSIUM CHLORIDE 40 MEQ in DEXTROSE 5% IN WATER 500 ML IV ONE (13:00)
[2018-02-07] MEDS: MONTELUKAST 10 MG TABLET PO SCH (20:17)
[2018-02-07] MEDS: SENNOSIDES/DOCUSATE SODIUM 1 TAB TABLET PO SCH (20:17)
[2018-02-07] MEDS: ALPRAZolam 0.5 MG TABLET PO SCH (20:17)
[2018-02-07] MEDS: traZODone HCL 50 MG TABLET PO SCH (20:17)
[2018-02-08] MEDS: IPRATROPIUM/ALBUTEROL 3 ML AMPUL.NEB NEB SCH ×2 (03:07→07:25)
[2018-02-08] MEDS: 0.9 % SODIUM CHLORIDE 10 ML SYRINGE IV SCH (04:15)
[2018-02-08 06:38] LABS: Basophils # (Auto) 0 K/mcL (0.0-0.3); Basophils % (Auto) 0.2 % (0.0-2.0); Eosinophils # (Auto) 0 K/mcL (0.0-0.7); Eosinophils % (Auto) 0.4 % (0.0-7.0); Lymphocytes # (Auto) 0.7 K/mcL (1.5-4.8); Lymphocytes % (Auto) 9.3 % (15.5-49.0); Mean Cell Volume 91.3 fL (80.0-100.0); Mean Corpuscular HGB Conc 32.9 g/dL (31.0-36.0); Mean Corpuscular Hemoglobin 30.1 pg (26.0-34.0); Monocytes # (Auto) 1.3 K/mcL (0.1-0.9); Monocytes % (Auto) 18.1 % (1.0-12.0); Platelet Count 140 K/mcL (140-440); Red Cell Distribution Width 18.6 % (11.5-14.5)
[2018-02-08 07:02] LABS: ALT/SGPT 28 U/l (0-40); Albumin 2.7 gm/dL (3.2-5.2); Albumin/Globulin Ratio 1.3 (1.0-2.3); Alkaline Phosphatase 64 U/L (39-117); Bilirubin,Direct < 0.2 mg/dL (0.0-0.3); Blood Urea Nitrogen 5 mg/dl (8-23); Gamma Glutamyl Transpeptidase 129 U/L (5-36); Uric Acid 3.2 mg/dL (2.5-8.0)
[2018-02-08] MEDS: PANTOPRAZOLE 40 MG VIAL IV SCH (07:09)
[2018-02-08] MEDS: ONDANSETRON 4 MG/2 ML VIAL IV PRN ×2 (08:12→12:27)
[2018-02-08] MEDS ORDERED: VENLAFAXINE 75 MG CAP.XL.24H PO SCH (09:00)
[2018-02-08 09:16] LABS: Retic Absolute 3.3 % (0.5-1.5)
[2018-02-08] MEDS: AMOXICILLIN/POTASSIUM CLAV 875 MG TABLET PO SCH (09:26)
[2018-02-08] MEDS: HEPARIN 5,000 UNIT/ML VIAL SQ SCH (09:26)
[2018-02-08] MEDS: predniSONE 20 MG TABLET PO SCH (09:26)
[2018-02-08] MEDS: ACETAMINOPHEN W/CODEINE #3 1 TABLET PO PRN ×2 (09:27→13:04)
[2018-02-08] MEDS: NYSTATIN 500,000 UNITS/5 ML ORAL.SUSP SSP SCH (09:27)
[2018-02-08] MEDS: METOPROLOL TARTRATE 50 MG TABLET PO SCH (09:27)
[2018-02-08] MEDS: OXANDROLONE 2.5 MG TABLET PO SCH (09:28)
[2018-02-08] MEDS: MULTIVIT,THER IRON,CA,FA & MIN 1 TABLET PO SCH (09:28)
[2018-02-08] MEDS: DOCUSATE SODIUM 100 MG CAPSULE PO SCH (09:28)
[2018-02-08 09:44] LABS: Ferritin 404.6 ng/ml (30-400)
--- NOTE | 2018-02-08 11:41 | Discharge Summary ---
Medical - DS: Prov Patient information: Note initiated : 02/08/18 at 11:27 am Service Date, if different from initiated Date: [] Patient: Inessa Torres 77 y/o F admitted on 01/29/18 for Fever/Nosocomial Pneumonia, Afib w/ RVR, Sepsis. Chief Complaint: [] Date of admission: 01/29/18 09:30 Discharge date: 02/08/18 Primary care physician: Ashley Azar Consults: 01/29/18 Consult to Physician [CONS] Stat Comment: Consulting Provider: Nick Sams Reason For Exam: Physician to Consult 02/04/18 10:03 Consult to Infectious Disease [CONS] Routine Comment: duration of antibiotics Consulting Provider: Akash Bass Reason For Exam: Physician to Consult Discharging clinician: Charleen Bateman Medical - DS: Meds - Discharge Medications Prescriptions: Acetaminophen W/Codeine #3 [Tylenol #3] 1 tab PO Q4-6HP PRN #30 tab PRN Reason: moderate to severe pain ALPRAZolam [Xanax] 1 mg PO HSP PRN #10 tab PRN Reason: Anxiety Amoxicillin/Potassium Clav [Augmentin] 875 mg PO Q12H #4 tab Oxandrolone [Oxandrin] 5 mg PO BID #120 tab Potassium Chloride 10 meq PO DAILY #30 capsule.er Active and Home Medications: Home Medications ALPRAZolam [Xanax] 1 mg PO HS 05/08/15 [History Confirmed 01/29/18 Last Taken ] Cholecalciferol (Vitamin D3) [Vitamin D-3] 5,000 unit PO QDAY 05/08/15 [History Confirmed 01/29/18 Last Taken 05/10/15] albuterol sulfate HFA 90 mcg/actuation aerosol inhaler 2 puff INHALATION QID PRN g 06/18/17 [History Confirmed 01/29/18 Last Taken Unknown] ipratropium bromide 0.02 % solution for inhalation 0.5 mg INHALATION Q6H PRN ml 09/24/17 [History Confirmed 01/29/18 Last Taken Unknown] ivabradine 5 mg tablet 5 mg PO BID 09/24/17 [History Confirmed 01/29/18 Last Taken Unknown] montelukast 10 mg tablet 10 mg PO QPM 09/24/17 [History Confirmed 01/29/18 Last Taken Unknown] trazodone 50 mg tablet 50 mg PO HS tab 09/24/17 [History Confirmed 01/29/18 Last Taken Unknown] Ibuprofen [Ibu] 600 mg PO ONCE PRN 01/29/18 [History Confirmed 01/29/18 Last Taken Unknown] Metoprolol Tartrate 50 mg PO BID 01/29/18 [History Confirmed 01/29/18 Last Taken 01/28/18] Ondansetron HCl [Zofran ODT] 4 mg SL Q4-6HP PRN 01/29/18 [History Confirmed Last Taken Unknown] Pantoprazole [Protonix] 40 mg PO ONCE 01/29/18 [History Confirmed 01/29/18 Last Taken Unknown] predniSONE [Prednisone] 12.5 mg PO ONCE 01/29/18 [History Confirmed 01/29/18 Last Taken Unknown] Medical - DS: Hosp Hospital course: Ms. Torres is a 77 year old F who presents from [facility] with worsening shortness of breath fever along with mental status change weakness that has evolved over the last 72 hours. Patient has been recovering from a recent hospitalization at [place] and she was treated for bowel perforation and underwent colectomy with colostomy. She was transferred for continued rehabilitation. She was also diagnosed with MRSA pneumonia and was continuing Rocephin/vancomycin at the care center. However over the last few days patient has had worsening symptoms as above including shortness of breath and fatigue ,malaise ,fever and shaking chills. She was transferred to [facility] for further evaluation. Initial workup in the ER was consistent with sepsis with fever and leukopenia however source was unclear. She was atrial fibrillation with rapid ventricular rate and was started on diltiazem. She underwent CT scan angiogram without any evidence of PE. CT abdomen was unremarkable. Hospitalist service consulted in light of above. Patient was started on antibiotic coverage. At the Time of evaluation and remembers at present. Patient was lethargic and weak however was able to provide answers to some of the questions and provide review of systems. She denies increasing ostomy output however her abdominal midline incision has not been feeling well. She denies dysuria, night sweats. She denies headache photophobia or chest pain. 01/30 Significant old records reviewed from [facility]. Patient with a history of pelvic fracture about 2 months ago, had returned to home Early January, abdominal pain and diarrhea-->diagnosed and treated for diverticulitis, returned home Forty-eight hours after returning home, recuttent abdominal pain, nausea, no stool, decreased flatus 01/14-Presents to [place], found to have perforated diverticulitis with pneumoperitoneum and pneumomediastinum (tracking from peritoneum) Transferred to [place], underwent laparotomy, sigmoid resection with sigmoidostomy and Martin's procedure Cultures: Abd: Citrobacter freundii; Klebsiella pneumoniae, Enterococcus faecalis, MRSA , Bacteroides fragilis, Clostridium perfringens Sputum: MRSA She was treated with ceftriaxone, metronidazole (and presumptive vancomycin-as is on SNF med list, but not in D/C summary) At [facility], receiving vancomycin and ceftriaxone, do not see metronidazole. Overnight, significant back pain (chronic low back pain with sciatica, worsened in bed), Tx with ketorolac Codeine listed as an allergy, but she confirms she takes Tylenol #3 at home--> allergy list updated, ketorolac stopped Today feels a little better; coughing, but no sputum; some abdominal pain, but unchanged. Cultures NGTD 01/31 Respiratory viral panel has come back positive for parainfluenza virus 2. Patient feels mildly improved today, though still with cough and malaise. She is relieved however that a likely diagnosis for her presentation has been found and that further MRSA has yet to be cultured. Worked with physical therapy, managed to get up to chair today. 02/01 Continues to have significant dyspnea at times. Cough becoming more productive , some difficulty mobilizing secretions. Having significant anxiety, worsened by dyspnea. Receive furosemide yesterday. Further dose ordered today. 02/02 Slowly improving, though still a significant fatigue. Diuresis has improved her dyspnea considerably. No chest pain, no nausea or vomiting. [place]ero removed from her abdominal incision yesterday. Had run of atrial fibrillation RVR overnight, received IV metoprolol, subsequent cardioverted. 02/03 Still with significant rattling cough, difficulty mobilizing secretions. Significantly wheezy this morning as well. Anxiety is improved with as needed alprazolam added during the day. Had a few beat run of wide complex tachycardia overnight, back on her home antiarrhythmic. 02/04 patient seen examined, no acute overnight issues, still has wheezing, using xanax for anxiety, but has no clinical signs of anxiety the wound care nurse noted pt reported to her that she feels depressed with all that has been happening so far. Agreeable to start on anti depressants not working with PT, just likes to be in bed plan for d/c plascencia catheter try to encourage PT wean off steroids, some nausea reported was on steroids, iV ppi started no acute tele events reported 02/05 Patient seen to examined, pt lying in bed does not wish to do much, still has shortness of breath and some cough still wheezing on exam labs stable 02/06 Pt seen examined, no acute overnight issues, in bed, did not sleep well last night in bed always, not eating much , neg balance over the last few days D/C iv lasix, start on IVF for maintenance get x ray abdomen and chest Discussed with family, need to improve nutrition and patient needs to participate in rehab Discussed trial of oxandrolone to see if this helps. 02/07 Patient seen and examined, no acute overnight events. Still not eating much. But she was much more awake today and was participating in conversation. Exam shows still having bilateral wheezing. Patient does not really want to continue at this point with the treatment. When I offered palliative care she seemed interested. I will touch base with case management and see if he can have a family conference and possible palliative care for the patient. The patient has been through a lot voer the last few years. 02/08 Patient seen examined no acute overnight issues, did not eat much yesterday, still has shortness of breath, nausea is better. Still wishes palliative are. Discussed same with Daughter, who feels she is depressed and would do better in [place] with her family. Explained the overall poor prognosis if she does not increase po intake. They verbalized understanding. In Summary Parainfluenzae Infection- Clinically resolved. No longer has fever, runny nose. Still has cough and shortness of breath. Acute copd exacerbation- right diaphragmatic paralysis, chronic hypoxic respiratory failure on oxygen at home. Plan: Pt air entry much better today at the time of discharge, her SOB will not go away completely as she has Right Diaphramatic paralysis. She is being discharged on Po prednisone and q4h duonebs. To taper prednisone to home dose of 10mg daily. 40mg for 5 more days, then 20mg for 5 days, then 10mg from there and slow taper. Poor oral intake- Not feeling well enough to eat, trial of oxandrolone 5mg bid to see if this helps, if no response in 4 weeks would advise to stop. She is also being started on PPI to see if this helps I am not placing any dietary restrictions at this time. IF she does not incase her oral I will liberalize her diet to regular to encourage intake. Generalized weakness- Etiology? steroid induced myopathy? viral illness related weakness? Depression? difficult to gauge at this time, Will continue with aggressive rehab. Recent ruptured diverticulitis with pneumoperitoneum and pneumomediastinum, status post laparotomy with sigmoid colectomy and Lackey's procedure at [facility], . Was on vancomycin and ceftriaxone at SNF, should have fully covered the aerobic pathogens cultured from her abdominal wound. No further fever or leukocytosis. Seen by ID here, no need for further IV antibiotics. To follow up with Surgery at [facility] as previously scheduled. Nosocomial pneumonia with MRSA cultured from sputum at [facility]. - s/p Treatment, resolved Atrial fibrillation rapid ventricular response. Patient is converted to sinus rhythm. Home metoprolol resumed. Also now on home ivabradine (brought in). Patient to continue home medications. I am not suer why pt is not on Anticoagulation, this will need to be addressed by the PCP. Sepsis. Resolved. Anemia. Suspect combination of chronic illness, blood loss from her surgeries. Stable, normal Iron, TSAt levels, b12 and folate normal. Hypokalemia- K is stable at discharge, but pt has shown propensity to have low values, will discharge on oral KCL 10meq daily Abdominal wound from exploratory laparotomy. Status post colostomy. Plan: Wound care, ostomy care. Oral Thrush- On nysatain, will continue for 5 more days. Anxiety disorder. Continue with alprazolam and trazodone,d/c prn xanax as pt is always in bed. Depression- Started on effexor, initially 37.5 x 2 days, now 75mg, can be uptitrated based on response. This should help with anxiety too. Patient lacks much motivation to do much, wishes for palliative care, I spoke with the patients daughter who feels pt will do well after discharge and is in [place], as she will be with friends and family there. Discharge diagnosis: Parainfluenzae, AFib with RVR, HCAP PNA - Time Spent with Patient Total time spent providing and/or coordinating discharge services: Greater than 30 minutes Medical - DS: Exam - Constitutional Vitals: Vital Signs Temp Pulse Pulse Resp BP Pulse Ox 02/08/18 08:00 96 02/08/18 07:49 92 H 20 94 02/08/18 07:25 92 H 20 02/08/18 07:00 98.2 F 16 152/89 97 02/08/18 03:14 19 L 17 02/08/18 03:13 98.7 F 66 17 170/78 98 02/08/18 00:57 19 180/80 98 02/07/18 23:48 97.4 F 68 18 182/88 99 02/07/18 22:57 62 16 02/07/18 19:41 98.2 F 78 18 172/90 98 02/07/18 18:57 76 18 98 02/07/18 18:54 75 18 02/07/18 16:31 97.3 F 20 186/78 98 02/07/18 15:45 71 20 02/07/18 12:16 97.2 F 16 122/80 98 02/07/18 12:00 67 18 98 Intake and Output 02/07/18 02/08/18 02/08/18 21:59 05:59 13:59 Intake Total 550 / 550 1050 / 1050 Output Total 825 / 825 Balance -275 / -275 1050 / 1050 Intake: IV 1000 / 1000 Oral 550 / 550 50 / 50 Output: Void Amount 575 / 575 # of times incontinent of urine 0 / 0 Stool 250 / 250 Other: Meal Dinner Percent of Meal Consumed 25% Feeding Ability Assist with Tray Set Up Urine Appearance Clear Urine Color Bright Yellow Urine Odor Normal Stool Consistency Soft Loose # Voids 1 Weight 169 lb Additional comments: Constitutional; Afebrile, cooperative, alert, not in distress. Respiratory system: Air Entry equal on both sides,very mild elsa exp wheezing, much improved air entry and wheezing from 3-4 days ago CVS- Rate rhythm regular, S1,S2 heard, no gallop, no rub. Abdomen- Soft nontender abdomen, no organomegaly, no tenderness, no guarding or rigidity, TEA ROOM MANAGER- AOOx3, moving all extremities, no gross focal deficit noted. Medical - DS: Data Labs on day of discharge: Labs from last 24 hours 02/08/18 02/08/18 02/08/18 11:10 09:20 09:20 WBC RBC Hgb 8.7 L Hct 26.6 L MCV MCH MCHC RDW Plt Count MPV Gran % Lymph % (Auto) [place] % (Auto) Eos % (Auto) Baso % (Auto) Gran # Lymph # (Auto) [place] # (Auto) Eos # (Auto) Baso # (Auto) Smear Path Review Absolute Retic Haptoglobin Sodium Potassium Chloride Carbon Dioxide Anion Gap BUN Creatinine GFR Calculation Glucose Uric Acid Calcium Phosphorus Magnesium Iron TIBC Unsat Iron Binding Transferrin % Sat Ferritin Total Bilirubin Direct Bilirubin GGT AST ALT Alkaline Phosphatase Lactate Dehydrogenase Total Protein Albumin Globulin Albumin/Globulin Ratio Triglycerides Vitamin B12 Folate TSH 2.91 Stool Occult Bld Immuno Pending 02/08/18 02/08/18 02/08/18 08:10 08:10 08:10 WBC RBC Hgb Hct MCV MCH MCHC RDW Plt Count MPV Gran % Lymph % (Auto) [place] % (Auto) Eos % (Auto) Baso % (Auto) Gran # Lymph # (Auto) [place] # (Auto) Eos # (Auto) Baso # (Auto) Smear Path Review Absolute Retic 3.3 H Haptoglobin 327 H Sodium Potassium Chloride Carbon Dioxide Anion Gap BUN Creatinine GFR Calculation Glucose Uric Acid Calcium Phosphorus Magnesium Iron 84 TIBC 226 L Unsat Iron Binding 142 Transferrin % Sat 37 Ferritin 404.6 H Total Bilirubin Direct Bilirubin GGT AST ALT Alkaline Phosphatase Lactate Dehydrogenase Total Protein Albumin Globulin Albumin/Globulin Ratio Triglycerides Vitamin B12 1611 H Folate 14.5 TSH Stool Occult Bld Immuno 02/08/18 02/08/18 04:00 04:00 WBC 7.4 RBC 2.60 L Hgb 7.8 L Hct 23.8 L MCV 91.3 MCH 30.1 MCHC 32.9 RDW 18.6 H Plt Count 140 MPV 8.9 Gran % 72.0 Lymph % (Auto) 9.3 L [place] % (Auto) 18.1 H Eos % (Auto) 0.4 Baso % (Auto) 0.2 Gran # 5.3 Lymph # (Auto) 0.7 L [place] # (Auto) 1.3 H Eos # (Auto) 0 Baso # (Auto) 0 Smear Path Review Absolute Retic Haptoglobin Sodium 140 Potassium 4.1 Chloride 101 Carbon Dioxide 30 Anion Gap 9.0 BUN 5 L Creatinine 0.7 GFR Calculation 84 Glucose 67 L Uric Acid 3.2 Calcium 8.7 Phosphorus 2.9 Magnesium 1.9 Iron TIBC Unsat Iron Binding Transferrin % Sat Ferritin Total Bilirubin 0.2 Direct Bilirubin < 0.2 GGT 129 H AST 17 ALT 28 Alkaline Phosphatase 64 Lactate Dehydrogenase 275 H Total Protein 4.8 L Albumin 2.7 L Globulin 2.1 L Albumin/Globulin Ratio 1.3 Triglycerides 152 H Vitamin B12 Folate TSH Stool Occult Bld Immuno Medical - DS: A/P - Patient/Caregiver Discharge Instructions Activity: as per physical therapy, increase activity as tolerated Diet: Regular Diet Additional Instructions: There are no dietary restrictions given we are trying to encourage po intake Please take Augmentin for 2 more days Take nystatin for 5 more days Patient is on home dose of prednisone 10mg daily, presently being discharged on 40mg daily, wean over 10 days to 10mg, 40mg x 5 days, 20mg x 5 days, then 10mg daily, further down titration per Neurology DuoNeb q4hrs for now, can be q6hrs once resp status is much better Encourage oral intake, pt has been started on oxandrolone 5mg bid, if this does not help pt's appetitie, and no improvement in 2 -4 weeks I would recommend to stop this treatment patient has been started on venlaflaxine for depression and anxiety, she is presently on 75mg daily, can be uptitrated as per response. If patient does not improve her oral intake, her prognosis is quite poor, in which case, palliative care could be considered. Follow up with PCP in 1-2 weeks Follow up with Surgeon in [facility] as per previous schedule. Prescriptions: Acetaminophen W/Codeine #3 [Tylenol #3] 1 tab PO Q4-6HP PRN #30 tab PRN Reason: moderate to severe pain ALPRAZolam [Xanax] 1 mg PO HSP PRN #10 tab PRN Reason: Anxiety Amoxicillin/Potassium Clav [Augmentin] 875 mg PO Q12H #4 tab Oxandrolone [Oxandrin] 5 mg PO BID #120 tab Potassium Chloride 10 meq PO DAILY #30 capsule.er - Follow up Plan Follow up with: Azar,Ashley M, PRE BILLING SPECIALIST [Primary Care Provider] - Disposition: Xfer SNF Prognosis: Undetermined Rehab Potential: Undetermined I certify that the patient requires SNF services: Yes Overall status at discharge: patient is progressing back to baseline Medical - DS: Qual - VTE Deep Vein Thrombosis/Pulmonary Embolism Present on Admission: No
== END 2018-02-08 13:13 | DRG 871 ==
LOC: ED 03:54 → SUATTDRO 09:30 → ICU 09:30 → MEDSUR 02-06 15:30
PROVIDERS: ADMIT Internal Medicine; ATTEND Internal Medicine
CPT/HCPCS: 84145; 87324; 87449; 87632; 97161; 97167; 99231; A4221; A6213; A6248; J0131; J0692; J0696; J1644; J1885; J1940; J2405; J2543; J2930; J2997; J3370; J3475; J3480; J7030; J7040; J7050; J7060; J7620; J7620-GY; J7626; J7626-GY; Q9967